=== PATIENT | female | born 1935 | race Caucasian/White ===

== ENCOUNTER → 2023-11-27 11:58 | Outpatient (REF) | payer OTHER, MEDICARE, SELFPAY ==
[2023-11-27 12:12] LABS: % Basophils 1.2 % (0-2); % Eosinophils 4.2 % (0-6); % Immature Granulocytes 0.3 % (0-0.5); % Lymphocytes 27.2 % (20.5-51.1); % Monocytes 4.9 % (1.7-9.3); % Neutrophils 62.2 % (42.2-75.2); Absolute Basophils 0.1 10^3/uL (0-0.2); Absolute Eosinophils 0.3 10^3/uL (0-0.7); Absolute Lymphocytes 1.9 10^3/uL (1.2-3.4); Absolute Monocytes 0.3 10^3/uL (0.1-0.6); Absolute Neutrophils 4.3 10^3/uL (1.4-6.5); Hematocrit 31.4 % (37.0-47.0); Mean Corp Hgb Conc. 31.8 g/dL (33.0-37.0); Mean Corpuscular Hgb 27.8 pg (27.0-31.0); Mean Corpuscular Volume 87.2 fL (81.0-99.0); Mean Platelet Volume 9.8 fL (7.4-10.4); Nucleated Red Blood Cells % 0 %; Platelet Count 479 10^3/uL (130-400); Red Cell Dist. Width 15.1 % (11.5-14.5); White Blood Cell Count 6.9 10^3/uL (4.8-10.8)
[2023-11-27 12:22] LABS: Blood Urea Nitrogen 17 mg/dl (7-17); Calcium 8.4 mg/dl (8.4-10.2); Carbon Dioxide 25 mmol/L (22-30); Chloride 110 mmol/L (98-107); Glucose 96 mg/dl (70-99); Potassium 3.9 mmol/L (3.5-5.1); Sodium 136 mmol/L (135-145); eGFR > 60.00
== END ==
LOC: OLABWHC 11:58
PROVIDERS: ATTENDING PHYSICIAN Family Medicine
DX: G20.A1 Parkinson's disease without dyskinesia, without mention of fluctuations (principal); R41.82 Altered mental status, unspecified; D64.9 Anemia, unspecified
CPT/HCPCS: 36415; 80048; 85025

== ENCOUNTER 2023-12-24 17:27 | Observation (INO) | payer MEDICARE, SELFPAY ==
[2023-12-24] VITALS (8 sets, daily range): BP systolic 124–193; BP diastolic 73–106; PULSE 82; O2SAT 97; BMI 15.8; BMI 16.5
--- NOTE | 2023-12-24 11:12 | ED.GENMED ---
History of Present Illness
General
Chief Complaint: Musculo-Skeletal Complaint
Source: patient
Exam Limitations: none
Time Seen by Provider: 12/24/23 10:37
Nursing documentation reviewed up to this point in time: agreed with
Travel History
Have you had any contact with someone who has COVID-19?: No
Do you have any symptoms of coronavirus? Fever > 100 degrees, chills, cough, shortness of breath, sore throat, loss of taste or smell, muscle aches, or headache?: No
History of Present Illness
History of Present Illness:
88-year-old female with past medical history of Parkinson's GERD presenting to the emergency department today with concerns of right-sided hip discomfort over the past 2 days. Woke up with this 2 days ago increased his comfort with movement and
ambulation. Denies fevers denies any overlying skin changes denies abdominal pain nausea vomiting change in bowel movements or additional concerns.
Review of Systems
Review of Systems
Allergies reviewed?: Yes
All Other Systems: ROS reviewed and negative except as documented in HPI and ROS
Phy Exam
Physical Exam
Physical Exam:
GENERAL: Alert , in no apparent distress
EYE: pupils equal and reactive
NECK: Supple, no significant adenopathy.
ENT: o/p clr, mmm.
CARDIAC: Regular rate and rhythm .
LUNGS: Clear breath sounds bilaterally, no acute respiratory distress, no wheezes/rales/rhonchi
ABDOMEN: Soft, without focal tenderness, no r/g, no cvat
NEUROLOGICAL: Alert and oriented, no focal neuro deficits
SKIN: Warm and dry, skin intact.
MUSCULOSKELETAL: Patient has significant discomfort of the right hip when flexing at the right hip. Has increased discomfort with passive range of motion as well at the hip otherwise able to move the knee and ankle without significant pain. No
tenderness palpation when palpating. No edema, well perfused.
PSYCH: Normal and appropriate interaction.
Course
Orders/Labs/Results
Orders:
Orders
12/24/23 11:06
Acetaminophen [Tylenol] 650 mg PO NOW STA
Hip, Right 2-3 Views [CR Hip - RT w/wo Pel 2-3 Vw*] Urgent
Comment:
Reason For Exam: right hip pain
Include a pelvis x-ray?: Yes
12/24/23 12:36
CT Pelvis W/o Iv Contrast Urgent
Comment:
Reason For Exam: hip pain cant walk
12/24/23 14:25
Case Management Consult ONCE
Case Management Consult: Other
Comment: L5 fx, needs higher level at [place]
Pt Eval And Treat Urgent
Activity Level: Ambulate
12/24/23 16:22
BMP [Basic Metabolic Panel] Urgent
CBC/With Diff [Complete Blood Count/With Diff] Urgent
Diazepam [Valium] 2 mg PO NOW STA
Vital Signs
Initial and Last Documented VS:
Initial Vital Signs
Temp Pulse Resp BP Pulse Ox
98.4 F 93 18 124/73 94
12/24/23 10:08 12/24/23 10:08 12/24/23 10:08 12/24/23 10:08 12/24/23 10:08
Last Documented Vital Signs
Temp Pulse Resp BP Pulse Ox
98.4 F 93 18 180/98 97
12/24/23 10:08 12/24/23 10:08 12/24/23 10:08 12/24/23 14:43 12/24/23 15:30
MDM/Problems Addressed
MDM/Problems Addressed:
88-year-old female presenting to the emergency department today with concerns of right-sided hip discomfort that she awoken with 2 days ago. Ongoing difficulty with ambulation secondary to this. No fevers no systemic symptoms no GI normal
neurologic examination of the lower extremities. Does have increased pain with movement but not with specific palpation to the area. Initial x-ray without signs of fracture CT scan showed insufficient fracture bilaterally of the sacrum as well as
an L5 transverse process fracture. Case was discussed with neurosurgery on-call recommending abdominal binder as well as muscle relaxer. No specific surgery required for this. Patient was additionally seen by physical therapy as well as case
management and will need to be admitted to pending further placement.
*Critical Care Note
Total Time (30-74mins, 75-104mins- exclusive of procedures): Not Applicable
ED Attending Note
-
Portions of this chart may have been created with voice recognition software.� Occasional wrong word or��sound alike� substitutions may have occurred due to the inherent limitations of voice recognition software.
Discharge Plan
Departure
Patient Disposition: Admit
Date of Disposition: 12/24/23
Time of Disposition: 16:38
Admit to: Med/Surg
Admit to doctor: Do
Presentation/result/management discussed w/ accepting MD/DO: Hospitalist
Condition: Good
Covid-19: Not Applicable
Discharge Problem:
Bilateral sacral insufficiency fracture, Closed fracture of transverse process of lumbar vertebra
Prescriptions:
No Action
acetaminophen 325 mg Tablet
650 mg PO Q6HPRN PRN (Reason: mild pain)
cyanocobalamin (vitamin B-12) 500 mcg Tablet
500 mcg PO DAILY
benzonatate 100 mg Capsule
100 mg PO Q8HPRN PRN (Reason: cough)
mirtazapine 15 mg Tablet
15 mg PO HS
ferrous sulfate 325 mg (65 mg iron) Tablet,Delayed Release (Dr/Ec)
325 mg PO MOWEFR
wcmbgpiky-exinsyip-bcxrddhzqz 37.5-150-200 mg Tablet
1 tab PO TID
melatonin 5 mg Tablet
5 mg PO HS
multivitamin Tablet
1 tab PO DAILY
pantoprazole 20 mg Tablet,Delayed Release (Dr/Ec)
20 mg PO DAILY
calcium carbonate [Calcium 500] 500 mg calcium (1,250 mg) Tablet,Chewable
500 mg PO DAILY
gabapentin 100 mg Capsule
100 mg PO TID
Boost Breeze Liquid
1 ea PO BID
Referrals:
Gali Medel MD [Family Provider] -
Interventions
Interventions:
*General Assessment Last Done: 12/24/23 11:28
*Neglect/Abuse Screening Last Done: 12/24/23 11:28
ED- Fall Risk Assessment Last Done: 12/24/23 13:16
*ED COVID-19 Vaccine History Last Done: 12/24/23 10:17
ED-Musculoskeletal Assessment Last Done: 12/24/23 11:28
[2023-12-24] MEDS: TYLENOL 650 MG PO (11:24)
--- NOTE | 2023-12-24 15:46 | CM ---
Addendum entered by Yolis Shukla RN 12/24/23 16:14:
CM spoke with [facility] admissions liaison Bharat ([phone]). Per Bharat, patient was admitted to [facility] 11/17-12/10; then to [facility] since. PT recommending SNF/rehab. [facility] has no beds available at this time. If SNF placement is needed, it will
have to be private pay. Spoke with patient's son Андрей and updated on the situation. Not happy since they put a down payment of some type last week of $90K for care. CM continues to be available to patient/family and is monitoring medical plan
for needs at discharge.
Plan: Discharge plans will depend on the patient's progress. Attending updated on above.
Original Note:
Received CM consult for discharge planning for NH placement. Reviewed the chart notes and spoke with the patient at the bedside. The patient resides at [facility]. The patient uses a rollator with ambulation. The patient has a shower chair and
shower rails. The patient report no VN, but was in a SNF in [facility]. PT recommending SNF. CM to contact family with regards to SNF placement. CM continues to be available to patient/family and is monitoring medical plan for needs at
discharge.
Plan: Discharge plans will depend on the patient's progress.
[2023-12-24] MEDS: VALIUM 2 MG PO (16:29)
[2023-12-24 16:51] LABS: % Eosinophils 3.7 % (0-6); % Immature Granulocytes 0.4 % (0-0.5); % Lymphocytes 27.2 % (20.5-51.1); % Monocytes 3.5 % (1.7-9.3); % Neutrophils 64.2 % (42.2-75.2); Absolute Basophils 0.1 10^3/uL (0-0.2); Absolute Eosinophils 0.3 10^3/uL (0-0.7); Absolute Lymphocytes 2.2 10^3/uL (1.2-3.4); Absolute Monocytes 0.3 10^3/uL (0.1-0.6); Absolute Neutrophils 5.2 10^3/uL (1.4-6.5); Hematocrit 32.8 % (37.0-47.0); Hemoglobin 10.9 g/dL (12.0-16.0); Mean Corp Hgb Conc. 33.2 g/dL (33.0-37.0); Mean Corpuscular Hgb 27.4 pg (27.0-31.0); Mean Corpuscular Volume 82.4 fL (81.0-99.0); Mean Platelet Volume 9.1 fL (7.4-10.4); Nucleated Red Blood Cells % 0 %; Platelet Count 266 10^3/uL (130-400); Red Blood Cell Count 3.98 10^6/uL (4.20-5.40); Red Cell Dist. Width 17.2 % (11.5-14.5); White Blood Cell Count 8.1 10^3/uL (4.8-10.8)
--- NOTE | 2023-12-24 17:10 | HPS.HSE ---
Family Physician
-
Family Physician: Gali Medel MD
Chief Complaint
-
right hip pain
History of Present Illness
88-year-old female with past medical history of osteoporosis Parkinson's, GERD, gastric ulcer status post bowel resection, lactose intolerance, chronic loose stools, presenting for right-sided hip pain over the past 2 days. She woke up 2 days ago
increased pain with movement and ambulation in the right lower back and butt. She normally ambulates with walker. She denies any falls. Denies fevers, nausea or vomiting, diarrhea or constipation or urinary symptoms.
Patient was supposed to get started on Prolia by her primary after her last DEXA scan but she never got started on this.
Medical History
Past Medical History
Past Medical History: Reports Other (osteoporosis, Parkinson's, GERD, gastric ulcer status post bowel resection, lactose intolerance)
Past Surgical History: Reports Bowel Resection
Social History
Tobacco: Non-smoker
Alcohol: Occasional
Drug: None
Family History
Family History: Not pertinent
Allergies / Home Medications
Allergies reflects when Allergies were last updated in [employer].
Home Medications with original date entered in [employer]
Allergy/Medication List:
Allergies
Allergy/AdvReac Type Severity Reaction Status Date / Time
oxycodone Allergy Pharmacy Verified 12/24/23 12:57
to Review
Home Medications
acetaminophen 325 mg tablet 650 mg PO Q6HPRN PRN mild pain 12/24/23
benzonatate 100 mg capsule 100 mg PO Q8HPRN PRN cough 12/24/23
calcium carbonate 500 mg calcium (1,250 mg) chewable tablet (Calcium 500) 500 mg PO DAILY 12/24/23
carbidopa 37.5 mg-levodopa 150 mg-entacapone 200 mg tablet 1 tab PO TID 12/24/23
cyanocobalamin (vitamin B-12) 500 mcg tablet 500 mcg PO DAILY 12/24/23
ferrous sulfate 325 mg (65 mg iron) tablet,delayed release 325 mg PO MOWEFR 12/24/23
food supplemt, lactose-reduced 1 ea PO BID 12/24/23
gabapentin 100 mg capsule 100 mg PO TID 12/24/23
melatonin 5 mg tablet 5 mg PO HS insomnia 12/24/23
mirtazapine 15 mg tablet 15 mg PO HS 12/24/23
multivitamin 1 tab PO DAILY 12/24/23
pantoprazole 20 mg tablet,delayed release 20 mg PO DAILY 12/24/23
Review of Systems
-
History Source: Patient
A 12 point ROS was completed and negative except as noted: Yes
Constitutional: Reports No Symptoms
EENT: Reports No Symptoms
Respiratory: Reports No Symptoms
Cardiac: Reports No Symptoms
Abdomen/GI: Reports No Symptoms
: Reports No Symptoms
Musculoskeletal: Reports No Symptoms
Skin: Reports No Symptoms
Neurological: Reports No Symptoms
Endocrine: Reports No Symptoms
Hematologic/Lymphatic: Reports No Symptoms
Psych: Reports No Symptoms
Physical Exam
Vital Signs
Vital Signs
Temp Pulse Resp BP Pulse Ox
98.4 F 80 18 193/89 95
12/24/23 10:08 12/24/23 17:00 12/24/23 10:08 12/24/23 17:00 12/24/23 17:00
Physical Exam
General: Well Developed, Well Nourished and No Apparent Distress
HEENT: NormoCephalic, Moist mucous membranes and Atraumatic
Respiratory: Clear
Cardiac: S1/S2 and Regular Rhythm; No Murmur or Rub
GI: Soft, Non Tender, Non Distended and Normal Bowel Sounds; No Organomegaly
Rectal: Deferred by Provider
Musculoskeletal: No Clubbing, No Cyanosis and No Edema
Skin: No Rash
Neuro: Nonfocal/grossly intact
Laboratory Results
-
03/11/24 16:30
Data Reviewed
-
Lab Data: Labs Reviewed by me
Old Records: Reviewed
Impression/Plan
-
IMPRESSION:
PLAN:
# Insufficiency fractures of bilateral sacrum
# Acute fracture of proximal aspect of right transverse process of L5
# Osteoporosis
-As per pelvic CT
-Hip x-ray negative
-Tylenol for pain
-Neurosurgery recommended back brace and muscle relaxer and did not recommend surgery
-Patient given Valium
-PT/case management
-Continue calcium and vitamin D supplement which patient has been taking
-Outpatient follow-up for Prolia
# Hypertensive urgency secondary to pain
-No history of elevated blood pressure
-As needed hydralazine
Lower extremity edema secondary to venous insufficiency
-Improved with raising legs
Parkinson's disease
-Continue carbidopa-levodopa
-Continue gabapentin
Anxiety/depression
-Continue mirtazapine
GERD
History of gastric ulcer status post bowel resection
-Continue Protonix
Lactose intolerance
DNR/DNI
DVT prophylaxis- heparin
Regular diet
[2023-12-24 17:16] LABS: Blood Urea Nitrogen 17 mg/dl (7-17); Calcium 8.6 mg/dl (8.4-10.2); Carbon Dioxide 25 mmol/L (22-30); Chloride 111 mmol/L (98-107); Estimated Creatinine Clearance 35 ml/min; Glucose 93 mg/dl (70-99); Potassium 4.4 mmol/L (3.5-5.1); Sodium 137 mmol/L (135-145); eGFR > 60.00
[2023-12-24] MEDS: APRESOLINE 5 MG IV (18:51)
[2023-12-24] MEDS: FEOSOL 325 MG PO (18:51)
--- NOTE | 2023-12-24 19:29 | PTCARENOTE ---
Pt received from ED. Hydralazine 5mg VA administered for elevated BP as prdered. Pt is AAOx3 nd can make needs known.
[2023-12-24] MEDS: HEPARIN 5000 UNITS SC (20:52)
[2023-12-24] MEDS: SINEMET 25-100 1.5 TABLET PO (21:00)
[2023-12-24] MEDS: COMTAN 200 MG PO (21:00)
[2023-12-24] MEDS: NEURONTIN 100 MG PO (21:00)
[2023-12-24] MEDS: REMERON 15 MG PO (21:55)
[2023-12-24] MEDS: MELATONIN 5 MG PO (21:55)
[2023-12-25] MEDS: TYLENOL 650 MG PO ×3 (04:03→23:03)
[2023-12-25 04:10] VITALS: BP 151/82; BP 152/74; PULSE 97
[2023-12-25 07:55] VITALS: BP 161/85
--- NOTE | 2023-12-25 08:00 | W.PN.HOSP.TC ---
Addendum entered and electronically signed by Dominic Alvarenga MD 12/25/23 13:48:
Add amlodipine 2.5 mg daily and oxy prn if not true allergy
Original Note:
Today's Communication/Plan
-
pain control, pt/ot. Discharge planning in progress
Assessment / Plan
Assessment / Plan
Physical Exam
General: Well Developed, Well Nourished and No Apparent Distress
HEENT: NormoCephalic, Moist mucous membranes and Atraumatic
Respiratory: Clear
Cardiac: S1/S2 and Regular Rhythm; No Murmur or Rub
GI: Soft, Non Tender, Non Distended and Normal Bowel Sounds; No Organomegaly
Rectal: Deferred by Provider
Musculoskeletal: No Clubbing, No Cyanosis and No Edema
Skin: No Rash
Neuro: Nonfocal/grossly intact
A/P:
# Insufficiency fractures of bilateral sacrum
# Acute fracture of proximal aspect of right transverse process of L5
# Osteoporosis
-As per pelvic CT
-Hip x-ray negative
-Tylenol for pain
-Neurosurgery recommended back brace and muscle relaxer and did not recommend surgery
-Patient given Valium
-PT/case management
-Continue calcium and vitamin D supplement which patient has been taking
-Outpatient follow-up for Prolia
# Hypertensive urgency secondary to pain
-No history of elevated blood pressure
-As needed hydralazine
Lower extremity edema secondary to venous insufficiency
-Improved with raising legs
Parkinson's disease
-Continue carbidopa-levodopa
-Continue gabapentin
Anxiety/depression
-Continue mirtazapine
GERD
History of gastric ulcer status post bowel resection
-Continue Protonix
Lactose intolerance
DNR/DNI
DVT prophylaxis- heparin
Regular diet
Anticipated Discharge: Today
Subjective/Interval History
-
Date of Service: December 25, 2023
pain when moving around
Objective Data
-
Labs:
Laboratory Results
12/25/23
07:50
WBC Pending
Hgb Pending
Hct Pending
Plt Count Pending
Sodium Pending
Potassium Pending
Chloride Pending
Carbon Dioxide Pending
BUN Pending
Creatinine Pending
Glucose Pending
Calcium Pending
Total Bilirubin Pending
AST Pending
ALT Pending
Alkaline Phosphatase Pending
Vital Signs:
Vital Signs
Temp Pulse Resp BP Pulse Ox
98.3 F 90 20 133/80 95
12/24/23 22:00 12/24/23 22:00 12/24/23 22:00 12/24/23 22:00 12/24/23 22:00
I&O
12/24/23 12/25/23 12/26/23
06:59 06:59 06:59
Intake Total 480 / 480
Output Total 600 / 600
Balance -120 / -120
Review of Systems
-
All other systems: Reviewed and negative
[2023-12-25 08:34] LABS: % Basophils 0.7 % (0-2); % Eosinophils 5.5 % (0-6); % Immature Granulocytes 0.3 % (0-0.5); % Lymphocytes 43.8 % (20.5-51.1); % Monocytes 4.1 % (1.7-9.3); % Neutrophils 45.6 % (42.2-75.2); Absolute Basophils 0.1 10^3/uL (0-0.2); Absolute Eosinophils 0.4 10^3/uL (0-0.7); Absolute Lymphocytes 3.1 10^3/uL (1.2-3.4); Absolute Monocytes 0.3 10^3/uL (0.1-0.6); Absolute Neutrophils 3.2 10^3/uL (1.4-6.5); Hemoglobin 11.5 g/dL (12.0-16.0); Mean Corp Hgb Conc. 31.9 g/dL (33.0-37.0); Mean Corpuscular Hgb 27.3 pg (27.0-31.0); Mean Corpuscular Volume 85.3 fL (81.0-99.0); Mean Platelet Volume 9.4 fL (7.4-10.4); Nucleated Red Blood Cells % 0 %; Platelet Count 308 10^3/uL (130-400); Red Blood Cell Count 4.22 10^6/uL (4.20-5.40); Red Cell Dist. Width 17.4 % (11.5-14.5)
[2023-12-25] MEDS: VITAMIN B-12 500 MCG PO (08:35)
[2023-12-25] MEDS: PROTONIX 20 MG PO (08:42)
[2023-12-25] MEDS: NEURONTIN 100 MG PO ×3 (08:43→23:03)
[2023-12-25] MEDS: THERAGRAN 1 TABLET PO (08:43)
[2023-12-25] MEDS: OSCAL CAL 500 500 MG PO (08:43)
[2023-12-25] MEDS: SINEMET 25-100 1.5 TABLET PO ×3 (08:43→23:03)
[2023-12-25] MEDS: COMTAN 200 MG PO ×3 (08:43→23:03)
[2023-12-25] MEDS: HEPARIN 5000 UNITS SC ×2 (08:44→20:12)
[2023-12-25 09:18] LABS: ALT (SGPT) < 10 U/L (0-35); AST (SGOT) 19 U/L (14-36); Albumin 3.3 g/dl (3.5-5.0); Alkaline Phosphatase 172 U/L (38-126); Blood Urea Nitrogen 15 mg/dl (7-17); Calcium 8.8 mg/dl (8.4-10.2); Carbon Dioxide 25 mmol/L (22-30); Chloride 106 mmol/L (98-107); Estimated Creatinine Clearance 34 ml/min; Glucose 89 mg/dl (70-99); Potassium 3.9 mmol/L (3.5-5.1); Sodium 137 mmol/L (135-145); Total Bilirubin 0.6 mg/dl (0.2-1.3); eGFR > 60.00
[2023-12-25 15:07] VITALS: BP 118/62
[2023-12-25 16:10] VITALS: BP 151/82; BP 152/74; PULSE 97
[2023-12-25 16:35] VITALS: BMI 15.1
[2023-12-25] MEDS: NORVASC 2.5 MG PO (17:23)
[2023-12-25 22:30] VITALS: BP 119/57
[2023-12-25] MEDS: ZOFRAN 4 MG IV (22:32)
[2023-12-25] MEDS: MELATONIN 5 MG PO (23:03)
[2023-12-25] MEDS: REMERON 15 MG PO (23:03)
[2023-12-26 07:20] VITALS: BP 96/48
--- NOTE | 2023-12-26 09:00 | W.PN.HOSP.TC ---
Addendum entered and electronically signed by Dominic Alvarenga MD 12/26/23 12:49:
Will also obtain echocardiogram
Original Note:
Today's Communication/Plan
-
Continue pain control. Check stool studies.
Assessment / Plan
Assessment / Plan
Physical Exam
General: Well Developed, Well Nourished and No Apparent Distress
HEENT: NormoCephalic, Moist mucous membranes and Atraumatic
Respiratory: Clear
Cardiac: S1/S2 and Regular Rhythm; No Murmur or Rub
GI: Soft, Non Tender, Non Distended and Normal Bowel Sounds; No Organomegaly
Rectal: Deferred by Provider
Musculoskeletal: No Clubbing, No Cyanosis and No Edema
Skin: No Rash
Neuro: Nonfocal/grossly intact
A/P:
# Insufficiency fractures of bilateral sacrum
# Acute fracture of proximal aspect of right transverse process of L5
# Osteoporosis
-As per pelvic CT
-Hip x-ray negative
-Tylenol for pain
-Neurosurgery recommended back brace and muscle relaxer and did not recommend surgery
-Patient given Valium
-PT/case management
-Continue calcium and vitamin D supplement which patient has been taking
-Outpatient follow-up for Prolia
-Updated son over the phone today, Андрей (Daquan s number is wrong and correct is [phone])
#Diarrhea
-Will check C. difficile and stool studies
-Will do some gentle hydration today
# Elevated blood pressure-->pain might be contributing so at this point she is not clearly hypertensive
-Started her on amlodipine 2.5 mg p.o. daily--> discontinue today
-No history of elevated blood pressure
-As needed hydralazine-will keep if needed and reeval
Lower extremity edema secondary to venous insufficiency
-Improved with raising legs
Parkinson's disease
-Continue carbidopa-levodopa
-Continue gabapentin
Anxiety/depression
-Continue mirtazapine
GERD
History of gastric ulcer status post bowel resection
-Continue Protonix
Lactose intolerance
DNR/DNI
DVT prophylaxis- heparin
Regular diet
Anticipated Discharge: 24 - 48 hours
Subjective/Interval History
-
Date of Service: December 26, 2023
patient c/o diarrhea, has generalized weakness. Pain is tolerable
Objective Data
-
Vital Signs:
Vital Signs
Temp Pulse Resp BP Pulse Ox
98.9 F 86 16 96/48 94
12/26/23 07:20 12/26/23 07:20 12/26/23 07:20 12/26/23 07:20 12/26/23 07:20
I&O
12/25/23 12/26/23 12/27/23
06:59 06:59 06:59
Intake Total 480 / 480 960 / 960
Output Total 600 / 600
Balance -120 / -120 960 / 960
[2023-12-26] MEDS: SINEMET 25-100 1.5 TABLET PO ×3 (09:22→21:00)
[2023-12-26] MEDS: PROTONIX 20 MG PO (09:22)
[2023-12-26] MEDS: OSCAL CAL 500 500 MG PO (09:23)
[2023-12-26] MEDS: VITAMIN B-12 500 MCG PO (09:23)
[2023-12-26] MEDS: COMTAN 200 MG PO ×3 (09:23→21:00)
[2023-12-26] MEDS: NORVASC 2.5 MG PO (09:23)
[2023-12-26] MEDS: NEURONTIN 100 MG PO ×3 (09:24→21:00)
[2023-12-26] MEDS: THERAGRAN 1 TABLET PO (09:24)
[2023-12-26] MEDS: HEPARIN 5000 UNITS SC ×2 (09:25→20:13)
[2023-12-26] MEDS: FEOSOL 325 MG PO (09:27)
[2023-12-26] MEDS: IMODIUM 2 MG PO ×2 (13:36→20:15)
[2023-12-26] MEDS: 0.45%NACL 1000 IV (13:36)
--- NOTE | 2023-12-26 15:01 | CM ---
CM following re: d/c planning
Chart reviewed
CM called & left a message for patient's son Андрей to discuss disposition plan; awaiting a return call at this time
CM spoke with Yadi joe/Sasha and she confirmed that the patient is not a [facility] patient
The number listed in the patient's chart for Daquan is not the correct number
Pt is nearing being medically stable for d/c and post d/c recommendation is for SNF
Pt is currently in observation status as she does not meet inpatient admission criteria
Pt family would need to pay privately for SNF prior to returning back to her [place] home
CM will continue to monitor patient progress and assist with needs at d/c as indicated
PLAN; CM following for d/c needs
[2023-12-26 15:33] VITALS: BP 139/68
[2023-12-26] MEDS: TUMS 2 TABLET PO (20:47)
[2023-12-26] MEDS: REMERON 15 MG PO (21:00)
[2023-12-26] MEDS: MELATONIN 5 MG PO (21:00)
[2023-12-26 23:16] VITALS: BP 122/62
[2023-12-27 06:37] VITALS: BMI 15.1
[2023-12-27 07:00] VITALS: BP 140/67
[2023-12-27 07:49] LABS: % Basophils 0.6 % (0-2); % Eosinophils 5.2 % (0-6); % Immature Granulocytes 0.4 % (0-0.5); % Lymphocytes 32.5 % (20.5-51.1); % Monocytes 5.8 % (1.7-9.3); % Neutrophils 55.5 % (42.2-75.2); Absolute Eosinophils 0.3 10^3/uL (0-0.7); Absolute Lymphocytes 1.7 10^3/uL (1.2-3.4); Absolute Monocytes 0.3 10^3/uL (0.1-0.6); Absolute Neutrophils 2.9 10^3/uL (1.4-6.5); Hematocrit 32.7 % (37.0-47.0); Hemoglobin 10.8 g/dL (12.0-16.0); Mean Corpuscular Volume 84.7 fL (81.0-99.0); Mean Platelet Volume 9.6 fL (7.4-10.4); Nucleated Red Blood Cells % 0 %; Platelet Count 255 10^3/uL (130-400); Red Blood Cell Count 3.86 10^6/uL (4.20-5.40); Red Cell Dist. Width 17.2 % (11.5-14.5); White Blood Cell Count 5.2 10^3/uL (4.8-10.8)
[2023-12-27 08:28] LABS: Blood Urea Nitrogen 24 mg/dl (7-17); Calcium 7.8 mg/dl (8.4-10.2); Carbon Dioxide 23 mmol/L (22-30); Chloride 111 mmol/L (98-107); Estimated Creatinine Clearance 25 ml/min; Glucose 87 mg/dl (70-99); Potassium 3.7 mmol/L (3.5-5.1); Sodium 135 mmol/L (135-145); eGFR 54.87
--- NOTE | 2023-12-27 08:51 | W.PN.HOSP.TC ---
Today's Communication/Plan
-
Continue current management. Discharge planning in progress
Assessment / Plan
Assessment / Plan
Physical Exam
General: Well Developed, Well Nourished and No Apparent Distress
HEENT: NormoCephalic, Moist mucous membranes and Atraumatic
Respiratory: Clear
Cardiac: S1/S2 and Regular Rhythm; No Murmur or Rub
GI: Soft, Non Tender, Non Distended and Normal Bowel Sounds; No Organomegaly
Rectal: Deferred by Provider
Musculoskeletal: No Clubbing, No Cyanosis and No Edema
Skin: No Rash
Neuro: Nonfocal/grossly intact
A/P:
# Insufficiency fractures of bilateral sacrum
# Acute fracture of proximal aspect of right transverse process of L5
# Osteoporosis
-As per pelvic CT
-Hip x-ray negative
-Tylenol for pain
-Neurosurgery recommended back brace and muscle relaxer and did not recommend surgery
-Patient given Valium
-PT/case management
-Continue calcium and vitamin D supplement which patient has been taking
-Outpatient follow-up for Prolia
-Updated son over the phone yesterday, Андрей (Daquan s number is wrong and correct is [phone])
-Updated both sons at bedside today on 12/26
#Diarrhea
-Negative C. difficile and stool studies summary pending
-Finished IV fluid
# Elevated blood pressure-->pain might be contributing so at this point she is not clearly hypertensive
-Off antihypertensives
-No history of elevated blood pressure
-As needed hydralazine-will keep if needed and reeval
Lower extremity edema secondary to venous insufficiency
-Improved with raising legs
-Echo pending
Parkinson's disease
-Continue carbidopa-levodopa
-Continue gabapentin
Anxiety/depression
-Continue mirtazapine
GERD
History of gastric ulcer status post bowel resection
-Continue Protonix
Lactose intolerance
DNR/DNI
DVT prophylaxis- heparin
Regular diet
Anticipated Discharge: Today
Subjective/Interval History
-
Date of Service: December 27, 2023
Patient denies any chest pain or shortness of breath. Still having some loose stools
Objective Data
-
Labs:
Laboratory Results
12/27/23
06:57
WBC 5.2
Hgb 10.8 L
Hct 32.7 L
Plt Count 255
Sodium 135
Potassium 3.7
Chloride 111 H
Carbon Dioxide 23
BUN 24 H
Creatinine 1.0
Glucose 87
Calcium 7.8 L
Vital Signs:
Vital Signs
Temp Pulse Resp BP Pulse Ox
97.9 F 68 18 140/67 98
12/27/23 07:00 12/27/23 07:00 12/27/23 07:00 12/27/23 07:00 12/27/23 07:00
I&O
12/26/23 12/27/23 12/28/23
06:59 06:59 06:59
Intake Total 960 / 960 480 / 480
Output Total 700 / 700
Balance 960 / 960 -220 / -220
[2023-12-27] MEDS: SINEMET 25-100 1.5 TABLET PO ×2 (09:10→15:33)
[2023-12-27] MEDS: PROTONIX 20 MG PO (09:10)
[2023-12-27] MEDS: VITAMIN B-12 500 MCG PO (09:13)
[2023-12-27] MEDS: COMTAN 200 MG PO ×2 (09:14→15:34)
[2023-12-27] MEDS: OSCAL CAL 500 500 MG PO (09:14)
[2023-12-27] MEDS: HEPARIN 5000 UNITS SC (09:15)
[2023-12-27] MEDS: NEURONTIN 100 MG PO ×2 (09:15→15:34)
[2023-12-27] MEDS: THERAGRAN 1 TABLET PO (09:15)
--- NOTE | 2023-12-27 09:26 | CM ---
Addendum entered by Meg Copeland 12/27/23 15:36:
CM received a return call from Jabari joe/ [employer] with insurance approval
Pt approved for 5 days
SOC 12/27/23 with NRD 12/31/23
Kassy Palacios is the concurrent UR RN assigned and she can be reached at
Fax:
[facility] reference # [id number]
[facility] & inhouse transport forms completed and placed on patient chart
Transport p/u time confirmed by [facility] at 7:45pm; CM notified Bharat Cuellar at the facility of the same
Plan; d/c to [facility]
Report: [phone]

Original Note:
CM following re: d/c planning
Chart reviewed
Pt discharge anticipated within the next day or two
Pain management efforts continue; hip xray is (-)
Per hospitalist at this time awaiting results of echo
CM did submit authorization for SNF placement through [employer] ref.#[id number] awaiting updated therapy notes to submit clinicals
CM also spoke with the Karan Cuellar/admissions liaison@ [facility] to provide her an update as well
CM will continue to remain available to assist with SNF d/c pending insurance authorization
PLAN; d/c to [facility]
(pending reference number: [id number])
[2023-12-27 12:38] VITALS: BMI 15.1
[2023-12-27 15:00] VITALS: BP 128/70
--- NOTE | 2023-12-27 15:26 | W.DCSUMMARY ---
Discharge Summary
Discharge Data
Date of Admission: 12/24/23
Date of Discharge: 12/27/23
-
Pending Results: No
Hospital Course
Patient 88-year-old history of Parkinson's, osteoporosis, presented to the hospital with right hip pain and ambulatory dysfunction. She was found to have insufficiency fractures of bilateral sacrum. She was treated with pain medications and PT OT
evaluation but recommended fci facility. Blood pressure was elevated due to pain and has been under control once the pain has been better. She also had mild edema of lower extremities but no evidence of heart failure. She had an
echocardiogram that was unremarkable. She also had some diarrhea and C. difficile was negative. Stool culture pending. She has been started on some antidiarrhea medications. Patient otherwise stable and she is being discharged in stable
condition today.
Discharge duration: 35 minutes
Discharge Plan
-
Patient Disposition: Shelter/SNF
Discharge Diagnosis/Procedures: Bilateral sacral insufficiency fractures. Elevated blood pressure. Parkinson's disease. History of peptic ulcer disease.
Diet: Low Cholesterol
Activity: As tolerated
Blood Work: Please PCP to order CBC, BMP within 1 week
Other Services: PT and OT
Referrals:
Gali Medel MD [Family Provider] - in less than 1 week
Prescriptions:
New
loperamide 2 mg Capsule
2 mg PO Q6HPRN PRN (Reason: diarrhea) Qty: 10 0RF
oxycodone 5 mg Tablet
5 mg PO Q4HPRN PRN (Reason: severe pain) Qty: 4 0RF
Continued
acetaminophen 325 mg Tablet
650 mg PO Q6HPRN PRN (Reason: mild pain)
cyanocobalamin (vitamin B-12) 500 mcg Tablet
500 mcg PO DAILY
benzonatate 100 mg Capsule
100 mg PO Q8HPRN PRN (Reason: cough)
mirtazapine 15 mg Tablet
15 mg PO HS
ferrous sulfate 325 mg (65 mg iron) Tablet,Delayed Release (Dr/Ec)
325 mg PO MOWEFR
efkobcogo-lepvnlig-overtxojmb 37.5-150-200 mg Tablet
1 tab PO TID
melatonin 5 mg Tablet
5 mg PO HS
multivitamin Tablet
1 tab PO DAILY
pantoprazole 20 mg Tablet,Delayed Release (Dr/Ec)
20 mg PO DAILY
calcium carbonate [Calcium 500] 500 mg calcium (1,250 mg) Tablet,Chewable
500 mg PO DAILY
gabapentin 100 mg Capsule
100 mg PO TID
food supplemt, lactose-reduced Liquid
1 ea PO BID
Discharge Orders:
Discharge Patient (As Directed); Ordered 12/27/23
Ordered By: Dominic Alvarenga
Discharge Date and Time
Discharge Date/Time: 12/27/23 20:23
[2023-12-27] MEDS: IMODIUM 2 MG PO (15:34)
[2023-12-27] MEDS: TYLENOL 650 MG PO (19:54)
--- NOTE | 2023-12-27 20:17 | PTCARENOTE ---
Pt discharged to [facility] per orders. All belongings sent with pt
== END 2023-12-27 20:23 ==
LOC: 4 EAST ACU 17:27
PROVIDERS: Physician Assistant; ADMITTING PHYSICIAN Hospitalist; ATTENDING PHYSICIAN Hospitalist; EMERGENCY PHYSICIAN Emergency Medicine; FAMILY PHYSICIAN Family Medicine
DX: M80.08XA Age-related osteoporosis with current pathological fracture, vertebra(e), initial encounter for fracture (principal); M25.551 Pain in right hip; G20.A1 Parkinson's disease without dyskinesia, without mention of fluctuations; K21.9 Gastro-esophageal reflux disease without esophagitis; E73.9 Lactose intolerance, unspecified; R60.0 Localized edema; M54.50 Low back pain, unspecified; F32.A Depression, unspecified; R19.7 Diarrhea, unspecified; I16.0 Hypertensive urgency; F41.9 Anxiety disorder, unspecified; I87.2 Venous insufficiency (chronic) (peripheral); X58.XXXA Exposure to other specified factors, initial encounter; Z87.11 Personal history of peptic ulcer disease; Z90.49 Acquired absence of other specified parts of digestive tract; Z88.5 Allergy status to narcotic agent; Z66 Do not resuscitate
CPT/HCPCS: 72192; 73502; 80048; 80053; 85025; 87045; 87046; 87070; 87324; 87427; 87449; 93306; 97116; 97530; 99285; G0378

== ENCOUNTER → 2023-12-31 11:48 | Outpatient (REF) | payer OTHER, MEDICARE, SELFPAY ==
[2023-12-31 12:29] LABS: Hematocrit 33.3 % (37.0-47.0); Hemoglobin 10.3 g/dL (12.0-16.0); Mean Corp Hgb Conc. 30.9 g/dL (33.0-37.0); Mean Corpuscular Hgb 27.3 pg (27.0-31.0); Mean Corpuscular Volume 88.3 fL (81.0-99.0); Mean Platelet Volume 10.1 fL (7.4-10.4); Platelet Count 297 10^3/uL (130-400); Red Blood Cell Count 3.77 10^6/uL (4.20-5.40); Red Cell Dist. Width 17.4 % (11.5-14.5); White Blood Cell Count 6.9 10^3/uL (4.8-10.8)
[2023-12-31 13:06] LABS: ALT (SGPT) < 10 U/L (0-35); AST (SGOT) 23 U/L (14-36); Albumin 2.8 g/dl (3.5-5.0); Alkaline Phosphatase 128 U/L (38-126); Blood Urea Nitrogen 20 mg/dl (7-17); Calcium 8.4 mg/dl (8.4-10.2); Carbon Dioxide 25 mmol/L (22-30); Chloride 108 mmol/L (98-107); Glucose 94 mg/dl (70-99); Potassium 4.4 mmol/L (3.5-5.1); Sodium 138 mmol/L (135-145); Total Bilirubin 0.3 mg/dl (0.2-1.3); Total Protein 5.2 g/dl (6.3-8.2); eGFR > 60.00
== END ==
LOC: OLABWHC 11:48
PROVIDERS: ATTENDING PHYSICIAN Family Medicine
DX: N18.9 Chronic kidney disease, unspecified (principal); G20.A1 Parkinson's disease without dyskinesia, without mention of fluctuations; C91.90 Lymphoid leukemia, unspecified not having achieved remission
CPT/HCPCS: 36415; 80053; 85027

== ENCOUNTER 2024-01-03 20:21 | Inpatient (IN) | payer MEDICARE, SELFPAY ==
[2024-01-03] VITALS (10 sets, daily range): BP systolic 90–141; BP diastolic 47–76; BMI 16.2
--- NOTE | 2024-01-03 16:00 | ED.GENMED ---
History of Present Illness
General
Chief Complaint: Fever
Time Seen by Provider: 01/03/24 15:51
Travel History
Have you had any contact with someone who has COVID-19?: Unable to Answer
Do you have any symptoms of coronavirus? Fever > 100 degrees, chills, cough, shortness of breath, sore throat, loss of taste or smell, muscle aches, or headache?: Yes
Symptoms:: cough, fever
History of Present Illness
History of Present Illness:
Patient is an 88-year-old female currently a DNR with past medical history of dyspepsia, chronic kidney disease, iron deficiency anemia, osteoporosis, chronic lymphocytic leukemia, insomnia, Parkinson's disease, depression, and vitamin B12
deficiency anemia who currently resides at [facility], here today via EMS for a fever and suspected pneumonia. Patient has had a cough of the past couple of days associated with fever. An x-ray was ordered at the nursing
facility which revealed findings of pneumonia. Patient was ultimately directed to the emergency department given this. Patient denies vomiting. No abdominal pain. She has been able to tolerate p.o.
Review of Systems
Review of Systems
All Other Systems: ROS reviewed and negative except as documented in HPI and ROS
Phy Exam
Physical Exam
Physical Exam:
GENERAL: Alert , in no apparent distress
EYE: pupils equal and reactive
NECK: Supple, no significant adenopathy.
ENT: o/p clr, mmm.
CARDIAC: Regular rate and rhythm .
LUNGS: Diminished air movement, scattered rales/rhonchi, no acute respiratory distress, no wheezes
ABDOMEN: Soft, without focal tenderness, no r/g, no cvat
NEUROLOGICAL: Alert and oriented, no focal neuro deficits
SKIN: Warm and dry, skin intact.
MUSCULOSKELETAL: No edema, well perfused.
PSYCH: Normal and appropriate interaction.
Course
Orders/Labs/Results
Orders:
Orders
01/03/24 15:46
EKG [Electrocardiogram (*1)] Urgent
Reason for Study: Fatigue / Weakness
EKG- Treatment ONCE
01/03/24 15:50
COVID-19 Antigen Urgent
Source: Nasal Swab
Complete Blood Count/With Diff Urgent
Comprehensive Metabolic Panel Urgent
Lactic Acid Urgent
Blood Culture Q30M
JUDE Source: Blood/Venous
Specimen Description:
Influenza A+B Rapid Molecular Urgent
JUDE Source: Nasal Swab
Specimen Description:
01/03/24 15:58
Blood Culture Q30M
JUDE Source: Blood/Venous
Specimen Description:
01/03/24 15:59
Acetaminophen [Tylenol] 650 mg PO NOW STA
CR Chest - 2 Views Urgent
Comment:
Reason For Exam: pna
01/03/24 17:15
NT-proBNP Urgent
01/03/24 18:07
CefTRIAXone [Rocephin] 1,000 mg IV NOW STA
Furosemide [Lasix] 20 mg IV ONCE ONE
01/03/24 19:00
Azithromycin 500 mg/250 ml [Zithromax Infusion] 500 mg in 250 ml IV Q24H
01/03/24 19:40
Admit/Transfer Patient As Directed
Co-Sign Provider:
Level of Care: Inpatient admission
Assign to:: Telemetry
Physician / Group: Sharan
Diagnosis: Pneumonia
Reason for Telemetry: Chest Pain syndromes
Date to Stop Telemetry: 01/05/24
Time to Stop Telemetry: 11:00
Reason for Hospitalization: Pneumonia
Expected length of stay greater than two midnights?: Yes
ELOS- Estimated Length of Stay in days: 3
I certify the patient meets the requirements for IP care: Yes
01/03/24 19:45
Code Status As Directed
Resuscitation Status: Do not resuscitate
Reached after discussion with pt or family/Healthcare POA: Yes
01/03/24 19:49
DNR Bracelet Application ONCE
01/03/24 19:53
EKG [Electrocardiogram (*1)] Urgent
Reason for Study: Chest Pain
Troponin I Urgent
01/05/24 11:00
DC Protocol for Telemetry ONCE
Abnormal Lab Results
01/03/24
15:50
WBC 12.4 H 10^3/uL
(4.8-10.8)
RBC 3.52 L 10^6/uL
(4.20-5.40)
Hgb 9.6 L g/dL
(12.0-16.0)
Hct 29.8 L %
(37.0-47.0)
MCHC 32.2 L g/dL
(33.0-37.0)
RDW 17.3 H %
(11.5-14.5)
Abs Immat Gran (auto) 0.1 H 10^3/uL
(0-0.05)
Absolute Neuts (auto) 10.1 H 10^3/uL
(1.4-6.5)
Immature Gran % 0.6 H %
(0-0.5)
Neutrophils % 81.3 H %
(42.2-75.2)
Lymphocytes % 12.8 L %
(20.5-51.1)
Sodium 132 L mmol/L
(135-145)
BUN 21 H mg/dl
(7-17)
Glucose 118 H mg/dl
(70-99)
Calcium 7.8 L mg/dl
(8.4-10.2)
Total Protein 5.3 L g/dl
(6.3-8.2)
Albumin 2.8 L g/dl
(3.5-5.0)
01/03/24 15:50
01/03/24 15:50
Vital Signs
Initial and Last Documented VS:
Initial Vital Signs
Temp Pulse Resp BP Pulse Ox
101 F H 87 16 128/65 92
01/03/24 15:47 01/03/24 15:47 01/03/24 15:47 01/03/24 15:47 01/03/24 15:47
Last Documented Vital Signs
Temp Pulse Resp BP Pulse Ox
99.9 F 76 26 98/52 93
01/03/24 17:17 01/03/24 19:45 01/03/24 19:45 01/03/24 19:00 01/03/24 19:45
MDM/Problems Addressed
Differential Diagnosis Includes:
Patient is an 88-year-old female currently a DNR with past medical history of dyspepsia, chronic kidney disease, iron deficiency anemia, osteoporosis, chronic lymphocytic leukemia, insomnia, Parkinson's disease, depression, and vitamin B12
deficiency anemia who currently resides at [facility], here today via EMS for a fever and suspected pneumonia. Overall, patient appears well. Vital signs remarkable for a fever to 101 �F and mildly decreased oxygen saturation
of 92% on room air. Will repeat the chest x-ray. Will obtain screening lab and cultures. Will closely monitor and reassess.
01/03/2024 19:21: Screening labs reveal leukocytosis of 12.4. Hemoglobin 9.6. Sodium 132. BUN 21 with a normal creatinine of 0.8. Glucose 118. COVID testing negative. Chest x-ray reveals cardiomegaly with mild interstitial prominence.
Differential includes atypical pneumonia versus CHF. Symptoms/findings consistent with pneumonia. BNP is elevated and given interstitial prominence I am concerned for new onset CHF. Will provide IV diuresis with Lasix and initiate antibiotic
therapy with ceftriaxone and azithromycin. Patient will be admitted to medicine for further testing and evaluation. I also discussed with the patient's family member Андрей Perkins and informed them of the plan. All questions answered.
*Critical Care Note
Total Time (30-74mins, 75-104mins- exclusive of procedures): Not Applicable
ED Attending Note
-
Portions of this chart may have been created with voice recognition software.� Occasional wrong word or��sound alike� substitutions may have occurred due to the inherent limitations of voice recognition software.
Discharge Plan
Departure
Patient Disposition: Admit
Date of Disposition: 01/03/24
Time of Disposition: 19:23
Admit to: Med/Surg
Admit to doctor: Dr. Tsang
Presentation/result/management discussed w/ accepting MD/DO: Hospitalist
Patient with high blood pressure during this ER visit?: No
Condition: Fair
Covid-19: Negative COVID-19
Discharge Problem:
Pneumonia, Fever, Cardiomegaly, Interstitial edema, Elevated brain natriuretic peptide (BNP) level
Prescriptions:
No Action
acetaminophen 325 mg Tablet
650 mg PO Q6HPRN PRN (Reason: mild pain/temp>100)
cyanocobalamin (vitamin B-12) 500 mcg Tablet
500 mcg PO DAILY
benzonatate 100 mg Capsule
100 mg PO Q8HPRN PRN (Reason: cough)
mirtazapine 15 mg Tablet
15 mg PO HS
ferrous sulfate 325 mg (65 mg iron) Tablet,Delayed Release (Dr/Ec)
325 mg PO MOWEFR
gvxfenykc-vdobfcph-izvwjcbjnv 37.5-150-200 mg Tablet
1 tab PO TID
melatonin 5 mg Tablet
5 mg PO HS
multivitamin Tablet
1 tab PO DAILY
pantoprazole 20 mg Tablet,Delayed Release (Dr/Ec)
20 mg PO HS
calcium carbonate [Calcium 500] 500 mg calcium (1,250 mg) Tablet,Chewable
500 mg PO DAILY
gabapentin 100 mg Capsule
100 mg PO TID
loperamide 2 mg Capsule
2 mg PO Q6HPRN PRN (Reason: diarrhea) Qty: 10 0RF
magnesium hydroxide [Milk of Magnesia] 400 mg/5 mL Suspension
30 ml PO HS PRN (Reason: if no bm x 2 days)
bisacodyl [Dulcolax (bisacodyl)] 10 mg Suppository
10 mg NH DAILY PRN (Reason: if no bm x 3 days)
Fleet Enema 19-7 gram/118 mL Enema
118 ml NH DAILY PRN (Reason: if no bm x 4 days)
Referrals:
Alexadner Fernandez MD [Family Provider] -
Interventions
Interventions:
*Risk Screen - Suicide Last Done: 01/03/24 15:54
*General Assessment Last Done: 01/03/24 15:55
*Neglect/Abuse Screening Last Done: 01/03/24 15:54
*ED COVID-19 Vaccine History Last Done: 01/03/24 15:48
ED- Neurological Assessment Last Done: 01/03/24 15:53
ED-Skin Assessment Last Done: 01/03/24 15:53
[2024-01-03 16:01] LABS: % Basophils 0.3 % (0-2); % Eosinophils 0.1 % (0-6); % Immature Granulocytes 0.6 % (0-0.5); % Lymphocytes 12.8 % (20.5-51.1); % Monocytes 4.9 % (1.7-9.3); % Neutrophils 81.3 % (42.2-75.2); Absolute Immature Granulocytes 0.1 10^3/uL (0-0.05); Absolute Lymphocytes 1.6 10^3/uL (1.2-3.4); Absolute Monocytes 0.6 10^3/uL (0.1-0.6); Absolute Neutrophils 10.1 10^3/uL (1.4-6.5); Hematocrit 29.8 % (37.0-47.0); Hemoglobin 9.6 g/dL (12.0-16.0); Mean Corp Hgb Conc. 32.2 g/dL (33.0-37.0); Mean Corpuscular Hgb 27.3 pg (27.0-31.0); Mean Corpuscular Volume 84.7 fL (81.0-99.0); Nucleated Red Blood Cells % 0 %; Platelet Count 285 10^3/uL (130-400); Red Blood Cell Count 3.52 10^6/uL (4.20-5.40); Red Cell Dist. Width 17.3 % (11.5-14.5); White Blood Cell Count 12.4 10^3/uL (4.8-10.8)
[2024-01-03 16:11] LABS: Lactic Acid 1.4 mmol/L (0.7-2.0)
[2024-01-03] MEDS: TYLENOL 650 MG PO ×2 (16:15→22:38)
[2024-01-03 16:18] LABS: ALT (SGPT) < 10 U/L (0-35); AST (SGOT) 23 U/L (14-36); Albumin 2.8 g/dl (3.5-5.0); Alkaline Phosphatase 114 U/L (38-126); Blood Urea Nitrogen 21 mg/dl (7-17); Calcium 7.8 mg/dl (8.4-10.2); Carbon Dioxide 22 mmol/L (22-30); Chloride 105 mmol/L (98-107); Glucose 118 mg/dl (70-99); Potassium 4.6 mmol/L (3.5-5.1); Sodium 132 mmol/L (135-145); Total Bilirubin 0.3 mg/dl (0.2-1.3); Total Protein 5.3 g/dl (6.3-8.2); eGFR > 60.00
[2024-01-03 16:21] LABS: COVID-19 Antigen Negative (Negative)
[2024-01-03 17:57] LABS: NT-proBNP 2620 pg/ml
[2024-01-03] MEDS: ZITHROMAX INFUSION 250 IV (18:41)
[2024-01-03] MEDS: LASIX 20 MG IV (18:41)
[2024-01-03] MEDS: ROCEPHIN 1000 MG IV (18:41)
--- NOTE | 2024-01-03 19:55 | HPS.HSE ---
Family Physician
-
Family Physician: Alexander Fernandez MD
Chief Complaint
-
SOB, Cough
History of Present Illness
Patient is an 88y F with PMH significant for Parkinson's Disease, GERD / PUD and osteoporosis who presents to ED complaining of SOB, cough and chest pain. Patient states that she developed a 'scratchy throat' about 3 days ago. This has since
progressed to cough and SOB. Patient notes that her roommate at the [facility] had similar symptoms. Patient reports cough productive of yellowish mucus. She complains of subjective fever and body aches. She reports central chest pain that occurs with
coughing or deep breathing. Patient had worsening dyspnea this evening and presented to the ED for further evaluation.
Medical History
Past Medical History
Past Medical History: Reports Other
Additional Past Medical History:
Parkinson's Disease
Osteoporosis
GERD / PUD
Past Surgical History: Reports Other
Additional Past Surgical History:
Partial Gastrectomy
Social History
Tobacco: Non-smoker
Alcohol: None
Drug: None
Living: [facility]
Family History
Family History: Not pertinent
Allergies / Home Medications
Allergies reflects when Allergies were last updated in [facility].
Home Medications with original date entered in [facility]
Allergy/Medication List:
Allergies
Allergy/AdvReac Type Severity Reaction Status Date / Time
oxycodone Allergy [per Verified 12/26/23 20:29
Pete
transfer
paperwork
12/24/23]
Home Medications
acetaminophen 325 mg tablet 650 mg PO Q6HPRN PRN mild pain/temp>100 12/24/23
benzonatate 100 mg capsule 100 mg PO Q8HPRN PRN cough 12/24/23
calcium carbonate 500 mg calcium (1,250 mg) chewable tablet (Calcium 500) 500 mg PO DAILY Supplement 12/24/23
carbidopa 37.5 mg-levodopa 150 mg-entacapone 200 mg tablet 1 tab PO TID Autoimmune Disorder 12/24/23
cyanocobalamin (vitamin B-12) 500 mcg tablet 500 mcg PO DAILY Supplement 12/24/23
ferrous sulfate 325 mg (65 mg iron) tablet,delayed release 325 mg PO MOWEFR Supplement 12/24/23
gabapentin 100 mg capsule 100 mg PO TID Neurological Condition 12/24/23
melatonin 5 mg tablet 5 mg PO HS insomnia 12/24/23
mirtazapine 15 mg tablet 15 mg PO HS Mental Health/Anxiety 12/24/23
multivitamin 1 tab PO DAILY Supplement 12/24/23
pantoprazole 20 mg tablet,delayed release 20 mg PO HS Gastrointestinal Issue 12/24/23
loperamide 2 mg capsule 2 mg PO Q6HPRN PRN diarrhea #10 caps 12/27/23
bisacodyl 10 mg rectal suppository (Dulcolax (bisacodyl)) 10 mg OK DAILY PRN if no bm x 3 days 01/03/24
magnesium hydroxide 400 mg/5 mL oral suspension (Milk of Magnesia) 30 ml PO HS PRN if no bm x 2 days 01/03/24
sodium phosphates 19 gram-7 gram/118 mL enema (Fleet Enema) 118 ml OK DAILY PRN if no bm x 4 days 01/03/24
Review of Systems
-
History Source: Patient
A 12 point ROS was completed and negative except as noted: Yes
Constitutional: Reports Fever and Fatigue; Denies Chills
EENT: Reports Sore Throat
Respiratory: Reports Cough and Trouble Breathing
Cardiac: Reports Chest Pain; Denies Diaphoresis, Palpitations or Syncope
Abdomen/GI: Denies Abdominal Pain, Nausea, Vomiting or Diarrhea
: Denies Dysuria or Frequency
Musculoskeletal: Denies Joint Pain or Edema
Neurological: Reports Headache; Denies Dizzy
Psych: Denies Depression or Anxiety
Physical Exam
Vital Signs
Vital Signs
Temp Pulse Resp BP Pulse Ox
99.9 F 76 26 98/52 93
01/03/24 17:17 01/03/24 19:45 01/03/24 19:45 01/03/24 19:00 01/03/24 19:45
Physical Exam
General: Other (88y F in moderate distress due to pain / malaise.)
HEENT: Moist mucous membranes, PERRLA and Other (Pos JVD)
Respiratory: Other (Coarse breath sounds / rhonchi bilaterally. No rales.)
Cardiac: S1/S2 and Regular Rhythm; No Murmur
GI: Soft, Non Tender, Non Distended and Normal Bowel Sounds
Musculoskeletal: No Clubbing, No Cyanosis, No Edema and Other (Varicose veins.)
Neuro: AO x 3
Laboratory Results
-
01/03/24 15:50
01/03/24 15:50
Laboratory Results
Lactic Acid 1.4 mmol/L (0.7-2.0) 01/03/24 15:50
Total Bilirubin 0.3 mg/dl (0.2-1.3) 01/03/24 15:50
AST 23 U/L (14-36) 01/03/24 15:50
ALT < 10 U/L (0-35) 01/03/24 15:50
Alkaline Phosphatase 114 U/L (38-126) 01/03/24 15:50
Impression/Plan
-
A/P: Patient is an 88y F with PMH significant for Parkinson's disease and osteoporosis who presents to ED complaining of cough, chest pain and SOB.
Atypical Pneumonia
Acute Hypoxemic Respiratory Insufficiency secondary to the above
- Admit for further evaluation and treatment.
- Clinical history, exam, etc most c/w atypical pneumonia.
- COVID and influenza negative in the ED.
- Continue IV abx with ceftriaxone / doxycycline.
- Supportive care including mucolytics, nebs, cough suppressants, etc.
- Oxygen support as needed.
- Follow for clinical improvement.
- Patient with no edema appreciated on exam and no prior h/o CHF.
- BP is on the lower side. Echo done this month was essentially normal.
- Hold further diuretics.
Chest Pain
- Suspect this is non-cardiac in origin and related to cough / musculoskeletal pain.
- EKG is without evidence of active ischemia
- Check troponin x 3 sets.
- Monitor on tele overnight.
- Supportive care with NSAIDs for pain as noted above.
- Follow for any new / worsening symptoms.
Parkinson's Disease
- Stable. Continue Sinemet dosing with no changes.
GERD / PUD
- Stable. Continue daily PPI.
Osteoporosis
- Recent sacral insufficiency fractures - patient states she is recovering well.
- With chest pain, consider additional imaging to rule out rib fractures if pain worsens. None evident on today's CXR.
Anemia
- Unknown etiology. Check iron studies, etc.
DVT Prophylaxis: Subcut Heparin
Code Status: DNR
[2024-01-03 20:44] LABS: Troponin I 0.017 ng/ml
--- NOTE | 2024-01-03 20:51 | W.PN.UPDATE ---
Update Note
Progress Note Update
Nursing reporting patient hypotensive 90/47 (58), order placed for NSS 500cc bolus.
[2024-01-03] MEDS: NSS 500 IV (20:54)
[2024-01-03] MEDS: HEPARIN 5000 UNITS SC (22:28)
[2024-01-03] MEDS: PROTONIX 20 MG PO (22:29)
[2024-01-03] MEDS: COMTAN 200 MG PO (22:29)
[2024-01-03] MEDS: NEURONTIN 100 MG PO (22:29)
[2024-01-03] MEDS: REMERON 15 MG PO (22:29)
[2024-01-03] MEDS: SINEMET 25-100 1.5 TABLET PO (22:30)
[2024-01-03] MEDS: VIBRAMYCIN 260 MG IV (22:31)
[2024-01-04] VITALS (9 sets, daily range): BP systolic 97–157; BP diastolic 54–82; PULSE 91; O2SAT 93; BMI 16.2
[2024-01-04 01:36] LABS: Hematocrit 27.8 % (37.0-47.0); Hemoglobin 9.1 g/dL (12.0-16.0); Mean Corp Hgb Conc. 32.7 g/dL (33.0-37.0); Mean Corpuscular Hgb 27.6 pg (27.0-31.0); Mean Corpuscular Volume 84.2 fL (81.0-99.0); Mean Platelet Volume 8.9 fL (7.4-10.4); Platelet Count 270 10^3/uL (130-400); Red Cell Dist. Width 17.2 % (11.5-14.5); White Blood Cell Count 10.7 10^3/uL (4.8-10.8)
[2024-01-04 01:50] LABS: Blood Urea Nitrogen 20 mg/dl (7-17); Calcium 7.5 mg/dl (8.4-10.2); Carbon Dioxide 23 mmol/L (22-30); Chloride 108 mmol/L (98-107); Estimated Creatinine Clearance 35 ml/min; Glucose 98 mg/dl (70-99); Potassium 3.8 mmol/L (3.5-5.1); Sodium 137 mmol/L (135-145); eGFR > 60.00
[2024-01-04 01:53] LABS: Iron < 20 ug/dl (37-170)
[2024-01-04 01:56] LABS: Troponin I 0.016 ng/ml
[2024-01-04 01:58] LABS: Total Iron Binding Capacity 253 ug/dl (265-497)
[2024-01-04 02:26] LABS: Ferritin 53.5 ng/ml (11.1-264.0)
--- NOTE | 2024-01-04 06:41 | PTCARENOTE ---
Patient arrived on unit @2114 via stretcher from ED. Patient AAOx3, transferred from stretcher to bed with assist x3. Patient's skin assessment completed, med rec completed, oriented to unit, call mendoza within reach.
[2024-01-04 07:09] LABS: Troponin I 0.015 ng/ml
--- NOTE | 2024-01-04 07:54 | W.PN.HOSP.TC ---
Today's Communication/Plan
-
Seems to be responding continue present course of antibiotics continue to follow leukocytosis which seems to be resolving
Cepacol lozenges
Try and obtain sputum
PT/OT
Assessment / Plan
Assessment / Plan
Patient is an 88y F with PMH significant for Parkinson's Disease, GERD / PUD and osteoporosis who presents to ED complaining of SOB, cough and chest pain.� Patient states that she developed a 'scratchy throat' about 3 days ago.� This has since
progressed to cough and SOB.� Patient notes that her roommate at the [facility] had similar symptoms.� Patient reports cough productive of yellowish mucus.� She complains of subjective fever and body aches.� She reports central chest pain that occurs with
coughing or deep breathing.� Patient had worsening dyspnea this evening and presented to the ED for further evaluation.
Atypical Pneumonia
Acute Hypoxemic Respiratory Insufficiency secondary to the above
�- Admit for further evaluation and treatment.
�- Clinical history, exam, etc most c/w atypical pneumonia.
�- COVID and influenza negative in the ED.
�- Continue IV abx with ceftriaxone / doxycycline.
�- Supportive care including mucolytics, nebs, cough suppressants, etc.
�- Oxygen support as needed.
�- Follow for clinical improvement.
�- Patient with no edema appreciated on exam and no prior h/o CHF.
�- BP is on the lower side.� Echo done this month was essentially normal.
�- Hold further diuretics.
Chest Pain
�- Suspect this is non-cardiac in origin and related to cough / musculoskeletal pain.
�- EKG is without evidence of active ischemia
�- Check troponin x 3 sets.
�- Monitor on tele overnight.
�- Supportive care with NSAIDs for pain as noted above.
�- Follow for any new / worsening symptoms.
Sore throat/pharyngitis
-No evidence of any strep
-Treat symptomatically with lozenges
Parkinson's Disease
�- Stable.� Continue Sinemet dosing with no changes.
GERD / PUD
�- Stable.� Continue daily PPI.
Osteoporosis
�- Recent sacral insufficiency fractures - patient states she is recovering well.
�- With chest pain, consider additional imaging to rule out rib fractures if pain worsens.� None evident on today's CXR.
Anemia
�- Unknown etiology.� Check iron studies, etc.
DVT Prophylaxis:� Subcut Heparin
Code Status:� DNR
Anticipated Discharge: 24 - 48 hours
Subjective/Interval History
-
Date of Service: January 04, 2024
Complaining of sore throat like yesterday mild production and sputum that she spits into a tissue has not collected. No febrile course overnight since arrival.
Objective Data
-
Labs:
Laboratory Results
01/04/24
01:14
WBC 10.7
Hgb 9.1 L
Hct 27.8 L
Plt Count 270
Sodium 137
Potassium 3.8
Chloride 108 H
Carbon Dioxide 23
BUN 20 H
Creatinine 0.8
Glucose 98
Calcium 7.5 L
Vital Signs:
Vital Signs
Temp Pulse Resp BP Pulse Ox
97.4 F 72 16 122/66 97
01/04/24 02:56 01/04/24 05:31 01/04/24 05:31 01/04/24 02:56 01/04/24 02:56
I&O
01/03/24 01/04/24 01/05/24
06:59 06:59 06:59
Intake Total 460 / 460
Balance 460 / 460
Review of Systems
-
Unable to obtain full review of systems at this time due to: Other (Appears underweight)
History Source: Patient
EENT: Reports Sore Throat (No exudates or pharyngitis noted small node)
Respiratory: Reports Cough
Physical Exam
-
General: Appears Chronically Ill
HEENT: Normocephalic
Respiratory: Clear to Auscultation
Cardiac: Regular Rhythm and S1/S2
GI: Soft
Neuro: Tremors
Psych: Anxious
[2024-01-04] MEDS: NEURONTIN 100 MG PO ×3 (08:10→20:27)
[2024-01-04] MEDS: SINEMET 25-100 1.5 TABLET PO ×3 (08:10→20:28)
[2024-01-04] MEDS: MUCINEX 600 MG PO ×2 (08:10→20:27)
[2024-01-04] MEDS: COMTAN 200 MG PO ×3 (08:10→20:28)
[2024-01-04] MEDS: HEPARIN 5000 UNITS SC ×2 (08:11→20:26)
[2024-01-04] MEDS: VIBRAMYCIN 260 MG IV ×2 (09:33→22:13)
[2024-01-04] MEDS: ANESTHETIC LOZENGE 1 LOZENGE PO ×2 (09:36→17:03)
[2024-01-04] MEDS: TUMS 2 TABLET PO (09:36)
[2024-01-04] MEDS: PHENERGAN WITH CODEINE SYRUP 5 ML PO ×3 (09:43→20:27)
[2024-01-04 10:07] LABS: Procalcitonin 0.08 ng/ml (0.0-0.25)
--- NOTE | 2024-01-04 12:10 | RR ---
A Rapid Response was called on this patient, please see Rapid Response form.
--- NOTE | 2024-01-04 12:10 | PTCARENOTE ---
PCT asked for this nurse to assess, pt was slumped over in chair unresponsive. GASTROENTEROLOGY PHYSICIAN called at 12:10, max assist back to bed. pt became responsive c/o 10/10 CP tachypneic. STAT EKG shows SR with PAC. stat labs drawn, and breathing treatment
administered. pt 98% on 4 L tapered down to 1L eventually, 95%. 1L left on for comfort. CXR obtained. stat tordol administered. pt resting in bed VS documented under flow sheet. CB in reach
[2024-01-04] MEDS: VENTOLIN NEBULES 2.5 MG INH (12:11)
[2024-01-04 12:16] LABS: Glucose - Point of Care 103 mg/dl (70-99)
[2024-01-04] MEDS: TORADOL 15 MG IV (12:46)
[2024-01-04 12:55] LABS: Troponin I < 0.012 ng/ml
[2024-01-04 14:24] LABS: ALT (SGPT) < 10 U/L (0-35); AST (SGOT) 22 U/L (14-36); Albumin 2.9 g/dl (3.5-5.0); Alkaline Phosphatase 119 U/L (38-126); Blood Urea Nitrogen 18 mg/dl (7-17); Calcium 8.1 mg/dl (8.4-10.2); Carbon Dioxide 19 mmol/L (22-30); Chloride 106 mmol/L (98-107); Estimated Creatinine Clearance 33 ml/min; Glucose 116 mg/dl (70-99); Sodium 134 mmol/L (135-145); Total Bilirubin 0.3 mg/dl (0.2-1.3); Total Protein 5.5 g/dl (6.3-8.2); eGFR > 60.00
[2024-01-04] MEDS: ROCEPHIN 1000 MG IV (17:03)
[2024-01-04] MEDS: STERILE WATER FOR INJECTION 10 ML IV (17:03)
[2024-01-04] MEDS: PROTONIX 20 MG PO (20:27)
[2024-01-04] MEDS: REMERON 15 MG PO (20:28)
[2024-01-05 03:00] VITALS: BP 149/83
[2024-01-05] MEDS: TYLENOL 650 MG PO ×2 (03:56→15:13)
[2024-01-05 06:00] VITALS: BMI 16.0
[2024-01-05 06:56] LABS: Hematocrit 28.7 % (37.0-47.0); Hemoglobin 9.3 g/dL (12.0-16.0); Mean Corp Hgb Conc. 32.4 g/dL (33.0-37.0); Mean Corpuscular Hgb 27.2 pg (27.0-31.0); Mean Corpuscular Volume 83.9 fL (81.0-99.0); Platelet Count 277 10^3/uL (130-400); Red Blood Cell Count 3.42 10^6/uL (4.20-5.40); Red Cell Dist. Width 17.4 % (11.5-14.5)
[2024-01-05 07:18] LABS: Blood Urea Nitrogen 17 mg/dl (7-17); Carbon Dioxide 21 mmol/L (22-30); Chloride 107 mmol/L (98-107); Estimated Creatinine Clearance 29 ml/min; Glucose 91 mg/dl (70-99); Potassium 4.2 mmol/L (3.5-5.1); Sodium 134 mmol/L (135-145); eGFR > 60.00
--- NOTE | 2024-01-05 07:59 | W.PN.HOSP.TC ---
Today's Communication/Plan
-
Right lower lobe opacity slightly increased
Chest congestion she has difficulty bringing up and wonder if she does not have aspiration component
Get speech therapy evaluate
Continue present course of antibiotic
Encourage respiratory toilet and incentive spirometry
Chest pain is chest wall reproducible
Assessment / Plan
Assessment / Plan
Patient is an 88y F with PMH significant for Parkinson's Disease, GERD / PUD and osteoporosis who presents to ED complaining of SOB, cough and chest pain.� Patient states that she developed a 'scratchy throat' about 3 days ago.� This has since
progressed to cough and SOB.� Patient notes that [facility]mate at the [facility] had similar symptoms.� Patient reports cough productive of yellowish mucus.� She complains of subjective fever and body aches.� She reports central chest pain that occurs with
coughing or deep breathing.� Patient had worsening dyspnea this evening and presented to the ED for further evaluation.
Atypical Pneumonia
Acute Hypoxemic Respiratory Insufficiency secondary to the above
�- Admit for further evaluation and treatment.
�- Clinical history, exam, etc most c/w atypical pneumonia.
�- COVID and influenza negative in the ED.
�- Continue IV abx with ceftriaxone / doxycycline.
�- Supportive care including mucolytics, nebs, cough suppressants, etc.
�- Oxygen support as needed.
�- Follow for clinical improvement.
�- Patient with no edema appreciated on exam and no prior h/o CHF.
�- BP is on the lower side.� Echo done this month was essentially normal.
�- Hold further diuretics.
Chest Pain/chest wall over sternum reproducible
�- Suspect this is non-cardiac in origin and related to cough / musculoskeletal pain.
�- EKG is without evidence of active ischemia
�- Check troponin x 3 sets. Within normal limits
�- Monitor on tele overnight.
�- Supportive care with NSAIDs for pain as noted above.
�- Follow for any new / worsening symptoms.
Sore throat/pharyngitis
-No evidence of any strep
-Treat symptomatically with lozenges
Parkinson's Disease
�- Stable.� Continue Sinemet dosing with no changes.
-Encourage incentive spirometry
-Wonder given her cough and lack of reproducibility if she is not aspirating we will get speech eval
GERD / PUD
�- Stable.� Continue daily PPI.
Osteoporosis
�- Recent sacral insufficiency fractures - patient states she is recovering well.
�- With chest pain, consider additional imaging to rule out rib fractures if pain worsens.� None evident on today's CXR.
Anemia
�- Unknown etiology.� Check iron studies, etc.
DVT Prophylaxis:� Subcut Heparin
Code Status:� DNR
Anticipated Discharge: 24 - 48 hours
Subjective/Interval History
-
Date of Service: January 05, 2024
Had a rapid response yesterday late morning in relation to low BP and reference of chest pain/to my exam the patient's apparent to the having chest wall pain that is intermittently noted but reproducible she has a congested cough she has difficulty
bringing up because of her Parkinson's but overall feeling better. Try to encourage her to use the incentive spirometer that was not opened at bedside
Objective Data
-
Labs:
Laboratory Results
01/05/24
06:35
WBC 9.0
Hgb 9.3 L
Hct 28.7 L
Plt Count 277
Sodium 134 L
Potassium 4.2
Chloride 107
Carbon Dioxide 21 L
BUN 17
Creatinine 0.9
Glucose 91
Calcium 8.0 L
Vital Signs:
Vital Signs
Temp Pulse Resp BP Pulse Ox
98.9 F 88 16 149/83 97
01/05/24 03:00 01/05/24 03:00 01/05/24 03:00 01/05/24 03:00 01/05/24 03:00
I&O
01/04/24 01/05/24 01/06/24
06:59 06:59 06:59
Intake Total 460 / 460 790 / 790
Output Total 300 / 300
Balance 460 / 460 490 / 490
Review of Systems
-
Unable to obtain full review of systems at this time due to: Dementia
History Source: Patient
Constitutional: Reports Fatigue and Weakness
Respiratory: Reports Cough and Wheezing
Cardiac: Reports Chest Pain
Physical Exam
-
General: Appears Chronically Ill and Cachectic
HEENT: Normocephalic, PERRLA and Neck Non Tender; Negative Pharyngeal Erythema
Respiratory: Rhonchi
Cardiac: Regular Rhythm
GI: Soft and Nontender
Neuro: Awake and Alert
Psych: Anxious
Data Reviewed
-
Total Time Spent with Patient (in minutes): 45
Diagnostic Radiology: Report Reviewed by me (Right lower lobe based opacity consistent with pneumonia)
Labs: Labs Reviewed by me
[2024-01-05 08:11] VITALS: BP 141/72
[2024-01-05] MEDS: MUCINEX 1200 MG PO ×2 (09:16→21:05)
[2024-01-05] MEDS: SINEMET 25-100 1.5 TABLET PO ×3 (09:16→21:06)
[2024-01-05] MEDS: COMTAN 200 MG PO ×3 (09:17→21:06)
[2024-01-05] MEDS: NEURONTIN 100 MG PO ×3 (09:17→21:04)
[2024-01-05] MEDS: HEPARIN 5000 UNITS SC ×2 (09:19→21:05)
[2024-01-05] MEDS: MUCINEX PO (09:26)
[2024-01-05] MEDS: VIBRAMYCIN 260 MG IV ×2 (10:19→22:41)
[2024-01-05 11:10] VITALS: BP 128/74
--- NOTE | 2024-01-05 11:42 | PTOTSP ---
ST Acute Care Evaluation
Pt presents with clinical signs of possible moderate oropharyngeal dysphagia - difficult to differentiate between reflexive, weak coughing from penetration/aspiration events vs baseline, weak cough from current PNA. Nevertheless, to err on the side
of caution, it would be in the patient's best interest to treat these coughing episodes that occur in close proximity to PO intake as possible penetration/aspiration events.
Recommendations:
- NPO except meds in puree
- ARHP - ice sparingly with supervision
- Aspiration precautions & - GERD precautions: keep HOB raised at least 30 degrees at all times; consider PPI; oral care TID.
- Video fluoroscopic swallow study on Sunday.
[2024-01-05] MEDS: PHENERGAN WITH CODEINE SYRUP 5 ML PO ×2 (15:13→21:04)
[2024-01-05 15:49] VITALS: BP 105/71
[2024-01-05] MEDS: ROCEPHIN 1000 MG IV (17:09)
[2024-01-05] MEDS: STERILE WATER FOR INJECTION 10 ML IV (17:09)
[2024-01-05] MEDS: TUMS 2 TABLET PO (20:14)
[2024-01-05] MEDS: PROTONIX 20 MG PO (21:04)
[2024-01-05] MEDS: REMERON 15 MG PO (21:04)
[2024-01-05 23:35] VITALS: BP 139/71
[2024-01-06] MEDS: TYLENOL 650 MG PO (02:18)
[2024-01-06 06:00] VITALS: BMI 17.3
[2024-01-06 07:00] VITALS: BP 148/70
[2024-01-06] MEDS: COMTAN 200 MG PO ×3 (07:22→21:05)
[2024-01-06] MEDS: NEURONTIN 100 MG PO ×3 (07:22→21:06)
[2024-01-06] MEDS: SINEMET 25-100 1.5 TABLET PO ×3 (07:22→21:05)
[2024-01-06] MEDS: MUCINEX 1200 MG PO (07:22)
[2024-01-06] MEDS: HEPARIN 5000 UNITS SC ×2 (07:23→20:57)
--- NOTE | 2024-01-06 07:58 | W.PN.HOSP.TC ---
Addendum entered and electronically signed by Shreyas Reyes MD 01/14/24 14:13:
Hyponatremia resolved
Original Note:
Today's Communication/Plan
-
Continue ceftriaxone and doxycycline for now
Video swallow eval in a.m.
N.p.o. except for meds
Will need continue PT assessment as refused assessment yesterday
Assessment / Plan
Assessment / Plan
Patient is an 88y F with PMH significant for Parkinson's Disease, GERD / PUD and osteoporosis who presents to ED complaining of SOB, cough and chest pain.� Patient states that she developed a 'scratchy throat' about 3 days ago.� This has since
progressed to cough and SOB.� Patient notes that her roommate at the SNF had similar symptoms.� Patient reports cough productive of yellowish mucus.� She complains of subjective fever and body aches.� She reports central chest pain that occurs with
coughing or deep breathing.� Patient had worsening dyspnea this evening and presented to the ED for further evaluation.
Atypical Pneumonia/questionable aspiration pneumonitis
Acute Hypoxemic Respiratory Insufficiency secondary to the above
�- Admit for further evaluation and treatment.
�- Clinical history, exam, etc most c/w atypical pneumonia.
�- COVID and influenza negative in the ED.
�- Continue IV abx with ceftriaxone / doxycycline.
-For video swallow eval in a.m. suspicion ongoing aspiration based on initial ST exam
�- Supportive care including mucolytics, nebs, cough suppressants, etc.
�- Oxygen support as needed.
�- Follow for clinical improvement.
�- Patient with no edema appreciated on exam and no prior h/o CHF.
�- BP is on the lower side.� Echo done this month was essentially normal.
�- Hold further diuretics.
Chest Pain/chest wall over sternum reproducible
�- Suspect this is non-cardiac in origin and related to cough / musculoskeletal pain.
�- EKG is without evidence of active ischemia
�- Check troponin x 3 sets. Within normal limits
�- Monitor on tele overnight.
�- Supportive care with NSAIDs for pain as noted above.
�- Follow for any new / worsening symptoms.
Sore throat/pharyngitis
-No evidence of any strep
-Treat symptomatically with lozenges
Parkinson's Disease
-May have significant autonomic dysfunction leading and contributing to possible aspiration
�- Stable.� Continue Sinemet dosing with no changes.
-Encourage incentive spirometry
-Wonder given her cough and lack of reproducibility if she is not aspirating/for VSC in a.m.
GERD / PUD
�- Stable.� Continue daily PPI.
Osteoporosis
�- Recent sacral insufficiency fractures - patient states she is recovering well.
�- With chest pain, consider additional imaging to rule out rib fractures if pain worsens.� None evident on today's CXR.
Anemia
�- Unknown etiology.� Check iron studies, etc.
DVT Prophylaxis:� Subcut Heparin
Code Status:� DNR
Anticipated Discharge: Within 24 hours
Subjective/Interval History
-
Date of Service: January 06, 2024
States her cough is better and in fact she does sound a little clear when she does cough she has been n.p.o. since about midday yesterday except for meds due to concern for aspiration. She seems to be clearer mentally. States she has had a bit
previous video swallow studies.
Objective Data
-
Vital Signs:
Vital Signs
Temp Pulse Resp BP Pulse Ox
97.8 F 57 17 148/70 95
01/06/24 07:00 01/06/24 07:00 01/06/24 07:00 01/06/24 07:00 01/06/24 07:00
I&O
01/05/24 01/06/24 01/07/24
06:59 06:59 06:59
Intake Total 790 / 790 620 / 620
Output Total 300 / 300
Balance 490 / 490 620 / 620
Review of Systems
-
History Source: Patient
Constitutional: Reports Fatigue and Weakness
Respiratory: Reports Cough
Cardiac: Reports No Symptoms
Abdomen/GI: Reports No Symptoms
Musculoskeletal: Reports No Symptoms
Neuro: Reports No Symptoms
Physical Exam
-
General: No Apparent Distress and Appears Chronically Ill
HEENT: Normocephalic
Respiratory: Rhonchi and Decreased Breath Sounds
Cardiac: Regular Rhythm
GI: Soft, Nontender and Nondistended
Skin: Warm
Neuro: Awake, Alert and Oriented
Psych: Calm
Data Reviewed
-
Total Time Spent with Patient (in minutes): 45
Labs: Labs Reviewed by me
[2024-01-06] MEDS: LR 1000 IV (08:31)
[2024-01-06] MEDS: VIBRAMYCIN 260 MG IV ×2 (09:10→21:06)
--- NOTE | 2024-01-06 10:11 | VATNOTE ---
Unsuccessful x2 attempts to [address] new PIV. Other VAT RN to attempt.
--- NOTE | 2024-01-06 12:58 | CM ---
CM reviewed chart and completed IA from chart review
Pt recently admitted to earlier this month and was discharged to SNF last week
Pt is a [facility] at [facility]
She is independent with use of a WW at baseline
Pt recently discharged to [facility] for ST rehab
Plan for return to SNF on dc
Pt will require [facility] auth
Return SNF referral sent via [facility]
Discharge Disposition- return [facility] SNF pending auth
[2024-01-06 15:00] VITALS: BP 177/77; BP 178/94
[2024-01-06 18:13] VITALS: BP 160/83
[2024-01-06] MEDS: REMERON 15 MG PO (21:05)
[2024-01-06] MEDS: REFRESH EYE DROPS (PF) 1 DROPS OPHTH (21:28)
[2024-01-06] MEDS: PREVACID 15 MG PO (21:28)
[2024-01-06] MEDS: MUCINEX PO (23:11)
[2024-01-06] MEDS: ROBITUSSIN 400 MG PO (23:12)
[2024-01-06 23:30] VITALS: BP 150/81
[2024-01-07] MEDS: LR 1000 IV (03:26)
[2024-01-07] MEDS: ROBITUSSIN 400 MG PO ×6 (03:27→23:10)
[2024-01-07] MEDS: TYLENOL ORAL SOLUTION 650 MG PO (03:27)
[2024-01-07 05:36] LABS: Hematocrit 30.4 % (37.0-47.0); Hemoglobin 9.6 g/dL (12.0-16.0); Mean Corp Hgb Conc. 31.6 g/dL (33.0-37.0); Mean Corpuscular Hgb 27.2 pg (27.0-31.0); Mean Corpuscular Volume 86.1 fL (81.0-99.0); Mean Platelet Volume 9.3 fL (7.4-10.4); Platelet Count 275 10^3/uL (130-400); Red Blood Cell Count 3.53 10^6/uL (4.20-5.40); White Blood Cell Count 4.5 10^3/uL (4.8-10.8)
[2024-01-07 06:00] VITALS: BMI 15.5
[2024-01-07 06:06] LABS: Blood Urea Nitrogen 11 mg/dl (7-17); Calcium 8.3 mg/dl (8.4-10.2); Carbon Dioxide 24 mmol/L (22-30); Chloride 106 mmol/L (98-107); Estimated Creatinine Clearance 40 ml/min; Glucose 90 mg/dl (70-99); Potassium 3.7 mmol/L (3.5-5.1); Sodium 137 mmol/L (135-145); eGFR > 60.00
[2024-01-07 07:34] VITALS: BP 167/89
--- NOTE | 2024-01-07 09:14 | PTOTSP ---
Video Swallow Examination
Patient presents with mild oral/pharyngeal stage of swallowing. Etiology of dysphagia is felt to be due to her Parkinson�s disease. There was silent aspiration with thin liquids via consecutive cup sips � not present with single sips. Please see
patient care note for full details of penetration/aspiration and swallowing physiology.
Recommend:
1. IDDSI Level 6 Soft and Bite Sized, IDDSI Level 0 Thin Liquids - SINGLE SIPS
2. Medications - whole in applesauce
3. Strategies: upright to 90 degrees, small SINGLE sips/bites, slow rate, reflux precautions (upright at least 30 minutes after meals)
4. Oral care 3x daily
5. Dysphagia tx f/u for education/instruction in compensations.
--- NOTE | 2024-01-07 09:23 | PN.CDI ---
CDI
- -
CDI:
Physician Documentation Request
Admit Date: 01/03/24 20:21
Dear Doctor Eric,
Patient admitted for pneumonia.
Laboratory Tests
01/03/24 01/04/24 01/05/24
15:50 13:22 06:35
Sodium 132 L 134 L 134 L
Based on the above, could you clarify in the progress notes, the appropriate diagnosis, if significant, that supports the above abnormalities and additional evaluation, monitoring and/or treatment rendered:
Hyponatremia, resolved
Abnormal lab value insignificant
Other
Use of terms such as suspected, likely, concern for, or probable (associated with a specific diagnosis that is being evaluated, monitored, or treated as if it exists) are acceptable and can be coded in the inpatient setting, when documented at the
time of discharge.
Thank you,
Hillary Krishnan RN, BSN
CDI Specialist
Available via [place] text
Please use your independent medical judgment in providing your response.
[2024-01-07] MEDS: SINEMET 25-100 1.5 TABLET PO ×3 (09:48→20:37)
[2024-01-07] MEDS: COMTAN 200 MG PO ×3 (09:49→20:38)
[2024-01-07] MEDS: NEURONTIN 100 MG PO ×3 (09:49→20:38)
[2024-01-07] MEDS: HEPARIN 5000 UNITS SC ×2 (09:50→20:24)
[2024-01-07] MEDS: VIBRAMYCIN 260 MG IV (10:03)
--- NOTE | 2024-01-07 12:06 | W.PN.HOSP.TC ---
Today's Communication/Plan
-
Monitor vital signs
see plan
Continue with diet recommended by speech therapy
PT/OT
change abx to PO
Hydralazine as needed
Assessment / Plan
Assessment / Plan
Patient is an 88y F with PMH significant for Parkinson's Disease, GERD / PUD and osteoporosis who presents to ED complaining of SOB, cough and chest pain.� Patient states that she developed a 'scratchy throat' about 3 days ago.� This has since
progressed to cough and SOB.� Patient notes that her roommate at the SNF had similar symptoms.� Patient reports cough productive of yellowish mucus.� She complains of subjective fever and body aches.� She reports central chest pain that occurs with
coughing or deep breathing.� Patient had worsening dyspnea this evening and presented to the ED for further evaluation.
Atypical Pneumonia/questionable aspiration pneumonitis
Acute Hypoxemic Respiratory Insufficiency secondary to the above
�- Clinical history, exam, etc most c/w atypical pneumonia.
�- COVID and influenza negative in the ED.
�- Continue IV abx with ceftriaxone / doxycycline.
VSE with silent aspiration with consecutive cup sips, speech recommended soft and bite-size with thin liquids; single sips
�- Supportive care including mucolytics, nebs, cough suppressants, etc.
�- Patient with no edema appreciated on exam and no prior h/o CHF.
�- BP is on the lower side.� Echo done this month was essentially normal.
�- Hold further diuretics.
will treat for 5 days total abx
Chest Pain/chest wall over sternum reproducible
�- Suspect this is non-cardiac in origin and related to cough / musculoskeletal pain.
�- EKG is without evidence of active ischemia
�- troponin x 3 sets. Within normal limits
�- Supportive care with NSAIDs for pain as noted above.
�- Follow for any new / worsening symptoms.
Sore throat/pharyngitis
-No evidence of any strep
-Treat symptomatically with lozenges
Parkinson's Disease
-May have significant autonomic dysfunction leading and contributing to possible aspiration
�- Stable.� Continue Sinemet dosing with no changes.
-Encourage incentive spirometry
mild HTN
no previous hx
start hydralazine prn
GERD / PUD
�- Stable.� Continue daily PPI.
Osteoporosis
�- Recent sacral insufficiency fractures - patient states she is recovering well.
Anemia
�- Unknown etiology.�
DVT Prophylaxis:� Subcut Heparin
Code Status:� DNR
General: No Apparent Distress and Appears Chronically Ill
HEENT: Normocephalic
Respiratory: Rhonchi and Decreased Breath Sounds
Cardiac: Regular Rhythm
GI: Soft, Nontender and Nondistended
Skin: Warm
Neuro: Awake, Alert and Oriented
Psych: Calm
Anticipated Discharge: Within 24 hours
Subjective/Interval History
-
Date of Service: January 07, 2024
denies pain
Objective Data
-
Labs:
Laboratory Results
01/07/24
04:56
WBC 4.5 L
Hgb 9.6 L
Hct 30.4 L
Plt Count 275
Sodium 137
Potassium 3.7
Chloride 106
Carbon Dioxide 24
BUN 11
Creatinine 0.7
Glucose 90
Calcium 8.3 L
Vital Signs:
Vital Signs
Temp Pulse Resp BP Pulse Ox
97.8 F 74 18 167/89 95
01/07/24 07:34 01/07/24 07:34 01/07/24 07:34 01/07/24 07:34 01/07/24 07:34
I&O
01/06/24 01/07/24 01/08/24
06:59 06:59 06:59
Intake Total 620 / 620
Balance 620 / 620
[2024-01-07 15:00] VITALS: BP 177/74
[2024-01-07] MEDS: APRESOLINE 5 MG IV (15:22)
[2024-01-07 15:25] VITALS: BP 151/85; PULSE 92; O2SAT 94
[2024-01-07 15:53] VITALS: BP 151/85; PULSE 92; O2SAT 94
[2024-01-07 16:03] VITALS: BP 124/63
--- NOTE | 2024-01-07 16:14 | PTCARENOTE ---
pt told tech she felt like her heart was racing. this nurse reported to room, pt asked 'is this from the medication you gave me?' PRN hydalazine was administered IVP D/T SBP >160. pt assisted back to bed, does not appear to be in distress. EKG
obtained. hr in 90's SR with PACs. Pt states 'It's because you didn't give me my meds' pt informed she got her AM medications, and is due for 1600 Parkinson medications and gabapentin. Pt appears anxious. 1600 medications administered at 16:10. pt
resting comfortably in bed. denies CP SOB. CB in reach
[2024-01-07] MEDS: OMNICEF 300 MG PO (20:24)
[2024-01-07] MEDS: VIBRAMYCIN 100 MG PO (20:24)
[2024-01-07] MEDS: REMERON 15 MG PO (20:38)
[2024-01-07] MEDS: PREVACID 15 MG PO (20:38)
[2024-01-07 23:00] VITALS: BP 131/72
[2024-01-08] MEDS: PHENERGAN WITH CODEINE SYRUP 5 ML PO ×2 (01:03→20:23)
[2024-01-08] MEDS: ROBITUSSIN 400 MG PO ×6 (04:03→23:29)
[2024-01-08] MEDS: ANESTHETIC LOZENGE 1 LOZENGE PO (04:03)
[2024-01-08 06:01] LABS: % Basophils 0.5 % (0-2); % Eosinophils 2.2 % (0-6); % Immature Granulocytes 0.5 % (0-0.5); % Lymphocytes 44.8 % (20.5-51.1); % Monocytes 8.4 % (1.7-9.3); % Neutrophils 43.6 % (42.2-75.2); Absolute Eosinophils 0.1 10^3/uL (0-0.7); Absolute Lymphocytes 1.7 10^3/uL (1.2-3.4); Absolute Monocytes 0.3 10^3/uL (0.1-0.6); Absolute Neutrophils 1.6 10^3/uL (1.4-6.5); Hematocrit 31.1 % (37.0-47.0); Mean Corp Hgb Conc. 32.2 g/dL (33.0-37.0); Mean Corpuscular Hgb 27.1 pg (27.0-31.0); Mean Corpuscular Volume 84.3 fL (81.0-99.0); Nucleated Red Blood Cells % 0 %; Platelet Count 279 10^3/uL (130-400); Red Blood Cell Count 3.69 10^6/uL (4.20-5.40); Red Cell Dist. Width 16.8 % (11.5-14.5); White Blood Cell Count 3.7 10^3/uL (4.8-10.8)
[2024-01-08 06:32] LABS: Blood Urea Nitrogen 11 mg/dl (7-17); Calcium 8.3 mg/dl (8.4-10.2); Carbon Dioxide 27 mmol/L (22-30); Chloride 107 mmol/L (98-107); Estimated Creatinine Clearance 36 ml/min; Glucose 93 mg/dl (70-99); Potassium 3.7 mmol/L (3.5-5.1); Sodium 137 mmol/L (135-145); eGFR > 60.00
[2024-01-08 07:44] VITALS: BP 160/90
[2024-01-08] MEDS: COMTAN 200 MG PO ×3 (08:00→20:24)
[2024-01-08] MEDS: NEURONTIN 100 MG PO ×3 (08:01→20:23)
[2024-01-08] MEDS: HEPARIN 5000 UNITS SC ×2 (08:01→20:24)
[2024-01-08] MEDS: VIBRAMYCIN 100 MG PO (08:06)
[2024-01-08] MEDS: SINEMET 25-100 1.5 TABLET PO ×3 (08:06→20:24)
[2024-01-08] MEDS: OMNICEF 300 MG PO ×2 (08:06→20:23)
[2024-01-08 09:00] VITALS: BP 131/69
--- NOTE | 2024-01-08 10:00 | PN.CDI ---
CDI
- -
CDI:
Physician Documentation Request
Admit Date: 01/03/24 20:21
Dear Doctor Garland,
Patient admitted for pneumonia.
Laboratory Tests
01/03/24
15:50
WBC 12.4 H
01/03/24
15:47
Temp 101 F H
01/03/24
15:58 01/03/24
17:17 01/03/24
17:30
Resp Rate 24 27 26
Please clarify which of the following most accurately describes the status of the patient's infection:
Sepsis, POA
- Systemic manifestations of infection, with 2 or more SIRS criteria which include:
- Fever >100.4 degrees F or hypothermia < 96.8 degrees F
- Leukocytosis - WBC > 12,000 or leukopenia - WBC < 4,000 or > 10% bands
- Tachycardia > 90 beats per minute
- Tachypnea - RR > 20 breaths per minute or PaCO2 , 32mmHg
Source: Merck Manual 2013
Localized Infection Only, Without Systemic Illness
Other
Use of terms such as suspected, likely, concern for, or probable (associated with a specific diagnosis that is being evaluated, monitored, or treated as if it exists) are acceptable and can be coded in the inpatient setting, when documented at the
time of discharge.
Thank you,
Hillary Krishnan RN, BSN
CDI Specialist
Available via [place] text
Please use your independent medical judgment in providing your response.
--- NOTE | 2024-01-08 10:06 | PN.CDI ---
CDI
- -
CDI:
Physician Documentation Request
Admit Date: 01/03/24 20:21
Dear Doctor Garland,
Patient admitted for pneumonia.
01/06 Cover Remover Assessment: 'With < 75% estimated needs > 1 month and observed muscle and fat wasting pt meets AND/ASPEN criteria for severe protein calorie malnutrition of chronic illness.'
Based on the information, which of the following most accurately represents the patient's nutritional status?
Severe protein calorie malnutrition
Other
Bailey Criteria ([facility] Hospitalist 2017)
2 or more criteria must be present for either
non severe or severe malnutrition
Note that the criteria differs related to the
presence of an acute or chronic illness
Acute Illness Chronic Illness
Energy Intake Non Severe: <75% for >7 days Non Severe: <75% for >1 month
Severe: <50% for >5 days Severe: <75% for >1 month
Weight Loss Non Severe: 1-2% over 1 week Non Severe: 5% over 1 month
5% over 1 month 7.5% over 3 months
7.5% over 3 months 10% over 6 months
1 year N/A 20% over 1 year
Severe: >2% over 1 week Severe: >5% over 1 month
>5% over 1 month >7.5% over 3 months
>7.5% over 3 months >10% over 6 months
1 year N/A >20% over 1 year
Body Fat Non Severe: Mild Decrease Non Severe: Mild Loss
Severe: Moderate Decrease Severe: Severe Loss
Muscle Mass Non Severe: Mild Decrease Non Severe: Mild Loss
Severe: Moderate Decrease Severe: Severe Loss
Fluid Accumulation Non Severe: Mild Accumulation Non Severe: Mild Accumulation
Severe: Moderate to severe Severe: Moderate to severe
accumulation accumulation
Reduced Chef Kitchen Manager Strength Non Severe: N/A Non Severe: N/A
Severe: Measurably reduced Severe: Measurably reduced
Use of terms such as suspected, likely, concern for, or probable (associated with a specific diagnosis that is being evaluated, monitored, or treated as if it exists) are acceptable and can be coded in the inpatient setting, when documented at the
time of discharge.
Thank you,
Hillary Krishnan RN, BSN
CDI Specialist
Available via [place] text
Please use your independent medical judgment in providing your response.
--- NOTE | 2024-01-08 11:01 | W.PN.HOSP.TC ---
Today's Communication/Plan
-
Monitor vital signs and see plan
Continue with diet recommended by speech
Continue with antibiotics
dc planning
Assessment / Plan
Assessment / Plan
Patient is an 88y F with PMH significant for Parkinson's Disease, GERD / PUD and osteoporosis who presents to ED complaining of SOB, cough and chest pain.� Patient states that she developed a 'scratchy throat' about 3 days ago.� This has since
progressed to cough and SOB.� Patient notes that her roommate at the [facility] had similar symptoms.� Patient reports cough productive of yellowish mucus.� She complains of subjective fever and body aches.� She reports central chest pain that occurs with
coughing or deep breathing.� Patient had worsening dyspnea this evening and presented to the ED for further evaluation.
Sepsis suspected 2/2 Atypical Pneumonia/questionable aspiration pneumonitis
Acute Hypoxemic Respiratory Insufficiency secondary to the above
�- Clinical history, exam, etc most c/w atypical pneumonia.
�- COVID and influenza negative in the ED.
�- Continue IV abx with ceftriaxone / doxycycline.
VSE with silent aspiration with consecutive cup sips, speech recommended soft and bite-size with thin liquids; single sips
�- Supportive care including mucolytics, nebs, cough suppressants, etc.
�- Patient with no edema appreciated on exam and no prior h/o CHF.
�- BP is on the lower side.� Echo done this month was essentially normal.
�- Hold further diuretics.
will treat for 5 days total abx
Chest Pain/chest wall over sternum reproducible
resolved
�- Suspect this is non-cardiac in origin and related to cough / musculoskeletal pain.
�- EKG is without evidence of active ischemia
�- troponin x 3 sets. Within normal limits
�- Supportive care with NSAIDs for pain as noted above.
�- Follow for any new / worsening symptoms.
Sore throat/pharyngitis
-No evidence of any strep
-Treat symptomatically with lozenges
Parkinson's Disease
-May have significant autonomic dysfunction leading and contributing to possible aspiration
�- Stable.� Continue Sinemet dosing with no changes.
-Encourage incentive spirometry
mild HTN
no previous hx
start hydralazine prn
GERD / PUD
�- Stable.� Continue daily PPI.
Severe protein calorie malnutrition
Osteoporosis
�- Recent sacral insufficiency fractures - patient states she is recovering well.
Anemia
�- Unknown etiology.�
DVT Prophylaxis:� Subcut Heparin
Code Status:� DNR
General: No Apparent Distress and Appears Chronically Ill
HEENT: Normocephalic
Respiratory: Rhonchi and Decreased Breath Sounds
Cardiac: Regular Rhythm
GI: Soft, Nontender and Nondistended
Skin: Warm
Neuro: Awake, Alert and Oriented
Psych: Calm
Anticipated Discharge: Today
Subjective/Interval History
-
Date of Service: January 08, 2024
Denies pain
Objective Data
-
Labs:
Laboratory Results
01/08/24
05:40
WBC 3.7 L
Hgb 10.0 L
Hct 31.1 L
Plt Count 279
Sodium 137
Potassium 3.7
Chloride 107
Carbon Dioxide 27
BUN 11
Creatinine 0.7
Glucose 93
Calcium 8.3 L
Vital Signs:
Vital Signs
Temp Pulse Resp BP Pulse Ox
99.0 F 80 18 160/90 94
01/08/24 07:44 01/08/24 07:44 01/08/24 07:44 01/08/24 07:44 01/08/24 07:44
I&O
01/07/24 01/08/24 01/09/24
06:59 06:59 06:59
Intake Total 300 / 300
Balance 300 / 300
--- NOTE | 2024-01-08 11:33 | CM ---
Addendum entered by HENRIETTA Eric 01/09/24 09:41:
late-entry note. Received reference# for hopeful authorization from [facility], [id number] on 01/08/24, requested start date 01/09/24.
Addendum entered by HENRIETTA Eric 01/08/24 12:48:
Received text back from Taylor who confirmed bed availability for patient: NPI for facility [id number] attending will be Dr. Alexander Fernandez [phone]
Will initiate authorization.
Original Note:
Received TT from attending that patient is medically stable for discharge. Placed a call to Taylor in admissions at [facility] SN[facility] but had to leave a voice mail message.
Requested return call with confirmation that she can take patient back and NPI numbers for provider and facility.
Will await return call and then initiate auth.
Plan: Case management will continue to follow and assist with discharge planning. Hopeful transfer back to [facility] upon medical clearance.
[2024-01-08 15:25] VITALS: BP 152/91
[2024-01-08] MEDS: REMERON 15 MG PO (20:23)
[2024-01-08] MEDS: PREVACID 15 MG PO (20:24)
[2024-01-09 00:08] VITALS: BP 147/84
[2024-01-09] MEDS: ROBITUSSIN 400 MG PO ×5 (03:39→20:52)
--- NOTE | 2024-01-09 04:02 | DOWNTIME ---
There was a [employer] Client Infectious Waste Technician Downtime on 01/09/2024 from 0100 to 01/09/2024 at 0322. Downtime documentation of patient's care, including medication administrations, has been reconciled in the electronic record per guidelines. Refer to the
patient's paper chart under the miscellaneous tab to see printed paper medication records and downtime forms.
[2024-01-09 05:58] LABS: % Basophils 0.7 % (0-2); % Eosinophils 1.8 % (0-6); % Immature Granulocytes 0.5 % (0-0.5); % Lymphocytes 50.9 % (20.5-51.1); % Monocytes 6.6 % (1.7-9.3); % Neutrophils 39.5 % (42.2-75.2); Absolute Eosinophils 0.1 10^3/uL (0-0.7); Absolute Lymphocytes 2.3 10^3/uL (1.2-3.4); Absolute Monocytes 0.3 10^3/uL (0.1-0.6); Absolute Neutrophils 1.8 10^3/uL (1.4-6.5); Hematocrit 33.3 % (37.0-47.0); Hemoglobin 10.9 g/dL (12.0-16.0); Mean Corp Hgb Conc. 32.7 g/dL (33.0-37.0); Mean Corpuscular Hgb 27.2 pg (27.0-31.0); Nucleated Red Blood Cells % 0 %; Platelet Count 280 10^3/uL (130-400); Red Blood Cell Count 4.01 10^6/uL (4.20-5.40); White Blood Cell Count 4.4 10^3/uL (4.8-10.8)
[2024-01-09 06:00] VITALS: BMI 14.6
[2024-01-09 06:14] LABS: Red Cell Dist. Width 16.5 % (11.5-14.5)
[2024-01-09 07:00] VITALS: BP 138/75
[2024-01-09 07:05] LABS: Blood Urea Nitrogen 10 mg/dl (7-17); Calcium 8.4 mg/dl (8.4-10.2); Carbon Dioxide 26 mmol/L (22-30); Chloride 108 mmol/L (98-107); Estimated Creatinine Clearance 34 ml/min; Glucose 99 mg/dl (70-99); Potassium 3.6 mmol/L (3.5-5.1); Sodium 137 mmol/L (135-145); eGFR > 60.00
[2024-01-09] MEDS: OMNICEF 300 MG PO (08:24)
[2024-01-09] MEDS: NEURONTIN 100 MG PO ×3 (08:24→22:48)
[2024-01-09] MEDS: COMTAN 200 MG PO ×3 (08:25→22:48)
[2024-01-09] MEDS: SINEMET 25-100 1.5 TABLET PO ×3 (08:25→22:50)
[2024-01-09] MEDS: HEPARIN 5000 UNITS SC ×2 (08:25→20:51)
--- NOTE | 2024-01-09 11:07 | W.PN.HOSP.TC ---
Today's Communication/Plan
-
Monitor vital signs see plan
Discharge pending placement
Assessment / Plan
Assessment / Plan
Patient is an 88y F with PMH significant for Parkinson's Disease, GERD / PUD and osteoporosis who presents to ED complaining of SOB, cough and chest pain.� Patient states that she developed a 'scratchy throat' about 3 days ago.� This has since
progressed to cough and SOB.� Patient notes that her roommate at the SNF had similar symptoms.� Patient reports cough productive of yellowish mucus.� She complains of subjective fever and body aches.� She reports central chest pain that occurs with
coughing or deep breathing.� Patient had worsening dyspnea this evening and presented to the ED for further evaluation.
Sepsis suspected 2/2 Atypical Pneumonia/questionable aspiration pneumonitis
Acute Hypoxemic Respiratory Insufficiency secondary to the above
�- Clinical history, exam, etc most c/w atypical pneumonia.
�- COVID and influenza negative in the ED.
�- Continue IV abx with ceftriaxone / doxycycline.
VSE with silent aspiration with consecutive cup sips, speech recommended soft and bite-size with thin liquids; single sips
�- Supportive care including mucolytics, nebs, cough suppressants, etc.
�- Patient with no edema appreciated on exam and no prior h/o CHF.
�- BP is on the lower side.� Echo done this month was essentially normal.
�- Hold further diuretics.
finished abx
Chest Pain/chest wall over sternum reproducible
resolved
�- Suspect this is non-cardiac in origin and related to cough / musculoskeletal pain.
�- EKG is without evidence of active ischemia
�- troponin x 3 sets. Within normal limits
�- Supportive care with NSAIDs for pain as noted above.
�- Follow for any new / worsening symptoms.
Sore throat/pharyngitis
-No evidence of any strep
-Treat symptomatically with lozenges
Parkinson's Disease
-May have significant autonomic dysfunction leading and contributing to possible aspiration
�- Stable.� Continue Sinemet dosing with no changes.
-Encourage incentive spirometry
mild HTN
no previous hx
start hydralazine prn
GERD / PUD
�- Stable.� Continue daily PPI.
Severe protein calorie malnutrition
Osteoporosis
�- Recent sacral insufficiency fractures - patient states she is recovering well.
Anemia
�- Unknown etiology.�
DVT Prophylaxis:� Subcut Heparin
Code Status:� DNR
General: No Apparent Distress and Appears Chronically Ill
HEENT: Normocephalic
Respiratory: Rhonchi and Decreased Breath Sounds
Cardiac: Regular Rhythm
GI: Soft, Nontender and Nondistended
Skin: Warm
Neuro: Awake, Alert and Oriented
Psych: Calm
Anticipated Discharge: Today
Subjective/Interval History
-
Date of Service: January 09, 2024
denies pain
Objective Data
-
Labs:
Laboratory Results
01/09/24
05:38
WBC 4.4 L
Hgb 10.9 L
Hct 33.3 L
Plt Count 280
Sodium 137
Potassium 3.6
Chloride 108 H
Carbon Dioxide 26
BUN 10
Creatinine 0.7
Glucose 99
Calcium 8.4
Vital Signs:
Vital Signs
Temp Pulse Resp BP Pulse Ox
98.0 F 75 17 138/75 93
01/09/24 07:00 01/09/24 07:00 01/09/24 07:00 01/09/24 07:00 01/09/24 07:00
I&O
01/08/24 01/09/24 01/10/24
06:59 06:59 06:59
Intake Total 300 / 300 120 / 120
Output Total 5 / 5
Balance 300 / 300 115 / 115
--- NOTE | 2024-01-09 11:47 | CM ---
Addendum entered by HENRIETTA Eric 01/09/24 16:35:
Placed another call to [facility] and spoke with a outreach representative named, Gabriel who confirmed that he has authorization for patient. 01/08-01/10 NRD fax to [phone].
auth# [id number]
This information was relayed to Taylor in admissions at [facility] who stated that she can take patient in the am as it is late in the day today.
Will update RN and united states marshal in the am that patient has an auth and can transfer.
Original Note:
Placed a call to [facility] to determine where they are in the authorization process. Chief Construction Inspector transferred to a line which stated that all computers are down and to return call.
Plan: Case management will continue to follow and assist with discharge planning. Will call [facility] back if no authorization has been received.
--- NOTE | 2024-01-09 13:34 | PN.CDI ---
CDI
- -
CDI:
Physician Documentation Request
Admit Date: 01/03/24 20:21
Dear Doctor Garland,
Patient admitted for pneumonia.
01/07 Nursing Documentation: 'Stage 1 pressure ulcer bilateral buttocks'
Physician documentation of the type and location of wounds is required for compliant documentation. Based on the above clinical findings and your assessment, please provide the following in your progress note:
1. Location of the ulcer/wound, including laterality.
2. Type (etiology) of ulcer/wound:
- Diabetic ulcer
- Arterial (ischemic) ulcer
- Traumatic wound
- Venous stasis ulcer
- Pressure (decubitus) ulcer
- Non-healing surgical wound
- Other
- Unable to determine
3. For a non-pressure ulcer, please indicate the depth/severity:
- Limited to the breakdown of skin
- With fat layer exposed
- With necrosis of muscle
- With necrosis of bone
- Other
- Unable to determine
4. If a pressure ulcer, please also include the stage* of the ulcer:
- Stage 1 - Skin intact, non-blanchable redness
- Stage 2 - Partial thickness loss of dermis, includes intact or open blister
- Stage 3 - Full thickness tissue not including bone, tendon or muscle
- Stage 4 - Full thickness tissue loss, including exposed bone, tendon or muscle
- Unstageable - Full thickness loss in which the base of the ulcer is covered by slough (yellow, lowe, ferrari, green or brown) and/or eschar (lowe, brown or black) in the wound bed.
- Unable to determine
Use of terms such as suspected, likely, concern for, or probable (associated with a specific diagnosis that is being evaluated, monitored, or treated as if it exists) are acceptable and can be coded in the inpatient setting, when documented at the
time of discharge.
Thank you,
Hillary Krishnan RN, BSN
CDI Specialist
Available via [place] text
Please use your independent medical judgment in providing your response.
*Source: National Pressure Ulcer Advisory Panel (NPUAP)
[2024-01-09 15:00] VITALS: BP 136/75; PULSE 94; O2SAT 95
[2024-01-09 15:30] VITALS: BP 146/89
[2024-01-09 15:52] VITALS: BP 136/75; PULSE 92; O2SAT 95
[2024-01-09] MEDS: TYLENOL ORAL SOLUTION 650 MG PO (16:24)
[2024-01-09] MEDS: PREVACID 15 MG PO (22:48)
[2024-01-09] MEDS: REMERON 15 MG PO (22:51)
[2024-01-09 23:16] VITALS: BP 151/93
[2024-01-09] MEDS: ROBITUSSIN PO (23:38)
[2024-01-10 04:21] LABS: % Eosinophils 1.8 % (0-6); % Immature Granulocytes 0.2 % (0-0.5); % Lymphocytes 51.7 % (20.5-51.1); % Monocytes 6.2 % (1.7-9.3); % Neutrophils 39.1 % (42.2-75.2); Absolute Basophils 0.1 10^3/uL (0-0.2); Absolute Eosinophils 0.1 10^3/uL (0-0.7); Absolute Lymphocytes 2.6 10^3/uL (1.2-3.4); Absolute Monocytes 0.3 10^3/uL (0.1-0.6); Hematocrit 29.9 % (37.0-47.0); Hemoglobin 9.8 g/dL (12.0-16.0); Mean Corp Hgb Conc. 32.8 g/dL (33.0-37.0); Mean Corpuscular Volume 82.4 fL (81.0-99.0); Mean Platelet Volume 9.4 fL (7.4-10.4); Nucleated Red Blood Cells % 0 %; Platelet Count 264 10^3/uL (130-400); Red Blood Cell Count 3.63 10^6/uL (4.20-5.40); Red Cell Dist. Width 16.5 % (11.5-14.5)
[2024-01-10 04:37] LABS: Blood Urea Nitrogen 13 mg/dl (7-17); Calcium 8.2 mg/dl (8.4-10.2); Carbon Dioxide 24 mmol/L (22-30); Chloride 109 mmol/L (98-107); Estimated Creatinine Clearance 34 ml/min; Glucose 93 mg/dl (70-99); Potassium 3.2 mmol/L (3.5-5.1); Sodium 135 mmol/L (135-145); eGFR > 60.00
[2024-01-10] MEDS: ROBITUSSIN PO (04:44)
[2024-01-10 05:02] VITALS: BMI 14.6
[2024-01-10 07:00] VITALS: BP 156/83
[2024-01-10] MEDS: SINEMET 25-100 1.5 TABLET PO (09:08)
[2024-01-10] MEDS: ROBITUSSIN 400 MG PO ×2 (09:08→12:08)
[2024-01-10] MEDS: COMTAN 200 MG PO (09:09)
[2024-01-10] MEDS: HEPARIN 5000 UNITS SC (09:09)
[2024-01-10] MEDS: NEURONTIN 100 MG PO (09:09)
[2024-01-10] MEDS: KCL ELIXIR 40 MEQ PO (09:16)
--- NOTE | 2024-01-10 10:40 | W.PN.HOSP.TC ---
Today's Communication/Plan
-
Monitor vital signs see plan
Discharge today
Replete potassium
Time of discharge 37 minutes
Assessment / Plan
Assessment / Plan
Patient is an 88y F with PMH significant for Parkinson's Disease, GERD / PUD and osteoporosis who presents to ED complaining of SOB, cough and chest pain.� Patient states that she developed a 'scratchy throat' about 3 days ago.� This has since
progressed to cough and SOB.� Patient notes that her roommate at the SNF had similar symptoms.� Patient reports cough productive of yellowish mucus.� She complains of subjective fever and body aches.� She reports central chest pain that occurs with
coughing or deep breathing.� Patient had worsening dyspnea this evening and presented to the ED for further evaluation.
Sepsis suspected 2/2 Atypical Pneumonia/questionable aspiration pneumonitis
Acute Hypoxemic Respiratory Insufficiency secondary to the above
�- Clinical history, exam, etc most c/w atypical pneumonia.
�- COVID and influenza negative in the ED.
�- Continue IV abx with ceftriaxone / doxycycline.
VSE with silent aspiration with consecutive cup sips, speech recommended soft and bite-size with thin liquids; single sips
�- Supportive care including mucolytics, nebs, cough suppressants, etc.
�- Patient with no edema appreciated on exam and no prior h/o CHF.
�- BP is on the lower side.� Echo done this month was essentially normal.
�- Hold further diuretics.
finished abx
Chest Pain/chest wall over sternum reproducible
resolved
�- Suspect this is non-cardiac in origin and related to cough / musculoskeletal pain.
�- EKG is without evidence of active ischemia
�- troponin x 3 sets. Within normal limits
�- Supportive care with NSAIDs for pain as noted above.
�- Follow for any new / worsening symptoms.
Hypokalemia
Replete
Sore throat/pharyngitis
-No evidence of any strep
-Treat symptomatically with lozenges
Parkinson's Disease
-May have significant autonomic dysfunction leading and contributing to possible aspiration
�- Stable.� Continue Sinemet dosing with no changes.
-Encourage incentive spirometry
mild HTN
no previous hx
start hydralazine prn
GERD / PUD
�- Stable.� Continue daily PPI.
Severe protein calorie malnutrition
Stage 1 pressure ulcer bilateral buttocks
Osteoporosis
�- Recent sacral insufficiency fractures - patient states she is recovering well.
Anemia
�- Unknown etiology.�
DVT Prophylaxis:� Subcut Heparin
Code Status:� DNR
General: No Apparent Distress and Appears Chronically Ill
HEENT: Normocephalic
Respiratory: Rhonchi and Decreased Breath Sounds
Cardiac: Regular Rhythm
GI: Soft, Nontender and Nondistended
Skin: Warm
Neuro: Awake, Alert and Oriented
Psych: Calm
Anticipated Discharge: Today
Subjective/Interval History
-
Date of Service: January 10, 2024
denies pain
Objective Data
-
Labs:
Laboratory Results
01/10/24
04:08
WBC 5.0
Hgb 9.8 L
Hct 29.9 L
Plt Count 264
Sodium 135
Potassium 3.2 L
Chloride 109 H
Carbon Dioxide 24
BUN 13
Creatinine 0.7
Glucose 93
Calcium 8.2 L
Vital Signs:
Vital Signs
Temp Pulse Resp BP Pulse Ox
97.6 F 77 16 156/83 92
01/10/24 07:00 01/10/24 07:00 01/10/24 07:00 01/10/24 07:00 01/10/24 07:00
I&O
01/09/24 01/10/24 01/11/24
06:59 06:59 06:59
Intake Total 120 / 120 480 / 480
Output Total 5 / 5
Balance 115 / 115 480 / 480
--- NOTE | 2024-01-10 10:44 | W.DCSUMMARY ---
Discharge Summary
Discharge Data
Date of Admission: 01/03/24
Date of Discharge: 01/10/24
-
Pending Results: No
Hospital Course
88-year-old female with past medical history of Parkinson's disease, GERD, PUD, osteoporosis came to the hospital with shortness of breath, cough and chest pain. Patient symptoms were likely thought was secondary to sepsis secondary to pneumonia.
There was also concern of patient having aspiration pneumonitis. Patient was seen by speech therapy and had a video swallow study which showed silent aspiration with consecutive sips. Patient was then put on soft and bite-size with thin liquids
per speech recommendation. On this hospitalization patient blood pressure was also low and. For her chest pain it was determined it was likely due to cough which over time improved. Patient was also evaluated by physical therapy who recommended
SNF. Patient was treated for her pneumonia and finished a course prior to the discharge. Once patient symptoms improved, she was then discharged to SNF with instructions to follow-up with all her physicians outpatient.
Discharge Plan
-
Patient Disposition: Assisted/SNF
Discharge Diagnosis/Procedures: Acute hypoxic respiratory insufficiency
Atypical pneumonia
Breast pain
Parkinson's disease
Suspect silent aspiration
Hypokalemia
Additional Diets: Soft and bite-size
Activity: As tolerated
Driving Restrictions: Not until seen by your Dr
Bathing Restrictions: None
Referrals:
Alexander Fernandez MD [Family Provider] - in less than 1 week
Prescriptions:
New
Chloraseptic Sore Throat 6-10 mg Lozenge
1 michele PO Q4HPRN PRN (Reason: sore throat) Qty: 18 0RF
Refresh Classic (PF) 1.4-0.6 % Dropperette
1 drops ophthalmic (eye) QIDPRN PRN (Reason: eye dryness) Qty: 0 0RF
calcium carbonate [Antacid (calcium carbonate)] 200 mg calcium (500 mg) Tablet,Chewable
200 mg PO Q4HPRN PRN (Reason: gastritis) Qty: 1 0RF
Continued
acetaminophen 325 mg Tablet
650 mg PO Q6HPRN PRN (Reason: mild pain/temp>100)
cyanocobalamin (vitamin B-12) 500 mcg Tablet
500 mcg PO DAILY
benzonatate 100 mg Capsule
100 mg PO Q8HPRN PRN (Reason: cough)
mirtazapine 15 mg Tablet
15 mg PO HS
ferrous sulfate 325 mg (65 mg iron) Tablet,Delayed Release (Dr/Ec)
325 mg PO MOWEFR
xbffdhivp-lcczyizm-tuxhribxis 37.5-150-200 mg Tablet
1 tab PO TID
melatonin 5 mg Tablet
5 mg PO HS
multivitamin Tablet
1 tab PO DAILY
pantoprazole 20 mg Tablet,Delayed Release (Dr/Ec)
20 mg PO HS
calcium carbonate [Calcium 500] 500 mg calcium (1,250 mg) Tablet,Chewable
500 mg PO DAILY
gabapentin 100 mg Capsule
100 mg PO TID
loperamide 2 mg Capsule
2 mg PO Q6HPRN PRN (Reason: diarrhea) Qty: 10 0RF
magnesium hydroxide [Milk of Magnesia] 400 mg/5 mL Suspension
30 ml PO HS PRN (Reason: if no bm x 2 days)
bisacodyl [Dulcolax (bisacodyl)] 10 mg Suppository
10 mg MO DAILY PRN (Reason: if no bm x 3 days)
Fleet Enema 19-7 gram/118 mL Enema
118 ml MO DAILY PRN (Reason: if no bm x 4 days)
Discharge Orders:
Discharge Patient (As Directed); Ordered 01/10/24
Ordered By: Scotty Haque
Discharge Date and Time
Discharge Date/Time: 01/10/24 13:32
Print Language: GREEK
--- NOTE | 2024-01-10 11:18 | CM ---
TT the attending who stated that patient is still medically cleared for discharge. Transfer sheet and medical necessity completed and provided to [employer] community resource officer. #for report and fax in previous CM note. Imm will be provided to patient.
Plan: Case management will continue to follow and assist with discharge planning. Transfer to [facility].
[2024-01-10 13:35] VITALS: BP 154/79
== END 2024-01-10 13:32 | DRG 871 ==
LOC: 3 WEST ACU 20:21
PROVIDERS: Emergency Medicine; Internal Medicine; Physician Assistant; ADMITTING PHYSICIAN Hospitalist; ATTENDING PHYSICIAN Internal Medicine; EMERGENCY PHYSICIAN Emergency Medicine; FAMILY PHYSICIAN Family Medicine
DX: A41.9 Sepsis, unspecified organism (principal); E43 Unspecified severe protein-calorie malnutrition; J69.0 Pneumonitis due to inhalation of food and vomit; Z68.1 Body mass index [BMI] 19.9 or less, adult; E87.1 Hypo-osmolality and hyponatremia; L89.301 Pressure ulcer of unspecified buttock, stage 1; G20.A1 Parkinson's disease without dyskinesia, without mention of fluctuations; E87.6 Hypokalemia; M81.0 Age-related osteoporosis without current pathological fracture; D64.9 Anemia, unspecified; Z66 Do not resuscitate
CPT/HCPCS: 71045; 71046; 74230; 80048; 80053; 82728; 82962; 83540; 83550; 83605; 83880; 84145; 84484; 85025; 85027; 87040; 87070; 87205; 87502; 87811; 92526; 92610; 92611; 93005; 94640; 96374; 96375; 97116; 97163; 97166; 97530; 97535; 99285

== ENCOUNTER → 2024-01-14 12:02 | Outpatient (REF) | payer MEDICARE, SELFPAY ==
[2024-01-14 13:00] LABS: Hematocrit 31.5 % (37.0-47.0); Mean Corp Hgb Conc. 31.7 g/dL (33.0-37.0); Mean Corpuscular Hgb 27.2 pg (27.0-31.0); Mean Corpuscular Volume 85.8 fL (81.0-99.0); Platelet Count 286 10^3/uL (130-400); Red Blood Cell Count 3.67 10^6/uL (4.20-5.40); White Blood Cell Count 5.4 10^3/uL (4.8-10.8)
[2024-01-14 13:38] LABS: ALT (SGPT) < 10 U/L (0-35); AST (SGOT) 19 U/L (14-36); Albumin 2.9 g/dl (3.5-5.0); Alkaline Phosphatase 123 U/L (38-126); Blood Urea Nitrogen 18 mg/dl (7-17); Calcium 8.7 mg/dl (8.4-10.2); Carbon Dioxide 25 mmol/L (22-30); Chloride 107 mmol/L (98-107); Glucose 85 mg/dl (70-99); Potassium 4.5 mmol/L (3.5-5.1); Sodium 136 mmol/L (135-145); Total Bilirubin 0.5 mg/dl (0.2-1.3); Total Protein 5.4 g/dl (6.3-8.2); eGFR > 60.00
== END ==
LOC: OLABWHC 12:02
PROVIDERS: ATTENDING PHYSICIAN Family Medicine
DX: N18.9 Chronic kidney disease, unspecified (principal); J18.9 Pneumonia, unspecified organism
CPT/HCPCS: 36415; 80053; 85027

== ENCOUNTER → 2024-01-16 10:33 | Outpatient (REF) | payer OTHER, MEDICARE, SELFPAY ==
[2024-01-16 11:29] LABS: Hematocrit 33.7 % (37.0-47.0); Hemoglobin 10.8 g/dL (12.0-16.0); Mean Corpuscular Hgb 27.2 pg (27.0-31.0); Mean Corpuscular Volume 84.9 fL (81.0-99.0); Mean Platelet Volume 9.9 fL (7.4-10.4); Platelet Count 328 10^3/uL (130-400); Red Blood Cell Count 3.97 10^6/uL (4.20-5.40); Red Cell Dist. Width 17.2 % (11.5-14.5); White Blood Cell Count 7.9 10^3/uL (4.8-10.8)
[2024-01-16 12:05] LABS: Blood Urea Nitrogen 17 mg/dl (7-17); Calcium 8.7 mg/dl (8.4-10.2); Carbon Dioxide 24 mmol/L (22-30); Chloride 110 mmol/L (98-107); Glucose 87 mg/dl (70-99); Potassium 4.3 mmol/L (3.5-5.1); Sodium 136 mmol/L (135-145); eGFR > 60.00
== END ==
LOC: OLABWHC 10:33
PROVIDERS: ATTENDING PHYSICIAN Family Medicine
DX: J18.9 Pneumonia, unspecified organism (principal); E87.6 Hypokalemia; A41.9 Sepsis, unspecified organism
CPT/HCPCS: 36415; 80048; 85027

== ENCOUNTER 2024-01-31 13:07 | Emergency (ER) | payer MEDICARE, SELFPAY ==
[2024-01-31 13:07] VITALS: BMI 17.0
[2024-01-31 13:28] VITALS: BP 172/88
--- NOTE | 2024-01-31 15:01 | ED.GENMED ---
History of Present Illness
General
Chief Complaint: Head Injury
Source: patient
Exam Limitations: none
Time Seen by Provider: 01/31/24 13:46
Nursing documentation reviewed up to this point in time: agreed with
Travel History
Have you had any contact with someone who has COVID-19?: No
Do you have any symptoms of coronavirus? Fever > 100 degrees, chills, cough, shortness of breath, sore throat, loss of taste or smell, muscle aches, or headache?: No
History of Present Illness
History of Present Illness:
The patient is an 88-year-old female who reports that she got up out of a chair after eating lunch, tripped and fell onto her head. Patient denies headache, vision changes, nausea and vomiting. She denies loss of consciousness. She reports she
has been feeling well. Patient presents with a laceration of her right frontal forehead area. She denies neck pain, back pain, chest pain and abdominal pain. Patient has no complaints. She reports she is not on blood thinners. Patient denies
any dizziness prior to the fall. Patient denies cough or any difficulty urinating.
Past History
Past History
ED Past Medical History: CHF, GERD and Other (Parkinson's dementia)
ED Past Surgical History: Cholecystectomy and Gynecological
Social History
Tobacco: Non-smoker
Alcohol: None
Drug: None
Personal: Other
Living: [facility]
Employment: Other
Family History
Family History: Other
Review of Systems
Review of Systems
Allergies reviewed?: Yes
Other source history: transfer record
All Other Systems: ROS reviewed and negative except as documented in HPI and ROS
Constitutional: Reports no symptoms
EENT: Reports no symptoms
Respiratory: Reports no symptoms
Cardiac: Reports no symptoms
ABD/GI: Reports no symptoms
: Reports no symptoms
Musculoskeletal: Reports no symptoms
Skin: Reports other
Neurological: Reports no symptoms
Endocrine: Reports no symptoms
Hematologic/Lymphatic: Reports no symptoms
Psychiatric: Reports no symptoms
Phy Exam
Physical Exam
Physical Exam:
Physical Exam
General: no apparent distress, not acutely ill, contusion with overlying laceration of the right frontal scalp
Neck: supple. Nontender
Heart: s1/s2 regular rate and rhythm,
Lungs: no acute respiratory distress. clear bilaterally. No vertebral spine tenderness
Abdomen: Soft, nontender
Neuro: alert and oriented. no focal neurological deficits. 5 out of 5 strength in all extremities. Cranial nerves equal and symmetric bilaterally
Skin: 1 cm superficial laceration of right frontal scalp
Psychiatric: well kept. interactive and cooperative
Extremities: no edema. no calf tenderness. Full range of movement of upper and lower extremities without discomfort. Pelvis and hips nontender. No areas of deformity or swelling
Course
Orders/Labs/Results
Orders:
Orders
01/31/24 14:30
CT Head W/o Iv Contrast Urgent
Comment:
Reason For Exam: head injury
Vital Signs
Initial and Last Documented VS:
Initial Vital Signs
Temp Pulse Resp BP Pulse Ox
98.1 F 84 16 172/88 95
01/31/24 13:28 01/31/24 13:28 01/31/24 13:28 01/31/24 13:28 01/31/24 13:28
Last Documented Vital Signs
Temp Pulse Resp BP Pulse Ox
98.1 F 84 16 172/88 95
01/31/24 13:28 01/31/24 13:28 01/31/24 13:28 01/31/24 13:28 01/31/24 13:28
Procedures
Laceration Closure
Right Head:
Status of Wound: clean
Description of Wound Edges: surrounded by abrasion
Preparation: cleaned with saline
Anesthesia: 1% Lidocaine with epi
Revision/Debridement: irrigate-direct pressure
Wound exploration: explored to base- no FB
Type of Closure: single layer closure
Skin Closure Material: 5-0 nylon
Number of sutures: 2
Additional information:
Area of laceration was right frontal scalp
MDM/Problems Addressed
Differential Diagnosis Includes:
Closed head injury, intracranial hemorrhage, cervical spine fracture
MDM/Problems Addressed:
Patient presents with acute scalp contusion and laceration after a trip and fall
Acute Exacerbation and/or Progression of Chronic Illness:
Patient is acutely hypertensive, however, there is no sign of heart failure, confusion, encephalopathy or neurological deficits.
Acute Exacerbation and/or Progression of Chronic Illness: HTN
*Radiology
Radiology exam reviewed: radiology read reviewed
*Pulse Oximetry
Patient hypoxic: no
*EKG
Interpreted by ED Provider?: NA
*Fish Filleter Interpretation
Rate: Fish Filleter- N/A
*Critical Care Note
Total Time (30-74mins, 75-104mins- exclusive of procedures): Not Applicable
Data Reviewed
Review of Other/Old Records Reveals: Discharge Summary (Discharge summary reviewed from hospitalist from December 2023 when patient was admitted for an atypical pneumonia and acute respiratory failure)
Source: patient
Patient Management
Social determinants of health affecting care: Living situation
Escalation/DeEscalation of care consider admission/obs:
Patient remains very well and comfortable appearing. She has been fully awake, smiling and conversational. She has no complaints. She denies neck pain and has no tenderness of her C-spine. She reports that she has been feeling well, ate a good
lunch, and has no complaints. Therefore, I do not feel we need to do emergent blood work. Patient reports she specifically tripped and it appears to be mechanical fall. Patient has had no dizziness, chest pain or palpitations to suggest cardiac
etiology for fall.
ED Attending Note
-
Portions of this chart may have been created with voice recognition software.� Occasional wrong word or��sound alike� substitutions may have occurred due to the inherent limitations of voice recognition software.
Discharge Plan
Departure
Patient Disposition: Home (Routine Discharge)
Date of Disposition: 01/31/24
Time of Disposition: 15:28
Patient with high blood pressure during this ER visit?: Yes
Condition: Good
Covid-19: Not Applicable
Discharge Problem:
Closed head injury, Laceration of scalp, Contusion of scalp
Instructions: Head Injury in Adults (DC), Laceration Repair With Stitches (DC), BLOOD PRESSURE
Prescriptions:
No Action
acetaminophen 325 mg Tablet
650 mg PO Q6HPRN PRN (Reason: mild pain/temp>100)
cyanocobalamin (vitamin B-12) 500 mcg Tablet
500 mcg PO DAILY
benzonatate 100 mg Capsule
100 mg PO Q8HPRN PRN (Reason: cough)
mirtazapine 15 mg Tablet
15 mg PO HS
ferrous sulfate 325 mg (65 mg iron) Tablet,Delayed Release (Dr/Ec)
325 mg PO MOWEFR
sqjtjzqfc-ucofjici-gmtbnzxlcq 37.5-150-200 mg Tablet
1 tab PO TID
melatonin 5 mg Tablet
5 mg PO HS
multivitamin Tablet
1 tab PO DAILY
pantoprazole 20 mg Tablet,Delayed Release (Dr/Ec)
20 mg PO HS
calcium carbonate [Calcium 500] 500 mg calcium (1,250 mg) Tablet,Chewable
500 mg PO DAILY
gabapentin 100 mg Capsule
100 mg PO TID
loperamide 2 mg Capsule
2 mg PO Q6HPRN PRN (Reason: diarrhea) Qty: 10 0RF
magnesium hydroxide [Milk of Magnesia] 400 mg/5 mL Suspension
30 ml PO HS PRN (Reason: if no bm x 2 days)
bisacodyl [Dulcolax (bisacodyl)] 10 mg Suppository
10 mg ID DAILY PRN (Reason: if no bm x 3 days)
Fleet Enema 19-7 gram/118 mL Enema
118 ml ID DAILY PRN (Reason: if no bm x 4 days)
Chloraseptic Sore Throat 6-10 mg Lozenge
1 michele PO Q4HPRN PRN (Reason: sore throat) Qty: 18 0RF
Refresh Classic (PF) 1.4-0.6 % Dropperette
1 drops ophthalmic (eye) QIDPRN PRN (Reason: eye dryness) Qty: 0 0RF
calcium carbonate [Antacid (calcium carbonate)] 200 mg calcium (500 mg) Tablet,Chewable
200 mg PO Q4HPRN PRN (Reason: gastritis) Qty: 1 0RF
Referrals:
UNKNOWN - PT DOES,NOT KNOW [Family Provider] -
Activity Restrictions/Additional Instructions:
Give 650 mg Tylenol every 4 hours as needed for pain. Please return with any vomiting, dizziness, fever or difficulty breathing. Patient has 2 sutures in her laceration which will need to be removed in about 7 days by her doctor. Please also have
her doctor reevaluate her high blood pressure.
Interventions
Interventions:
*Risk Screen - Suicide Last Done: 01/31/24 13:54
*General Assessment Last Done: 01/31/24 13:54
*Neglect/Abuse Screening Last Done: 01/31/24 13:28
ED- Fall Risk Assessment Last Done: 01/31/24 13:54
*ED COVID-19 Vaccine History Last Done: 01/31/24 13:28
ED- Neurological Assessment Last Done: 01/31/24 13:54
ED-Skin Assessment Last Done: 01/31/24 13:54
Discharge Date and Time
Print Language: JAPANESE
[2024-01-31 17:04] VITALS: BP 102/63
== END 2024-01-31 18:25 | disposition home or self-care (01) ==
LOC: EMR 13:07
PROVIDERS: EMERGENCY PHYSICIAN Emergency Medicine
DX: S01.01XA Laceration without foreign body of scalp, initial encounter (principal); W01.0XXA Fall on same level from slipping, tripping and stumbling without subsequent striking against object, initial encounter; I10 Essential (primary) hypertension
CPT/HCPCS: 99284; 12001; 70450

== ENCOUNTER 2024-03-04 05:27 | Inpatient (IN) | payer MEDICARE, SELFPAY ==
[2024-03-03 23:39] VITALS: BP 138/108; BMI 17.9
[2024-03-03 23:48] VITALS: BP 118/94
[2024-03-03] MEDS: MORPHINE SULFATE 4 MG IV (23:55)
--- NOTE | 2024-03-03 23:57 | ED.MUSCINJ ---
HPI-Injury
General
Chief Complaint: Musculo-Skeletal Complaint
Source: patient and ambulance crew
Exam Limitations: none
Time Seen by Provider: 03/03/24 23:48
Nursing documentation reviewed up to this point in time: agreed with
Travel History
Have you had any contact with someone who has COVID-19?: No
Do you have any symptoms of coronavirus? Fever > 100 degrees, chills, cough, shortness of breath, sore throat, loss of taste or smell, muscle aches, or headache?: No
History of Present Illness-Injury
Is this injury a work related problem?: No
Is pt an associate of [facility]?: No
Initial Injury comments:
88-year-old female status post trip and fall at her facility with left hip pain denies head strike, was given fentanyl 60 mcg by EMS now feeling better apparently fell a few days ago has bruising on the right side of her chest did not seek medical
attention at that time takes no blood thinners no headache, no shortness of breath,
Past History
Past History
ED Past Medical History: CHF, GERD and Other (Parkinson's dementia)
ED Past Surgical History: Cholecystectomy and Gynecological
Social History
Tobacco: Non-smoker
Alcohol: None
Drug: None
Living: detention
Employment: Other
Family History
Family History: Other
Review of Systems
Review of Systems
Other source history: ambulance crew
All Other Systems: Not applicable
Constitutional: Denies fever
EENT: Reports no symptoms
Respiratory: Reports no symptoms
Cardiac: Reports no symptoms
ABD/GI: Reports no symptoms
Musculoskeletal: Reports joint pain
Neurological: Reports no symptoms
Endocrine: Reports no symptoms
Phy Exam
Physical Exam
Physical Exam:
Physical Exam
General: Frail elderly female cooperative looks uncomfortable
Neck: no tongue bite
Lungs: no acute respiratory distress. clear bilaterally old bruising on the right anterior chest
Abdomen: Soft nontender
Neuro: alert and oriented. no focal neurological deficits
Skin: no rash
Psychiatric: well kept. interactive and cooperative
Extremities: Shortened rotated left hip
Injury Course
Orders/Labs/Results
Orders:
Orders
03/03/24 23:48
Type+Screen Urgent
Cardiac Monitoring- Treatment ONCE
Complete Blood Count/With Diff Urgent
Comprehensive Metabolic Panel Urgent
03/03/24 23:49
Electrocardiogram (*1) Urgent
Reason for Study: Other
Other Reason for Exam: trauma
EKG- Treatment ONCE
03/03/24 23:50
PTT Urgent
Prothrombin Time Urgent
03/03/24 23:51
Morphine Sulfate 4 mg IV NOW STA
03/04/24 00:00
CR Chest Single View Urgent
Reason For Exam: fall
CR Hip - LT w/wo Pel 2-3 Vw* Urgent
Reason For Exam: fall
Include a pelvis x-ray?: Yes
03/04/24 00:29
HYDROmorphone [Dilaudid] 0.5 mg IV NOW STA
03/04/24 01:15
CT Cervical Spine W/o Iv Contr Urgent
Reason For Exam: fall
CT Head W/o Iv Contrast Urgent
Reason For Exam: fall
03/04/24 02:11
Sling Right-Treatment ONCE
Abnormal Lab Results
03/04/24
00:01
RBC 3.24 L 10^6/uL
(4.20-5.40)
Hgb 9.3 L g/dL
(12.0-16.0)
Hct 28.3 L %
(37.0-47.0)
MCHC 32.9 L g/dL
(33.0-37.0)
RDW 17.7 H %
(11.5-14.5)
Chloride 110 H mmol/L
(98-107)
Glucose 125 H mg/dl
(70-99)
Alkaline Phosphatase 134 H U/L
(38-126)
Total Protein 5.5 L g/dl
(6.3-8.2)
Albumin 3.1 L g/dl
(3.5-5.0)
03/04/24 00:01
03/04/24 00:01
Procedures
Splint Check
Splint checked by provider?: Yes
Circulation/Movement/Sensation post splint application: brisk cap refill
Splinting/Sling Placement
Sling to the right clavicle:
Procedure completed by: rn
Pre-splint extermity exam: neurovascular intact
Splint material: other
Splint checked by provider?: Yes
Type of sling: sling fitted
MDM/Problems Addressed
Differential Diagnosis Includes:
Hip fracture femur fracture pelvic fracture in the setting of a fall today also fall few days ago check CT head cervical spine chest x-ray hip and pelvis films
MDM/Problems Addressed:
Hip pain
Chronic conditions affecting care: Neurological disorder
Acute Exacerbation and/or Progression of Chronic Illness: Neurological disorder
*Radiology
Radiology exam reviewed: preliminary read by ED provider
*Pulse Oximetry
Patient hypoxic: no
*EKG
Interpretation: abnormal
Comparison EKG: no comparison EKG present
Heart Rate: 78
Rate: normal
Rhythm: sinus
Ischemia: non-specific ST changes
*Negotiations Director Interpretation
Rate: normal
Interpretation: normal
Heart Rate: 87
Rhythm: sinus
*Critical Care Note
Total Time (30-74mins, 75-104mins- exclusive of procedures): Not Applicable
Update Note
Update Note:
Update looks like a hip fracture patient reports noted for head and cervical spine does have a clavicle fracture chest x-ray noted? Pneumothorax will try to get read from radiology as if she does have pneumothorax and hip fracture would likely need
to be transferred to a trauma center as both would be traumatic if she does not have a pneumo can probably be kept here
Reviewed with radiology on-call no pneumothorax seen
ED Attending Note
-
Portions of this chart may have been created with voice recognition software.� Occasional wrong word or��sound alike� substitutions may have occurred due to the inherent limitations of voice recognition software.
Discharge Plan
Departure
Patient Disposition: Admit
Date of Disposition: 03/04/24
Time of Disposition: 02:12
Admit to: Med/Surg
Presentation/result/management discussed w/ accepting MD/DO: Hospitalist
Patient with high blood pressure during this ER visit?: No
Condition: Fair
Discharge Problem:
Closed hip fracture
Prescriptions:
No Action
acetaminophen 325 mg Tablet
650 mg PO Q6HPRN PRN (Reason: mild pain/temp>100)
cyanocobalamin (vitamin B-12) 500 mcg Tablet
500 mcg PO DAILY
benzonatate 100 mg Capsule
100 mg PO Q8HPRN PRN (Reason: cough)
mirtazapine 15 mg Tablet
15 mg PO HS
ferrous sulfate 325 mg (65 mg iron) Tablet,Delayed Release (Dr/Ec)
325 mg PO MOWEFR
xezchuouo-yflgrked-ejolwpxwdb 37.5-150-200 mg Tablet
1 tab PO TID
melatonin 5 mg Tablet
5 mg PO HS
multivitamin Tablet
1 tab PO DAILY
pantoprazole 20 mg Tablet,Delayed Release (Dr/Ec)
20 mg PO HS
calcium carbonate [Calcium 500] 500 mg calcium (1,250 mg) Tablet,Chewable
500 mg PO DAILY
gabapentin 100 mg Capsule
100 mg PO TID
loperamide 2 mg Capsule
2 mg PO Q6HPRN PRN (Reason: diarrhea) Qty: 10 0RF
magnesium hydroxide [Milk of Magnesia] 400 mg/5 mL Suspension
30 ml PO HS PRN (Reason: if no bm x 2 days)
bisacodyl [Dulcolax (bisacodyl)] 10 mg Suppository
10 mg PA DAILY PRN (Reason: if no bm x 3 days)
Fleet Enema 19-7 gram/118 mL Enema
118 ml PA DAILY PRN (Reason: if no bm x 4 days)
Chloraseptic Sore Throat 6-10 mg Lozenge
1 michele PO Q4HPRN PRN (Reason: sore throat) Qty: 18 0RF
Refresh Classic (PF) 1.4-0.6 % Dropperette
1 drops ophthalmic (eye) QIDPRN PRN (Reason: eye dryness) Qty: 0 0RF
calcium carbonate [Antacid (calcium carbonate)] 200 mg calcium (500 mg) Tablet,Chewable
200 mg PO Q4HPRN PRN (Reason: gastritis) Qty: 1 0RF
Referrals:
UNKNOWN - PT DOES,NOT KNOW [Family Provider] -
Interventions
Interventions:
*Risk Screen - Suicide Last Done: 03/03/24 23:39
*General Assessment Last Done: 03/03/24 23:39
*Neglect/Abuse Screening Last Done: 03/03/24 23:39
ED- Fall Risk Assessment Last Done: 03/03/24 23:39
*ED COVID-19 Vaccine History Last Done: 03/03/24 23:39
ED-Musculoskeletal Assessment Last Done: 03/03/24 23:48
ED- Neurological Assessment Last Done: 03/03/24 23:48
ED-Skin Assessment Last Done: 03/03/24 23:48
Discharge Date and Time
Print Language: LAO
[2024-03-04] VITALS (22 sets, daily range): BP systolic 99–178; BP diastolic 53–91; BMI 16.9
[2024-03-04 00:16] LABS: % Eosinophils 5.2 % (0-6); % Immature Granulocytes 0.4 % (0-0.5); % Lymphocytes 32.6 % (20.5-51.1); % Monocytes 5.4 % (1.7-9.3); % Neutrophils 55.4 % (42.2-75.2); Absolute Basophils 0.1 10^3/uL (0-0.2); Absolute Eosinophils 0.4 10^3/uL (0-0.7); Absolute Lymphocytes 2.3 10^3/uL (1.2-3.4); Absolute Monocytes 0.4 10^3/uL (0.1-0.6); Absolute Neutrophils 3.8 10^3/uL (1.4-6.5); Hematocrit 28.3 % (37.0-47.0); Hemoglobin 9.3 g/dL (12.0-16.0); Mean Corp Hgb Conc. 32.9 g/dL (33.0-37.0); Mean Corpuscular Hgb 28.7 pg (27.0-31.0); Mean Corpuscular Volume 87.3 fL (81.0-99.0); Mean Platelet Volume 8.9 fL (7.4-10.4); Nucleated Red Blood Cells % 0 %; Platelet Count 247 10^3/uL (130-400); Red Blood Cell Count 3.24 10^6/uL (4.20-5.40); Red Cell Dist. Width 17.7 % (11.5-14.5); White Blood Cell Count 6.9 10^3/uL (4.8-10.8)
[2024-03-04 00:20] LABS: ALT (SGPT) < 10 U/L (0-35); AST (SGOT) 22 U/L (14-36); Albumin 3.1 g/dl (3.5-5.0); Alkaline Phosphatase 134 U/L (38-126); Blood Urea Nitrogen 17 mg/dl (7-17); Calcium 8.5 mg/dl (8.4-10.2); Carbon Dioxide 24 mmol/L (22-30); Chloride 110 mmol/L (98-107); Estimated Creatinine Clearance 30 ml/min; Glucose 125 mg/dl (70-99); Potassium 4.4 mmol/L (3.5-5.1); Sodium 136 mmol/L (135-145); Total Bilirubin 0.5 mg/dl (0.2-1.3); Total Protein 5.5 g/dl (6.3-8.2); eGFR > 60.00
[2024-03-04 00:26] LABS: APTT 27.8 Sec (23.4-35.0); INR 0.97; PT 12.7 Sec (11.4-14.6)
[2024-03-04] MEDS: DILAUDID 0.5 MG IV ×4 (00:37→20:27)
--- NOTE | 2024-03-04 05:13 | HPS.HSE ---
Family Physician
-
Family Physician: NOT KNOW UNKNOWN - PT DOES
Chief Complaint
-
Left Hip Pain / Fall
History of Present Illness
Patient is an 88y F with PMH significant for Parkinson's Disease, GERD / PUD and osteoporosis who presents to ED complaining of left hip pain s/p fall today. Patient has had several recent falls of late. Today she lost her balance and fell
landing on her buttocks. Patient complained of pain in the L hip and was sent to the ED for further evaluation. She denies striking her head and denies any LOC / syncope.
Patient has a sling on the RUE secondary to clavicle fracture that she suffered 2 days ago. She refused hospital / ED evaluation at that time.
She was seen here last month for fall with head injury. Work-up at that time was unremarkable.
Medical History
Past Medical History
Past Medical History: Reports Other
Additional Past Medical History:
Parkinson's Disease
Osteoporosis
GERD / PUD
Past Surgical History: Reports Other
Additional Past Surgical History:
Partial Gastrectomy
Right Hip ORIF
Social History
Tobacco: Non-smoker
Alcohol: None
Drug: None
Living: [facility]
Family History
Family History: Not pertinent
Allergies / Home Medications
Allergies reflects when Allergies were last updated in [email or web address].
Home Medications with original date entered in [email or web address]
Allergy/Medication List:
Allergies
Allergy/AdvReac Type Severity Reaction Status Date / Time
oxycodone Allergy [per Verified 03/03/24 23:39
Pete
transfer
paperwork
12/24/23]
Home Medications
acetaminophen 325 mg tablet 650 mg PO Q6HPRN PRN mild pain/temp>100 12/24/23
benzonatate 100 mg capsule 100 mg PO Q8HPRN PRN cough 12/24/23
calcium carbonate (Calcium 500) 500 mg PO DAILY Supplement 12/24/23
carbidopa 37.5 mg-levodopa 150 mg-entacapone 200 mg tablet 1 tab PO TID Autoimmune Disorder 12/24/23
cyanocobalamin (vitamin B-12) 500 mcg tablet 500 mcg PO DAILY Supplement 12/24/23
ferrous sulfate 325 mg (65 mg iron) tablet,delayed release 325 mg PO MOWEFR Supplement 12/24/23
gabapentin 100 mg capsule 300 mg PO TID Neurological Condition 12/24/23
melatonin 5 mg tablet 5 mg PO HS insomnia 12/24/23
mirtazapine 15 mg tablet 15 mg PO HS Mental Health/Anxiety 12/24/23
multivitamin 1 tab PO DAILY Supplement 12/24/23
pantoprazole 20 mg tablet,delayed release 20 mg PO HS Gastrointestinal Issue 12/24/23
loperamide 2 mg capsule 2 mg PO Q6HPRN PRN diarrhea #10 caps 12/27/23
benzocaine 6 mg-menthol 10 mg lozenges (Chloraseptic Sore Throat) 1 michele PO Q4HPRN PRN sore throat #18 ea 01/07/24
calcium carbonate (Antacid (calcium carbonate)) 200 mg PO Q4HPRN PRN gastritis #1 tab 01/07/24
polyvinyl alcohol-povidone (PF) 1.4 %-0.6 % eye drops in a dropperette (Refresh Classic (PF)) 1 drops ophthalmic (eye) QIDPRN PRN eye dryness #0 ea 01/07/24
guaifenesin 600 mg tablet, extended release 12 hr (Mucinex) 600 mg PO BID 03/04/24
ondansetron HCl 4 mg tablet 4 mg PO Q8H PRN Nausea 03/04/24
Review of Systems
-
History Source: Patient
A 12 point ROS was completed and negative except as noted: Yes
Constitutional: Reports Fatigue; Denies Fever or Chills
Respiratory: Denies Cough or Trouble Breathing
Cardiac: Denies Chest Pain or Palpitations
Abdomen/GI: Denies Abdominal Pain, Nausea, Vomiting or Diarrhea
: Denies Dysuria or Frequency
Musculoskeletal: Reports Joint Pain; Denies Edema
Neurological: Denies Dizzy or Headache
Psych: Reports Depression; Denies Anxiety
Physical Exam
Vital Signs
Vital Signs
Temp Pulse Resp BP Pulse Ox
98 F 77 22 114/61 95
03/03/24 23:39 03/04/24 04:15 03/04/24 04:15 03/04/24 04:00 03/03/24 23:39
Physical Exam
General: Other (Frail 88y F in mild distress due to pain.)
HEENT: Moist mucous membranes and PERRLA
Respiratory: Clear and Other (Decreased at bases - otherwise clear.)
Cardiac: S1/S2 and Regular Rhythm; No Murmur
GI: Soft, Non Tender, Non Distended and Normal Bowel Sounds
Musculoskeletal: No Clubbing, No Cyanosis and Other (LLE shortened and externally rotated. RUE in sling)
Neuro: AO x 3
Laboratory Results
-
03/04/24 00:01
03/04/24 00:01
Laboratory Results
PT 12.7 Sec (11.4-14.6) 03/04/24 00:01
INR 0.97 03/04/24 00:01
APTT 27.8 Sec (23.4-35.0) 03/04/24 00:01
Total Bilirubin 0.5 mg/dl (0.2-1.3) 03/04/24 00:01
AST 22 U/L (14-36) 03/04/24 00:01
ALT < 10 U/L (0-35) 03/04/24 00:01
Alkaline Phosphatase 134 U/L (38-126) H 03/04/24 00:01
Impression/Plan
-
A/P: Patient is an 88y F with PMH significant for Parkinson's disease, GERD and osteoporosis who presents to ED complaining of L hip pain s/p fall.
Left Femur Fracture
- Admit for further evaluation and treatment.
- Bedrest, pain control, supportive care.
- Ortho consulted for operative repair.
- Patient with no personal history of CT, CVA, etc.
- No prior issues with surgery / anesthesia.
- EK done today in the ED is unremarkable.
- Mild anemia (see below).
- Patient is at increased risk for complications related to surgery / anesthesia based primarily on her age.
- Benefits of planned procedures outweigh the potential risks and patient is OK to proceed to the OR without additional pre-op evaluation(s).
- Post-op PT / OT evals, pain control, DVT prophylaxis, etc.
Right Midclavicular Fracture
- s/p fall of a few days ago.
- Maintain sling / immobilizer.
- Ortho evaluation, but suspect non-operative repair.
Parkinson's Disease
- Significant increased frequency of falls with multiple injuries of late.
- Continue current med regimen without changes.
- PT / OT evaluations.
- Combination of clavicle and hip fractures will make rehabilitation process challenging.
Chronic Iron Deficiency Anemia
- Hgb = 9.3 with recent baseline around 10.
- Begin IV iron replacement for now.
- Follow H&H perioperatively and transfuse PRCs if needed.
GERD
- Stable. Continue PPI.
DVT Prophylaxis: SCDs
Code Status: DNR
[2024-03-04 05:55] LABS: Hematocrit 28.5 % (37.0-47.0); Mean Corp Hgb Conc. 31.6 g/dL (33.0-37.0); Mean Corpuscular Hgb 28.4 pg (27.0-31.0); Mean Corpuscular Volume 89.9 fL (81.0-99.0); Mean Platelet Volume 8.9 fL (7.4-10.4); Platelet Count 257 10^3/uL (130-400); Red Blood Cell Count 3.17 10^6/uL (4.20-5.40); Red Cell Dist. Width 17.7 % (11.5-14.5); White Blood Cell Count 8.4 10^3/uL (4.8-10.8)
[2024-03-04 06:30] LABS: Blood Urea Nitrogen 16 mg/dl (7-17); Calcium 8.2 mg/dl (8.4-10.2); Carbon Dioxide 26 mmol/L (22-30); Chloride 110 mmol/L (98-107); Estimated Creatinine Clearance 32 ml/min; Glucose 103 mg/dl (70-99); Iron < 20 ug/dl (37-170); Potassium 4.4 mmol/L (3.5-5.1); Sodium 139 mmol/L (135-145); eGFR > 60.00
--- NOTE | 2024-03-04 06:36 | PTCARENOTE ---
Patient arrived from the emergency department. Patient NPO and wiped with CHG wipes. Patient sheets and gown changed. Vital signs assessed. call mendoza within reach.
[2024-03-04 06:39] LABS: Total Iron Binding Capacity 317 ug/dl (265-497)
--- NOTE | 2024-03-04 08:12 | W.PN.UPDATE ---
Update Note
Progress Note Update
Full H&P to follow:
88yo female admitted to [facility] following a fall yesterday onto her left side. Xrays reveal a left intertrochanteric hip fracture. Focused exam of LLE reveals left leg shortened and externally rotated. +Log roll. +Tenderness generally
about the hip. Able to plantar and dorsiflex the ankle. NVI distally. Plan is for OR around noon today for left hip gamma nail under the direction of Dr. Rogers. Remain NPO. Consent obtained and placed on chart. Ancef supervisor stone to OR. Type and screen
completed. Bedrest until postop. Continue with pain management as needed. Attempted to call son, Jesus (contact listed in chart), to provide update per patient's request however he did not answer.
[2024-03-04] MEDS: SINEMET 25-100 1.5 TABLET PO ×3 (09:09→20:26)
[2024-03-04] MEDS: NEURONTIN 300 MG PO ×3 (09:09→20:35)
[2024-03-04] MEDS: COMTAN 200 MG PO ×3 (09:16→20:27)
--- NOTE | 2024-03-04 09:24 | W.PN.UPDATE ---
Update Note
Progress Note Update
Non-billable addendum
Patient admitted 5 AM
denies pain if not moving
reports she 'hates the sling' wants to remove it if possible
Assessment:
Left intertrochanteric hip fracture from fall (Traumatic) with underlying osteoporosis (pathological)
- Bedrest, pain control, supportive care.
- Ortho consulted for operative repair planned today (left hip gamma nail)
- Patient with no personal history of [place], CVA, etc.
- No prior issues with surgery / anesthesia.
- EKG in the ED is unremarkable.
- Mild anemia (see below).
- Patient is at increased risk for complications related to surgery / anesthesia based primarily on her age.
- Benefits of planned procedures outweigh the potential risks and patient is OK to proceed to the OR without additional pre-op evaluation(s).
Right Midclavicular Fracture
- s/p fall of a few days ago.
- Maintain sling/immobilizer.
- Ortho evaluation, but suspect non-operative repair.
Parkinson's Disease
- Significant increased frequency of falls with multiple injuries of late.
- Continue current med regimen without changes.
- PT / OT evaluations post-op
- Combination of clavicle and hip fractures will make rehabilitation process challenging. Will need SNF most certainly.
Chronic Iron Deficiency Anemia
- Hgb = 9.3 with recent baseline around 10.
- Begin IV iron replacement for now.
- Follow H&H perioperatively and transfuse PRCs if needed.
GERD
- Stable. Continue PPI.
Recent hospitalization 2 months prior for atypical PNA - finished Abx
Severe protein calorie malnutrition by history
Osteoporosis
�- Recent sacral insufficiency fractures - patient states she is recovering well.
DVT Prophylaxis: SCDs
Code Status: DNR
--- NOTE | 2024-03-04 09:26 | CON.ORTHO ---
Consultation
-
Date/Time Consultation Requested: 03/04/24
Date/Time Consultation Performed: 03/04/24 @7:45am
Requesting Provider: Sharan
Performing Provider: Jasmin Romano PA-C for Zaki Boo MD/Sergio Rogers MD
Reason for Consultation: left hip fracture
Consultation - Orthopedics
History
HPI: 88yo female admitted to [facility] for left hip pain. She states that she was doing her laundry and fell onto her left side. She was unable to get up following the fall. She states that she lives at [facility] and called
for help. She was then transported to [facility] for further evaluation. Xrays obtained reveal a left trochanteric hip fracture. She also reports that she had a fall about a week ago where she sustained a right clavicle fracture. She refused
medical treatment after that fall. She is currently in a sling. She is right hand dominant. She denies taking any blood thinners.
PAST MEDICAL HISTORY: CHF, GERD, Parkinson's
PAST SURGICAL HISTORY: cholecystectomy, gynecologic, right hip gamma nail
SOCIAL HISTORY: Lives at [facility], denies tobacco and alcohol
FAMILY HISTORY: Non contributory
REVIEW OF SYSTEMS:12 point review of systems obtained and negative except those mentioned in the HPI
Allergies / Home Medications
Allergy/AdvReac Type Severity Reaction Status Date / Time
oxycodone Allergy [per Verified 03/03/24 23:39
[place]
transfer
paperwork
12/24/23]
�Medication �Instructions �Recorded
acetaminophen 325 mg tablet 650 mg PO Q6HPRN PRN mild 12/24/23
pain/temp>100
benzonatate 100 mg capsule 100 mg PO Q8HPRN PRN cough 12/24/23
calcium carbonate (Calcium 500) 500 mg PO DAILY Supplement 12/24/23
carbidopa 37.5 mg-levodopa 150 1 tab PO TID Autoimmune Disorder 12/24/23
mg-entacapone 200 mg tablet
cyanocobalamin (vitamin B-12) 500 500 mcg PO DAILY Supplement 12/24/23
mcg tablet
ferrous sulfate 325 mg (65 mg 325 mg PO MOWEFR Supplement 12/24/23
iron) tablet,delayed release
gabapentin 100 mg capsule 300 mg PO TID Neurological 12/24/23
Condition
melatonin 5 mg tablet 5 mg PO HS insomnia 12/24/23
mirtazapine 15 mg tablet 15 mg PO HS Mental Health/Anxiety 12/24/23
multivitamin 1 tab PO DAILY Supplement 12/24/23
pantoprazole 20 mg tablet,delayed 20 mg PO HS Gastrointestinal Issue 12/24/23
release
loperamide 2 mg capsule 2 mg PO Q6HPRN PRN diarrhea #10 12/27/23
caps
benzocaine 6 mg-menthol 10 mg 1 michele PO Q4HPRN PRN sore throat 01/07/24
lozenges (Chloraseptic Sore Throat) #18 ea
calcium carbonate (Antacid 200 mg PO Q4HPRN PRN gastritis #1 01/07/24
(calcium carbonate)) tab
polyvinyl alcohol-povidone (PF) 1 drops ophthalmic (eye) QIDPRN 01/07/24
1.4 %-0.6 % eye drops in a PRN eye dryness #0 ea
dropperette (Refresh Classic (PF))
guaifenesin 600 mg tablet, 600 mg PO BID 03/04/24
extended release 12 hr (Mucinex)
ondansetron HCl 4 mg tablet 4 mg PO Q8H PRN Nausea 03/04/24
Vital Signs / Lab Results
Temp Pulse Resp BP Pulse Ox
99 F 81 18 145/72 96
03/04/24 07:52 03/04/24 07:52 03/04/24 07:52 03/04/24 07:52 03/04/24 07:52
03/04/24 05:43
03/04/24 05:43
RADIOGRAPHIC FINDINGS:
Xrays left hip reveal intertrochanteric femur fracture
PHYSICAL EXAM:
General: AAOx3 (able to tell me location, year, and President). well developed female
HEENT: NCAT, sclera anicteric, normal hearing
Heart: No JVD
Lungs: Normal work of breathing on room air
MSK: Left lower extremity shorted and externally rotated. +Log roll. +tenderness generally about the left hip. Able to plantarflex/dorsiflex the ankle. NVI distally. Right upper extremity in sling. Very mildly tender to palpation over the clavicle.
ROM decreased. NVI distally
Assessment / Plan
ASSESSMENT: 88yo female admitted to [facility] following a fall resulting in left hip fracture. She also sustained a right clavicle fracture from a previous fall
PLAN:
Left intertrochanteric hip fracture
- Plan for OR around noon today for left hip gamma nail under the direction of Dr. Rogers
- Bedrest until postop
- Remain NPO
- Ancef development professional to OR
- Consent obtained and placed on chart
- Type and screen completed
- Continue with pain management as needed
Right clavicle fracture
- Will obtain dedicated right clavicle xrays today
- Sling to right upper extremity
- Non weight bearing to right arm for now
[2024-03-04] MEDS: TYLENOL 1000 MG PO ×3 (09:31→22:48)
--- NOTE | 2024-03-04 12:45 | W.IMMPOSTOP ---
Surgical Immed Post Op Note
-
Primary Surgeon: Sue
Pre-op Diagnosis: Left hip intertrochanteric fracture
Post-op Diagnosis: Same
Procedure Performed: Left hip Gamma nail fixation
Anesthesia Type: General
Specimen / Cultures: None
Estimated Blood Loss: 10cc
Complications: None
Operative Findings: Dictated [id number]
Plan:
- WBAT LLE
- NWB RUE due to clavicle fracture. Sling for comfort
- ASA 325 daily for 30 days for DVT prophylaxis if not contraindicated
- PT/ OT
[2024-03-04] MEDS: FERRLECIT 110 MG IV (14:39)
--- NOTE | 2024-03-04 16:14 | SUR.PHASEI ---
waiting for bed to be assigned. patient awake and restful, PO fluids given. Pharmacy ([facility] called to send 1600 PO meds. patients son called, message left. Cora Case RN BSN.
[2024-03-04] MEDS: ASPIRIN 325 MG PO (18:05)
[2024-03-04] MEDS: TORADOL 10 MG IV (18:05)
--- NOTE | 2024-03-04 18:17 | PTCARENOTE ---
Pt arrived to 2S in bed. Full assessment completed. RUE maintained in sling. LLE with decreased movement, neurovascular assessment intact. L hip aquacels x3 C/D/I. Pt noted with tremors. PRN torodol provided for c/o moderate L hip pain. Bed locked
and in the lowest position, safety maintained. Oriented to room and call kelly, son at beside.
[2024-03-04] MEDS: REMERON 15 MG PO (20:26)
[2024-03-04] MEDS: SENOKOT 17.1999999999999993 MG PO (20:26)
[2024-03-04] MEDS: PROTONIX 20 MG PO (20:26)
[2024-03-04] MEDS: ANCEF 5 IV (20:27)
[2024-03-05] VITALS (12 sets, daily range): BP systolic 79–136; BP diastolic 47–71; PULSE 84; O2SAT 94; BMI 18.4
[2024-03-05] MEDS: ANCEF 5 IV (04:18)
[2024-03-05 05:09] LABS: Hematocrit 23.1 % (37.0-47.0); Hemoglobin 7.5 g/dL (12.0-16.0); Mean Corp Hgb Conc. 32.5 g/dL (33.0-37.0); Mean Corpuscular Volume 89.2 fL (81.0-99.0); Mean Platelet Volume 9.3 fL (7.4-10.4); Platelet Count 194 10^3/uL (130-400); Red Blood Cell Count 2.59 10^6/uL (4.20-5.40); Red Cell Dist. Width 17.4 % (11.5-14.5); White Blood Cell Count 8.3 10^3/uL (4.8-10.8)
[2024-03-05 05:37] LABS: Blood Urea Nitrogen 18 mg/dl (7-17); Calcium 7.4 mg/dl (8.4-10.2); Carbon Dioxide 23 mmol/L (22-30); Chloride 109 mmol/L (98-107); Estimated Creatinine Clearance 37 ml/min; Glucose 118 mg/dl (70-99); Potassium 4.6 mmol/L (3.5-5.1); Sodium 134 mmol/L (135-145); eGFR > 60.00
[2024-03-05] MEDS: TYLENOL 1000 MG PO ×3 (08:10→21:02)
[2024-03-05] MEDS: ASPIRIN 325 MG PO (08:10)
[2024-03-05] MEDS: SINEMET 25-100 1.5 TABLET PO ×3 (08:10→21:03)
[2024-03-05] MEDS: COMTAN 200 MG PO ×3 (08:11→21:03)
[2024-03-05] MEDS: NEURONTIN 300 MG PO ×3 (08:11→21:06)
--- NOTE | 2024-03-05 08:41 | W.PN.ORTHO ---
Today's Communication / Plan
-
88 yo F POD1 left hip gamma nail under the direction of Dr. Rogers
--Weight bearing as tolerated to left lower extremity. We appreciate the assistance of PT/OT.
--Recommend ASA 325 mg daily x4 weeks for DVT ppx.
--Continue pain control per primary. Ice and elevation for edema control.
--Hgb 7.5 this AM. Continue to monitor.
--Maintain Aquacel dressings until 7-10 days post-op. Staple removal at 2 weeks post-op. If removed at [facility], follow up in the office at 4 weeks post-op.
--Case management consult for d/c planning.
Right clavicle fracture
--Continue with immobilization in sling.
-NWB to RUE.
--Pain control per primary.
Assessment
.
Distal Motor Intact: Yes
Dressing:
Clean, dry and intact.
Plan
.
Surgery / Date: Left hip gamma nail, [place], 03/04
DVT Prophylaxis: Aspirin
Activity:
Out of bed.
PT/OT
Subjective
.
.:
Ms. Long is POD 1 following her left hip gamma nail performed by Dr. Rogers. She is resting comfortably in bed this morning, and endorses only aching pain about the hip. She is also healing from a right clavicle fracture which she reports is doing
well. She has no questions or concerns at this time.
Vital Signs and Labs
.
Vital Signs and Labs:
Lab Results
03/05/24 04:22
03/05/24 04:22
Temp Pulse Resp BP Pulse Ox
97.1 F 71 16 101/49 94
03/05/24 07:05 03/05/24 07:05 03/05/24 07:05 03/05/24 07:05 03/05/24 07:05
PT 12.7 Sec (11.4-14.6) 03/04/24 00:01
INR 0.97 03/04/24 00:01
Physical Exam
-
Directed exam of the left hip reveals Aquacel dressings clean, dry and intact. Mild tenderness to palpation about the lateral hip. Thigh soft and compressible. Calf soft and nontender. Patient able to wiggle toes, plantar and dorsiflex ankle. NVID.
Directed exam of the right shoulder reveals edema and ecchymosis overlying the clavicle. Mild tenderness to palpation along the shaft and distal end of the clavicle. NVID.
[2024-03-05] MEDS: MUCINEX 600 MG PO ×2 (09:18→19:33)
--- NOTE | 2024-03-05 12:31 | W.PN.HOSP.TC ---
Today's Communication/Plan
-
1 unit PRBC then IV Iron tomorrow
PT/OT post-blood
DC planning to SNF
Assessment / Plan
Assessment / Plan
Assessment:
Left intertrochanteric hip fracture from fall (Traumatic) with underlying osteoporosis (pathological)
- s/p left hip gamma nail under the direction of Dr. Rogers 03/04
- continue ASA for DVT ppx
- pain control
- PT/OT
- Maintain Aquacel dressings until 7-10 days post-op. Staple removal at 2 weeks post-op. If removed at SNF, follow up in the office at 4 weeks post-op.
Right Midclavicular Fracture
- X-ray: Severely comminuted fracture of the distal right clavicle.
- s/p fall of a few days ago.
- continue with immobilization in sling.
Parkinson's Disease
- Significant increased frequency of falls with multiple injuries of late.
- Continue current med regimen without changes.
- PT/OT
- Combination of clavicle and hip fractures will make rehabilitation process challenging. Will need SNF most certainly.
acute blood loss anemia on chronic Iron Deficiency Anemia
- Hgb = 7.5 this AM; 1 unit PRBC ordered. Recent baseline around 10.
- start IV iron tomorrow if Hb improves
GERD
- Stable. Continue PPI.
Recent hospitalization 2 months prior for atypical PNA - finished Abx
Severe protein calorie malnutrition by history
Osteoporosis
�- Recent sacral insufficiency fractures - patient states she is recovering well.
DVT Prophylaxis: SCDs
Code Status: DNR
Anticipated Discharge: 24 - 48 hours
Subjective/Interval History
-
Date of Service: March 05, 2024
denies any new complaints, tolerating blood well
Objective Data
-
Labs:
Laboratory Results
03/05/24
04:22
WBC 8.3
Hgb 7.5 L
Hct 23.1 L
Plt Count 194 D
Sodium 134 L
Potassium 4.6
Chloride 109 H
Carbon Dioxide 23
BUN 18 H
Creatinine 0.7
Glucose 118 H
Calcium 7.4 L
Vital Signs:
Vital Signs
Temp Pulse Resp BP Pulse Ox
98.0 F 78 16 98/53 97
03/05/24 11:35 03/05/24 10:21 03/05/24 11:35 03/05/24 11:35 03/05/24 11:35
I&O
03/04/24 03/05/24 03/06/24
06:59 06:59 06:59
Intake Total 778 / 778 0 / 0
Output Total 400 / 400
Balance 378 / 378 0 / 0
Physical Exam
-
General: No Apparent Distress
HEENT: Normocephalic and Atraumatic
Respiratory: Negative Wheezes
Cardiac: Regular Rhythm and S1/S2
GI: Soft
Neuro: AO x 3
Hematologic / Lymphatic: No Lymphadenopathy
Psych: Calm
Data Reviewed
-
Total Time Spent with Patient (in minutes): 42
Labs: Labs Reviewed by me
[2024-03-05] MEDS: TORADOL 10 MG IV (13:57)
[2024-03-05] MEDS: FERRLECIT 110 MG IV (13:59)
--- NOTE | 2024-03-05 16:05 | CM ---
Patient from [facility] with Hx Parkinsons Dz with Dx Left hip fracture from fall s/p left hip gamma nail 03/04, Right clavicle fracture from fall. Sling Rt arm. WBAT LLE, NWB to RUE. Aquacel dressings left hip. PT & OT recommend
skilled rehab.
Met with patient who resides alone at [facility].
She states she is independent in ADLs and ambulates with her RW.
DME - RW, SPC
VN - says she has a visiting nurse named Rosemary, doensn't know agency
SNF - recent stay [facility], SNF stay in [place]
Pharmacy - can't remember
Patient agrees to short term rehab at [facility].
Patient agrees for CM contacting her son Daquan Lucio in [facility] (ph [phone].
call to son; left message requesting callback for d/c planning.
Phone call to [facility]; left 2 messages requesting callback.
Spoke with Vika Vazquez; she is not sure she will have an available bed in the next few days.
SNF referral placed. May need more SNF referrals.
Plan follow up with [facility].
[2024-03-05] MEDS: REMERON 15 MG PO (21:03)
[2024-03-05] MEDS: SENOKOT PO (21:06)
[2024-03-05] MEDS: PROTONIX 20 MG PO (21:06)
[2024-03-06 05:25] LABS: Hematocrit 28.5 % (37.0-47.0); Mean Corp Hgb Conc. 32.6 g/dL (33.0-37.0); Mean Corpuscular Hgb 28.4 pg (27.0-31.0); Mean Corpuscular Volume 86.9 fL (81.0-99.0); Mean Platelet Volume 9.8 fL (7.4-10.4); Platelet Count 216 10^3/uL (130-400); Red Blood Cell Count 3.28 10^6/uL (4.20-5.40); Red Cell Dist. Width 18.2 % (11.5-14.5); White Blood Cell Count 8.4 10^3/uL (4.8-10.8)
[2024-03-06 05:33] LABS: Hemoglobin 9.3 g/dL (12.0-16.0)
[2024-03-06 05:51] LABS: Blood Urea Nitrogen 25 mg/dl (7-17); Carbon Dioxide 19 mmol/L (22-30); Chloride 109 mmol/L (98-107); Estimated Creatinine Clearance 31 ml/min; Glucose 107 mg/dl (70-99); Potassium 4.7 mmol/L (3.5-5.1); Sodium 134 mmol/L (135-145); eGFR > 60.00
[2024-03-06 06:00] VITALS: BMI 17.6
[2024-03-06] MEDS: TORADOL 10 MG IV ×2 (06:00→20:25)
--- NOTE | 2024-03-06 06:49 | W.PN.ORTHO ---
Today's Communication / Plan
-
PT/OT
Weightbearing as tolerated
Aspirin for DVT prophylaxis
SNF once medically stable
Skin clip removal 2 weeks postop
Follow-up orthopedics 1 month for x-ray
Assessment
.
Distal Motor Intact: Yes
Dressing:
Clean, dry and intact.
Plan
.
Surgery / Date: Left hip gamma nail, Sue, 03/04
DVT Prophylaxis: Aspirin
Activity:
Out of bed.
PT/OT
Discharge Plan: SNF
Subjective
.
.:
Patient resting comfortably.
Vital Signs and Labs
.
Vital Signs and Labs:
Lab Results
03/06/24 04:18
03/06/24 04:18
Temp Pulse Resp BP Pulse Ox
98.5 F 80 16 109/56 93
03/05/24 23:02 03/05/24 23:56 03/05/24 23:02 03/05/24 23:56 03/05/24 23:02
PT 12.7 Sec (11.4-14.6) 03/04/24 00:01
INR 0.97 03/04/24 00:01
[2024-03-06 07:05] VITALS: BP 147/71
[2024-03-06] MEDS: ASPIRIN 325 MG PO (08:45)
[2024-03-06] MEDS: COMTAN 200 MG PO ×3 (08:45→21:09)
[2024-03-06] MEDS: TYLENOL 1000 MG PO ×3 (08:45→21:08)
[2024-03-06] MEDS: SINEMET 25-100 1.5 TABLET PO ×3 (08:45→21:09)
[2024-03-06] MEDS: NEURONTIN 300 MG PO ×3 (08:45→21:08)
[2024-03-06] MEDS: MUCINEX 600 MG PO ×2 (08:45→19:44)
--- NOTE | 2024-03-06 08:52 | W.PN.HOSP.TC ---
Today's Communication/Plan
-
DC planning to SNF
IV Iron for blood loss
Incentive spirometry
Assessment / Plan
Assessment / Plan
Assessment:
Left intertrochanteric hip fracture from fall (Traumatic) with underlying osteoporosis (pathological)
- s/p left hip gamma nail under the direction of Dr. Rogers 03/04
- continue ASA for DVT ppx
- pain control
- PT/OT - SNF recommended
- Maintain Aquacel dressings until 7-10 days post-op. Staple removal at 2 weeks post-op. If removed at SNF, follow up in the office at 4 weeks post-op.
Right Midclavicular Fracture
- X-ray: Severely comminuted fracture of the distal right clavicle.
- s/p fall of a few days ago.
- continue with immobilization in sling.
Parkinson's Disease
- Significant increased frequency of falls with multiple injuries of late.
- Continue current med regimen without changes.
- PT/OT - SNF recommended
- Combination of clavicle and hip fractures will make rehabilitation process challenging. Will need SNF most certainly.
acute blood loss anemia on chronic Iron Deficiency Anemia
- Hgb 9.3 s/p 1 unit PRBC. Continue to monitor.
- continue IV iron today
GERD
- Stable. Continue PPI.
Recent hospitalization 2 months prior for atypical PNA - finished Abx
Severe protein calorie malnutrition by history
Osteoporosis
�- Recent sacral insufficiency fractures - patient states she is recovering well.
DVT Prophylaxis: SCDs
Code Status: DNR
Anticipated Discharge: 24 - 48 hours
Subjective/Interval History
-
Date of Service: March 06, 2024
no new complaints
Hb 9.3
Objective Data
-
Labs:
Laboratory Results
03/06/24
04:18
WBC 8.4
Hgb 9.3 L D
Hct 28.5 L
Plt Count 216
Sodium 134 L
Potassium 4.7
Chloride 109 H
Carbon Dioxide 19 L
BUN 25 H
Creatinine 0.9
Glucose 107 H
Calcium 8.0 L
Vital Signs:
Vital Signs
Temp Pulse Resp BP Pulse Ox
97.9 F 78 17 147/71 95
03/06/24 07:05 03/06/24 07:05 03/06/24 07:05 03/06/24 07:05 03/06/24 07:05
I&O
03/05/24 03/06/24 03/07/24
06:59 06:59 06:59
Intake Total 778 / 778 910 / 910
Output Total 400 / 400 400 / 400
Balance 378 / 378 510 / 510
Physical Exam
-
General: No Apparent Distress
HEENT: Normocephalic and Atraumatic
Respiratory: Crackles (slight, faint); Negative Wheezes or Rales
Cardiac: Regular Rhythm and S1/S2
Genito-urinary: No Costovertebral Tender
Neuro: AO x 3
Psych: Calm
Data Reviewed
-
Total Time Spent with Patient (in minutes): 42
Labs: Labs Reviewed by me
--- NOTE | 2024-03-06 10:50 | CM ---
Patient from [facility] with Hx Parkinsons Dz with Dx Left hip fracture from fall s/p left hip gamma nail 03/04, Right clavicle fracture from fall. Sling Rt arm. WBAT LLE, NWB to RUE. Aquacel dressings left hip. PT & OT recommend
skilled rehab.
[facility]. Can request auth for Sunday in case bed becomes available. NPIs for insurance auth: Pete [id number], Dr Damien Soto [id number].
Spoke with patient who agrees to [facility] on Sunday for rehab. Patient declines to choose any alternate SNFs. She says her son Daquan is not calling back because he is doing settlement on his house today.
Plan Initiate Insurance Auth tomorrow, 03/08 for Sunday/Sunday.
Plan [facility] Sunday once insurance approves and bed available.
[2024-03-06 11:25] VITALS: BP 120/69; PULSE 86
[2024-03-06 11:40] VITALS: BP 120/69; PULSE 86; O2SAT 91
[2024-03-06] MEDS: FERRLECIT 110 MG IV (13:37)
[2024-03-06 16:11] VITALS: BP 114/59
[2024-03-06] MEDS: REMERON 15 MG PO (21:09)
[2024-03-06] MEDS: PROTONIX 20 MG PO (21:09)
[2024-03-06] MEDS: SENOKOT PO ×2 (21:09→21:19)
[2024-03-06 22:52] VITALS: BP 96/58
[2024-03-07] MEDS: TORADOL 10 MG IV ×2 (05:15→12:42)
[2024-03-07 05:21] LABS: Hemoglobin 8.9 g/dL (12.0-16.0); Mean Corpuscular Hgb 28.6 pg (27.0-31.0); Mean Corpuscular Volume 86.8 fL (81.0-99.0); Mean Platelet Volume 9.5 fL (7.4-10.4); Platelet Count 220 10^3/uL (130-400); Red Blood Cell Count 3.11 10^6/uL (4.20-5.40); Red Cell Dist. Width 18.3 % (11.5-14.5)
[2024-03-07 05:50] VITALS: BMI 18.2
[2024-03-07 05:52] LABS: Blood Urea Nitrogen 26 mg/dl (7-17); Calcium 7.9 mg/dl (8.4-10.2); Carbon Dioxide 19 mmol/L (22-30); Estimated Creatinine Clearance 28 ml/min; Glucose 89 mg/dl (70-99); Potassium 4.5 mmol/L (3.5-5.1); Sodium 135 mmol/L (135-145); eGFR 54.87
[2024-03-07 05:59] LABS: Chloride 112 mmol/L (98-107)
[2024-03-07 07:00] VITALS: BP 149/77
[2024-03-07] MEDS: COMTAN 200 MG PO ×3 (07:34→22:03)
[2024-03-07] MEDS: TYLENOL 1000 MG PO ×3 (07:34→22:04)
[2024-03-07] MEDS: ASPIRIN 325 MG PO (07:34)
[2024-03-07] MEDS: SINEMET 25-100 1.5 TABLET PO ×3 (07:34→22:03)
[2024-03-07] MEDS: NEURONTIN 300 MG PO ×3 (07:34→22:04)
[2024-03-07] MEDS: MUCINEX 600 MG PO ×2 (07:34→19:49)
--- NOTE | 2024-03-07 07:38 | W.PN.ORTHO ---
Today's Communication / Plan
-
PT/OT
Weightbearing as tolerated
Aspirin for DVT prophylaxis
SNF once medically stable
Skin clip removal 2 weeks postop
Follow-up orthopedics 1 month for x-ray
Orthp surg will follow peripherally at this time; please reengage with further questions or concerns.
Assessment
.
Distal Motor Intact: Yes
Dressing:
Clean, dry and intact.
Plan
.
Surgery / Date: Left hip CMN w/ Dr. Rogers 03/04/24
Activity:
Out of bed.
PT/OT
Subjective
.
.:
Patient resting comfortably.
Vital Signs and Labs
.
Vital Signs and Labs:
Lab Results
03/07/24 04:34
03/07/24 04:34
Temp Pulse Resp BP Pulse Ox
98.7 F 90 18 96/58 93
03/06/24 22:52 03/06/24 22:52 03/06/24 22:52 03/06/24 22:52 03/06/24 22:53
PT 12.7 Sec (11.4-14.6) 03/04/24 00:01
INR 0.97 03/04/24 00:01
[2024-03-07] MEDS: FERRLECIT 110 MG IV (13:29)
--- NOTE | 2024-03-07 13:30 | W.PN.HOSP.TC ---
Today's Communication/Plan
-
IV Iron
Assessment / Plan
Assessment / Plan
Assessment:
Left intertrochanteric hip fracture from fall (Traumatic) with underlying osteoporosis (pathological)
- s/p left hip gamma nail under the direction of Dr. Rogers 03/04
- continue ASA for DVT ppx
- pain control
- PT/OT - SNF recommended
- Maintain Aquacel dressings until 7-10 days post-op. Staple removal at 2 weeks post-op. If removed at SNF, follow up in the office at 4 weeks post-op.
Right Midclavicular Fracture
- X-ray: Severely comminuted fracture of the distal right clavicle.
- s/p fall of a few days ago.
- continue with immobilization in sling.
Parkinson's Disease
- Significant increased frequency of falls with multiple injuries of late.
- Continue current med regimen without changes.
- PT/OT - SNF recommended
- Combination of clavicle and hip fractures will make rehabilitation process challenging. Will need SNF most certainly.
acute blood loss anemia on chronic Iron Deficiency Anemia
- Hgb 8.9 s/p 1 unit PRBC. Continue to monitor.
- continue IV iron, day 2
GERD
- Stable. Continue PPI.
Recent hospitalization 2 months prior for atypical PNA - finished Abx
Severe protein calorie malnutrition by history
Osteoporosis
�- Recent sacral insufficiency fractures - patient states she is recovering well.
DVT Prophylaxis: SCDs
Code Status: DNR
Dispo: Medically stable for SNF DC, earliest bed @ [facility] is Sunday.
Anticipated Discharge: > 48 hours
Subjective/Interval History
-
Date of Service: March 07, 2024
denies any new complaints
Objective Data
-
Labs:
Laboratory Results
03/07/24
04:34
WBC 9.0
Hgb 8.9 L
Hct 27.0 L
Plt Count 220
Sodium 135
Potassium 4.5
Chloride 112 H
Carbon Dioxide 19 L
BUN 26 H
Creatinine 1.0
Glucose 89
Calcium 7.9 L
Vital Signs:
Vital Signs
Temp Pulse Resp BP Pulse Ox
98.2 F 78 16 149/77 96
03/07/24 07:00 03/07/24 07:00 03/07/24 07:00 03/07/24 07:00 03/07/24 08:00
I&O
03/06/24 03/07/24 03/08/24
06:59 06:59 06:59
Intake Total 910 / 910 480 / 480
Output Total 400 / 400
Balance 510 / 510 480 / 480
Physical Exam
-
General: Well Developed and Well Nourished
HEENT: Normocephalic and Atraumatic
Respiratory: Negative Wheezes
Cardiac: Regular Rhythm and S1/S2
GI: Soft and Nontender
Musculoskeletal: No Edema
Neuro: AO x 3
Hematologic / Lymphatic: No Lymphadenopathy
Psych: Calm
Data Reviewed
-
Total Time Spent with Patient (in minutes): 41
Labs: Labs Reviewed by me
[2024-03-07 14:35] VITALS: BP 113/55; PULSE 92; O2SAT 90
[2024-03-07 14:38] VITALS: BP 113/55; PULSE 92; O2SAT 90
[2024-03-07] MEDS: ZOFRAN 4 MG IV (15:11)
[2024-03-07 15:25] VITALS: BP 128/62
--- NOTE | 2024-03-07 17:43 | CM ---
met with patient at bedside.cont iv iron day #2,fx left clavicle in sling,x left hip.hgb stable.cont psain mangment.
i contacted brant at [facility] and she verified that a bed would not be available until wednesday 04/18.called [facility] [phone] and started auth .reference number [id number].faxed clinicals to [phone]. updated attending. awaiting auth for snf bed at
[facility].
[2024-03-07] MEDS: SENOKOT PO (20:59)
[2024-03-07] MEDS: REMERON 15 MG PO (22:04)
[2024-03-07] MEDS: PROTONIX 20 MG PO (22:04)
[2024-03-07 23:33] VITALS: BP 109/61
[2024-03-08] MEDS: TORADOL 10 MG IV ×2 (04:46→20:05)
[2024-03-08 05:21] LABS: Hematocrit 26.5 % (37.0-47.0); Hemoglobin 9.1 g/dL (12.0-16.0)
[2024-03-08 07:10] VITALS: BP 144/68
[2024-03-08] MEDS: TYLENOL 1000 MG PO ×3 (07:24→22:24)
[2024-03-08] MEDS: MUCINEX 600 MG PO ×2 (07:24→20:05)
[2024-03-08] MEDS: ASPIRIN 325 MG PO (07:24)
[2024-03-08] MEDS: NEURONTIN 300 MG PO ×3 (07:24→22:24)
[2024-03-08] MEDS: COMTAN 200 MG PO ×3 (07:25→22:24)
[2024-03-08] MEDS: SINEMET 25-100 1.5 TABLET PO ×3 (07:25→22:24)
--- NOTE | 2024-03-08 12:30 | PTCARENOTE ---
pt with noted swelling to left arm, arm warm, +1 edema. suggested to RN to request US. will cont to monitor
[2024-03-08] MEDS: ZOFRAN 4 MG IV (12:34)
--- NOTE | 2024-03-08 12:58 | W.PN.HOSP.TC ---
Today's Communication/Plan
-
LUE US pending
Assessment / Plan
Assessment / Plan
Assessment:
Left intertrochanteric hip fracture from fall (Traumatic) with underlying osteoporosis (pathological)
- s/p left hip gamma nail under the direction of Dr. Rogers 03/04
- continue ASA for DVT ppx
- pain control
- PT/OT - SNF recommended
- Maintain Aquacel dressings until 7-10 days post-op. Staple removal at 2 weeks post-op. If removed at SNF, follow up in the office at 4 weeks post-op.
Right Midclavicular Fracture
- X-ray: Severely comminuted fracture of the distal right clavicle.
- s/p fall of a few days ago.
- continue with immobilization in sling.
Parkinson's Disease
- Significant increased frequency of falls with multiple injuries of late.
- Continue current med regimen without changes.
- PT/OT - SNF recommended
- Combination of clavicle and hip fractures will make rehabilitation process challenging. Will need SNF most certainly.
acute blood loss anemia on chronic Iron Deficiency Anemia
- Hgb 9.1
- received 1 unit PRBC. Continue to monitor.
- continue IV iron, day 5/
LUE swelling
- no pain
- Venous US pending
GERD
- Stable. Continue PPI.
Recent hospitalization 2 months prior for atypical PNA - finished Abx
Severe protein calorie malnutrition by history
Osteoporosis
�- Recent sacral insufficiency fractures - patient states she is recovering well.
DVT Prophylaxis: SCDs
Code Status: DNR
Dispo: Medically stable for SNF DC, earliest bed @ [facility] is Sunday per CM.
Anticipated Discharge: > 48 hours
Subjective/Interval History
-
Date of Service: March 08, 2024
LUE swelling, patient denies pain
no fevers
Objective Data
-
Labs:
Laboratory Results
03/08/24
04:30
Hgb 9.1 L
Hct 26.5 L
Vital Signs:
Vital Signs
Temp Pulse Resp BP Pulse Ox
99.2 F 75 16 144/68 96
03/08/24 07:10 03/08/24 07:10 03/08/24 07:10 03/08/24 07:10 03/08/24 08:00
I&O
03/07/24 03/08/24 03/09/24
06:59 06:59 06:59
Intake Total 480 / 480 560 / 560 120 / 120
Balance 480 / 480 560 / 560 120 / 120
Physical Exam
-
General: No Apparent Distress
HEENT: Normocephalic and Atraumatic
Respiratory: Negative Wheezes
Cardiac: Regular Rhythm and S1/S2
GI: Soft
Genito-urinary: No Costovertebral Tender
Neuro: AO x 3
Hematologic / Lymphatic: No Lymphadenopathy
Psych: Calm
Data Reviewed
-
Total Time Spent with Patient (in minutes): 41
Labs: Labs Reviewed by me
[2024-03-08] MEDS: FERRLECIT 110 MG IV (13:39)
[2024-03-08] MEDS: IMODIUM 2 MG PO (15:04)
[2024-03-08 15:10] VITALS: BP 158/76
[2024-03-08] MEDS: FLUSH (NSS) 2 FLUSH IV (20:09)
[2024-03-08] MEDS: PROTONIX 20 MG PO (22:24)
[2024-03-08] MEDS: REMERON 15 MG PO (22:24)
[2024-03-08] MEDS: SENOKOT PO (22:24)
[2024-03-08 23:26] VITALS: BP 119/57
[2024-03-09] MEDS: TORADOL 10 MG IV (05:10)
[2024-03-09] MEDS: FLUSH (NSS) 2 FLUSH IV (05:11)
[2024-03-09] MEDS: TUMS 1 TABLET PO (05:26)
[2024-03-09 06:00] VITALS: BMI 18.0
[2024-03-09 08:14] VITALS: BP 157/78
[2024-03-09] MEDS: TYLENOL 1000 MG PO ×2 (09:25→19:59)
[2024-03-09] MEDS: SINEMET 25-100 1.5 TABLET PO ×3 (09:25→19:59)
[2024-03-09] MEDS: MUCINEX 600 MG PO ×2 (09:25→19:58)
[2024-03-09] MEDS: COMTAN 200 MG PO ×3 (09:26→19:59)
[2024-03-09] MEDS: NEURONTIN 300 MG PO ×3 (09:26→19:58)
[2024-03-09] MEDS: ASPIRIN 325 MG PO (09:26)
--- NOTE | 2024-03-09 11:40 | W.PN.HOSP.TC ---
Today's Communication/Plan
-
warm compressions for superficial cephalic LUE clot
DC Planning to SNF
Assessment / Plan
Assessment / Plan
Assessment:
Left intertrochanteric hip fracture from fall (Traumatic) with underlying osteoporosis (pathological)
- s/p left hip gamma nail under the direction of Dr. Rogers 03/04
- continue ASA for DVT ppx
- pain control
- PT/OT - SNF recommended
- Maintain Aquacel dressings until 7-10 days post-op. Staple removal at 2 weeks post-op. If removed at SNF, follow up in the office at 4 weeks post-op.
Right Midclavicular Fracture
- X-ray: Severely comminuted fracture of the distal right clavicle.
- s/p fall of a few days ago.
- continue with immobilization in sling.
Parkinson's Disease
- Significant increased frequency of falls with multiple injuries of late.
- Continue current med regimen without changes.
- PT/OT - SNF recommended
- Combination of clavicle and hip fractures will make rehabilitation process challenging. Will need SNF most certainly.
acute blood loss anemia on chronic Iron Deficiency Anemia
- Hgb 9.1
- received 1 unit PRBC. Continue to monitor.
- completed IV Iron
LUE Nonocclusive thrombus within the left cephalic vein within the distal upper arm.
- near prior IV Site
- warm compresses
GERD
- Stable. Continue PPI.
Recent hospitalization 2 months prior for atypical PNA - finished Abx
Severe protein calorie malnutrition by history
Osteoporosis
�- Recent sacral insufficiency fractures - patient states she is recovering well.
DVT Prophylaxis: SCDs
Code Status: DNR
Dispo: Medically stable for SNF DC, earliest bed @ [facility] is Sunday per CM.
Anticipated Discharge: Within 24 hours
Subjective/Interval History
-
Date of Service: March 09, 2024
no new complaints
Objective Data
-
Vital Signs:
Vital Signs
Temp Pulse Resp BP Pulse Ox
97.8 F 70 16 157/78 96
03/09/24 08:14 03/09/24 08:14 03/09/24 08:14 03/09/24 08:14 03/09/24 08:14
I&O
03/08/24 03/09/24 03/10/24
06:59 06:59 06:59
Intake Total 560 / 560 1320 / 1320
Balance 560 / 560 1320 / 1320
Physical Exam
-
General: No Apparent Distress
HEENT: Normocephalic and Atraumatic
Respiratory: Negative Wheezes
Cardiac: Regular Rhythm and S1/S2
GI: Soft
Genito-urinary: No Costovertebral Tender
Neuro: AO x 3
Hematologic / Lymphatic: No Lymphadenopathy
Psych: Calm
Data Reviewed
-
Total Time Spent with Patient (in minutes): 41
Labs: Labs Reviewed by me
[2024-03-09 15:42] VITALS: BP 122/74
--- NOTE | 2024-03-09 16:47 | PTCARENOTE ---
LA SITE OF INFILTRATE APPEARS LESS SWOLLEN, PRIMARY RN STATED THAT HEAT WAS APPLIED EARLIER THIS AM AND WILL WILL APPLY AROUND DINNER TIME TODAY. PT RESTING
--- NOTE | 2024-03-09 17:26 | CM ---
Addendum entered by Jaclyn Lopez 03/09/24 18:40:
i did receive call back from son oralia christian and he is fine with patient dc tomorrow to [facility] rehab.
Original Note:
met allen patient and explained she has a bed at [facility] tomorrow.i called son nafisa who asked me to call anahi barton [phone].i called and left [facility] for oralia to return my call.i received [facility] auth from [place]
monica # [id number] from 03/09-03/12 with [facility] 03/12/24 and fax to [phone].i called [facility] and gave her this information.heating unit installer has transportation papers.facility asked for 4pm transport.patient signed imm letter.attending aware of discharge
information.
phone number to call report is [phone] and fax number is [phone].
[2024-03-09] MEDS: IMODIUM 2 MG PO (17:37)
[2024-03-09] MEDS: TYLENOL PO (17:38)
[2024-03-09] MEDS: PROTONIX 20 MG PO (19:58)
[2024-03-09] MEDS: REMERON 15 MG PO (19:58)
[2024-03-09] MEDS: SENOKOT PO (19:59)
--- NOTE | 2024-03-09 22:40 | PTCARENOTE ---
Pt. with x2 loose, gelatinous stools within past 3 hours and 1 loose stool reported on dayshift. C. diff testing ordered per protocol, collected, and sent to lab.
[2024-03-09 23:05] VITALS: BP 119/62
[2024-03-10] MEDS: TORADOL 10 MG IV (03:00)
[2024-03-10 05:51] VITALS: BMI 17.9
[2024-03-10] MEDS: TESSALON PERLES 100 MG PO (06:32)
[2024-03-10 06:55] LABS: Hematocrit 28.1 % (37.0-47.0); Hemoglobin 9.3 g/dL (12.0-16.0)
[2024-03-10 07:05] VITALS: BP 155/76
[2024-03-10 07:17] LABS: Blood Urea Nitrogen 28 mg/dl (7-17); Calcium 8.6 mg/dl (8.4-10.2); Carbon Dioxide 20 mmol/L (22-30); Chloride 111 mmol/L (98-107); Estimated Creatinine Clearance 27 ml/min; Glucose 101 mg/dl (70-99); Potassium 5.5 mmol/L (3.5-5.1); Sodium 135 mmol/L (135-145); eGFR 54.87
[2024-03-10] MEDS: MUCINEX 600 MG PO ×2 (07:59→20:34)
[2024-03-10] MEDS: IMODIUM 2 MG PO (07:59)
[2024-03-10] MEDS: TYLENOL 1000 MG PO ×3 (07:59→20:36)
[2024-03-10] MEDS: COMTAN 200 MG PO ×3 (08:00→20:35)
[2024-03-10] MEDS: SINEMET 25-100 1.5 TABLET PO ×3 (08:00→20:35)
[2024-03-10] MEDS: ASPIRIN 325 MG PO (08:00)
[2024-03-10] MEDS: NEURONTIN 300 MG PO ×3 (08:00→20:34)
--- NOTE | 2024-03-10 10:19 | W.PN.HOSP.TC ---
Today's Communication/Plan
-
.
Assessment / Plan
Assessment / Plan
Physical exam:
General: No Apparent Distress and Appears Chronically Ill
HEENT: Normocephalic
Respiratory: no wheezes or Rhonchi, but Decreased Breath Sounds
Cardiac: Regular Rhythm
GI: Soft, Nontender and Nondistended
Skin: Warm
Neuro: Awake, Alert and Oriented
Psych: Calm
Assessment:
# Hyperkalemia, repeat K is 5.8
will do stat Lokelma
recheck K tonight
change diet to low K
Left intertrochanteric hip fracture from fall (Traumatic) with underlying osteoporosis (pathological)
- s/p left hip gamma nail under the direction of Dr. Rogers 03/04
- continue ASA for DVT ppx
- pain control
- PT/OT - SNF recommended
- Maintain Aquacel dressings until 7-10 days post-op. Staple removal at 2 weeks post-op. If removed at SNF, follow up in the office at 4 weeks post-op.
Right Midclavicular Fracture
- X-ray: Severely comminuted fracture of the distal right clavicle.
- s/p fall of a few days ago.
- continue with immobilization in sling.
Parkinson's Disease
- Significant increased frequency of falls with multiple injuries of late.
- Continue current med regimen without changes.
- PT/OT - SNF recommended
- Combination of clavicle and hip fractures will make rehabilitation process challenging. Will need SNF most certainly.
acute blood loss anemia on chronic Iron Deficiency Anemia
- Hgb 9.1
- received 1 unit PRBC. Continue to monitor.
- completed IV Iron
LUE Nonocclusive thrombus within the left cephalic vein within the distal upper arm.
- near prior IV Site
- warm compresses
GERD
- Stable. Continue PPI.
Recent hospitalization 2 months prior for atypical PNA - finished Abx
Severe protein calorie malnutrition by history
Osteoporosis
�- Recent sacral insufficiency fractures - patient states she is recovering well.
DVT Prophylaxis: SCDs
Code Status: DNR
dc on hold due to high K
Left VM to the son
Total time spent to see the patient, examine the patient on the floor, review data and lab results, discuss treatment plan with patient, case packer and sealer, nursing staff around 55 minutes
Anticipated Discharge: Within 24 hours
Subjective/Interval History
-
Date of Service: March 10, 2024
No complaints
Objective Data
-
Labs:
Laboratory Results
03/10/24
06:23
Hgb 9.3 L
Hct 28.1 L
Sodium 135
Potassium 5.5 H
Chloride 111 H
Carbon Dioxide 20 L
BUN 28 H
Creatinine 1.0
Glucose 101 H
Calcium 8.6
Vital Signs:
Vital Signs
Temp Pulse Resp BP Pulse Ox
98.3 F 74 17 155/76 93
03/10/24 07:05 03/10/24 07:05 03/10/24 07:05 03/10/24 07:05 03/10/24 08:00
I&O
03/09/24 03/10/24 03/11/24
06:59 06:59 06:59
Intake Total 1320 / 1320 1080 / 1080
Balance 1320 / 1320 1080 / 1080
--- NOTE | 2024-03-10 13:20 | W.DCSUMMARY ---
Discharge Summary
Discharge Data
Date of Admission: 03/04/24
Date of Discharge: 03/13/24
-
Pending Results: No
Hospital Course
88 years old female who presented to the emergency room after a fall. She had left hip pain. Imaging study showed left hip intertrochanteric femur fracture. Patient was evaluated by orthopedic doctor. She underwent left hip gamma nail fixation
by Dr. Rogers on 03/04/24. No complications reported. She was given aspirin 325 mg for deep venous thrombosis prophylaxis. She also had right midclavicular fracture that was severely comminuted. Orthopedic doctor recommended immobilization with a
sling. Patient had acute blood loss anemia on the history of chronic iron deficiency anemia. She was given 1 unit of blood postoperatively and given intravenous iron. Hemoglobin upon discharge was 9.3. She had left upper extremity swelling
without pain or compromise to peripheral pulses. She was found to have nonocclusive thrombus within the left cephalic vein within the distal upper arm without deep venous thrombosis. She was given warm compresses with good clinical improvement.
Patient was maintained on her Parkinson disease medications without changes. She was noted to have high potassium level. She was given Lokelma and intravenous fluid. Potassium level improved. She did not have nausea or vomiting. She tolerated
diet well. She remained hemodynamically stable and was discharged in a stable condition. She requested a prescription for narcotic to help with pain at night.
Physical exam:
General: No Apparent Distress and Appears Chronically Ill
HEENT: Normocephalic
Respiratory: no wheezes or Rhonchi, but Decreased Breath Sounds
Cardiac: Regular Rhythm
GI: Soft, Nontender and Nondistended
Skin: Warm
MSK: Right arm in sling.
Neuro: Awake, Alert and Oriented, she followed commands, stiffness noted in mobility( chronic due to Parkinson)
Psych: Calm
Total discharge time spent to see the patient, examine the patient on the floor, review data and lab results, discuss discharge plan with patient, nursing staff around 65 minutes
Discharge Plan
-
Patient Disposition: [facility]NF
Discharge Diagnosis/Procedures: Left intertrochanteric hip fracture from fall (Traumatic) with underlying osteoporosis (pathological) s/p left hip gamma nail under the direction of Dr. Rogers 03/04.
Right Midclavicular Fracture
Parkinson's disease
Hyperkalemia, resolved
Acute blood loss anemia s/p one unit of RBCS transfusion
Condition: Fair
Diet: As tolerated
Driving Restrictions: Not until seen by your Dr
Bathing Restrictions: OK to Shower
Wound Care: Aquacell dressing can come down 7-10 days from surgery. Vidya out 14 days from surgery
Referrals:
Sergio Rogers MD [Active] - (Please call [phone] to schedule either a 2 week postop visit or 4 week postop visit depending if your rehab center is able to remove your vidya (come at 2 weeks if office needs to remove vidya))
UNKNOWN - PT DOES,NOT KNOW [Family Provider] -
Prescriptions:
New
oxycodone-acetaminophen [Percocet] 5-325 mg tablet
1 tab PO HSPRN PRN (Reason: pain at night) Qty: 10 0RF
entacapone 200 mg Tablet
200 mg PO TID Qty: 90 0RF
aspirin 325 mg Tablet
325 mg PO DAILY Qty: 28 0RF
Continued
acetaminophen 325 mg Tablet
650 mg PO Q6HPRN PRN (Reason: mild pain/temp>100)
cyanocobalamin (vitamin B-12) 500 mcg Tablet
500 mcg PO DAILY
benzonatate 100 mg Capsule
100 mg PO Q8HPRN PRN (Reason: cough)
mirtazapine 15 mg Tablet
15 mg PO HS
ferrous sulfate 325 mg (65 mg iron) Tablet,Delayed Release (Dr/Ec)
325 mg PO MOWEFR
fkfrsdzpw-rkiqsgho-jlauuciepx 37.5-150-200 mg Tablet
1 tab PO TID
melatonin 5 mg Tablet
5 mg PO HS
multivitamin Tablet
1 tab PO DAILY
pantoprazole 20 mg Tablet,Delayed Release (Dr/Ec)
20 mg PO HS
gabapentin 100 mg Capsule
300 mg PO TID
loperamide 2 mg Capsule
2 mg PO Q6HPRN PRN (Reason: diarrhea) Qty: 10 0RF
calcium carbonate [Antacid (calcium carbonate)] 200 mg calcium (500 mg) Tablet,Chewable
200 mg PO Q4HPRN PRN (Reason: gastritis) Qty: 1 0RF
ondansetron HCl 4 mg Tablet
4 mg PO Q8HPRN PRN (Reason: Nausea)
guaifenesin [Mucinex] 600 mg Tablet Extended Release 12hr
600 mg PO BID
Refresh Optive 0.5-0.9 % Drops
1 drp BOTH EYES Q6HPRN PRN (Reason: DRY EYES)
Changed
Ensure Liquid
1 ea PO BID Qty: 0 0RF
Discontinued
calcium carbonate [Calcium 500] 500 mg calcium (1,250 mg) Tablet,Chewable
500 mg PO DAILY
Chloraseptic Sore Throat 6-10 mg Lozenge
1 michele PO Q4HPRN PRN (Reason: sore throat) Qty: 18 0RF
Discharge Orders:
Discharge Patient (As Directed); Ordered 03/12/24
Ordered By: Burt Hinds
Discharge Date and Time
Print Language: SLOVENIAN
[2024-03-10 14:30] LABS: Potassium 5.8 mmol/L (3.5-5.1)
[2024-03-10] MEDS: LOKELMA 10 GRAM PO (15:10)
[2024-03-10 15:39] VITALS: BP 153/79
[2024-03-10] MEDS: SENOKOT PO (20:35)
[2024-03-10] MEDS: REMERON 15 MG PO (20:35)
[2024-03-10] MEDS: PROTONIX 20 MG PO (20:35)
[2024-03-10 22:55] VITALS: BP 127/53
[2024-03-11] MEDS: TYLENOL 325 MG PO (03:48)
[2024-03-11 06:00] VITALS: BMI 18.3
[2024-03-11 06:23] LABS: Blood Urea Nitrogen 25 mg/dl (7-17); Calcium 8.4 mg/dl (8.4-10.2); Carbon Dioxide 19 mmol/L (22-30); Chloride 113 mmol/L (98-107); Estimated Creatinine Clearance 30 ml/min; Glucose 106 mg/dl (70-99); Potassium 5.8 mmol/L (3.5-5.1); Sodium 136 mmol/L (135-145); eGFR > 60.00
[2024-03-11 07:44] VITALS: BP 155/76
[2024-03-11] MEDS: ASPIRIN 325 MG PO (08:00)
[2024-03-11] MEDS: NEURONTIN 300 MG PO ×3 (08:00→22:14)
[2024-03-11] MEDS: SINEMET 25-100 1.5 TABLET PO ×3 (08:00→22:15)
[2024-03-11] MEDS: MUCINEX 600 MG PO ×2 (08:00→19:42)
[2024-03-11] MEDS: LOKELMA 10 GRAM PO ×2 (08:01→19:42)
[2024-03-11] MEDS: COMTAN 200 MG PO ×3 (08:01→22:15)
[2024-03-11] MEDS: TYLENOL 1000 MG PO ×3 (08:01→22:16)
--- NOTE | 2024-03-11 09:57 | W.PN.HOSP.TC ---
Today's Communication/Plan
-
Treat Hyperkalemia and metabolic acidosis
Assessment / Plan
Assessment / Plan
Physical exam:
General: No Apparent Distress and Appears Chronically Ill
HEENT: Normocephalic
Respiratory: no wheezes or Rhonchi, but Decreased Breath Sounds
Cardiac: Regular Rhythm
GI: Soft, Nontender and Nondistended
Skin: Warm
Neuro: Awake, Alert and Oriented
Psych: Calm
Assessment:
# Hyperkalemia, repeat K is 5.8 today
will give Lokelma BID today, mild IVF to improve renal clearance
recheck K in am
C/W Low potassium diet
No hyperglycemia, reviewed meds, no culprit, mild metabolic acidosis, will give sodium bicarbonate tab.
Left intertrochanteric hip fracture from fall (Traumatic) with underlying osteoporosis (pathological)
- s/p left hip gamma nail under the direction of Dr. Rogers 03/04
- continue ASA for DVT ppx
- pain control
- PT/OT - SNF recommended
- Maintain Aquacel dressings until 7-10 days post-op. Staple removal at 2 weeks post-op. If removed at SNF, follow up in the office at 4 weeks post-op.
Right Midclavicular Fracture
- X-ray: Severely comminuted fracture of the distal right clavicle.
- s/p fall of a few days ago.
- continue with immobilization in sling.
Parkinson's Disease
- Significant increased frequency of falls with multiple injuries of late.
- Continue current med regimen without changes.
- PT/OT - SNF recommended
- Combination of clavicle and hip fractures will make rehabilitation process challenging. Will need SNF most certainly.
acute blood loss anemia on chronic Iron Deficiency Anemia
- Hgb 9.3
- received 1 unit PRBC. Continue to monitor.
- completed IV Iron
LUE Nonocclusive thrombus within the left cephalic vein within the distal upper arm.
- near prior IV Site
- warm compresses
GERD
- Stable. Continue PPI.
Recent hospitalization 2 months prior for atypical PNA - finished Abx
Severe protein calorie malnutrition by history
Osteoporosis
�- Recent sacral insufficiency fractures - patient states she is recovering well.
DVT Prophylaxis: SCDs
Code Status: DNR
dc on hold due to high K
Will call son again.
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
Anticipated Discharge: Within 24 hours
Subjective/Interval History
-
Date of Service: March 11, 2024
No complaints
Objective Data
-
Labs:
Laboratory Results
03/11/24
05:05
Sodium 136
Potassium 5.8 H
Chloride 113 H
Carbon Dioxide 19 L
BUN 25 H
Creatinine 0.9
Glucose 106 H
Calcium 8.4
Vital Signs:
Vital Signs
Temp Pulse Resp BP Pulse Ox
97.3 F 70 18 155/76 94
03/11/24 07:44 03/11/24 07:44 03/11/24 07:44 03/11/24 07:44 03/11/24 08:31
I&O
03/10/24 03/11/24 03/12/24
06:59 06:59 06:59
Intake Total 1080 / 1080 240 / 240
Balance 1080 / 1080 240 / 240
--- NOTE | 2024-03-11 10:26 | PN.CDI ---
Addendum entered and electronically signed by Burt Hinds MD 03/11/24 10:35:
Severe protein calorie malnutrition ( reported in note also),
Please reach out to [phone] if questions.
Original Note:
CDI
- -
CDI:
Physician Documentation Request
Admit Date: 03/04/24 05:27
Dear Doctor Lizet,
Clinical Indicators:
Patient admitted with left intertrochanteric hip fracture.
03/04 BMI assessment: Underweight
BMI trend:
03/03/24
23:39 03/07/24
05:50 03/11/24
06:00
Body Mass Index (BMI) 17.9 18.2 18.3
If possible, please provide an associated diagnosis related to the abnormal BMI (</= 19.9), such as:
Underweight
BMI not significant
Other, please specify
Use of terms such as suspected, likely, concern for, or probable (associated with a specific diagnosis that is being evaluated, monitored, or treated as if it exists) are acceptable and can be coded in the inpatient setting, when documented at the
time of discharge.
Thank you,
ARLEN Mcintosh RN
CDI Specialist
available via tiger text
Please use your independent medical judgment in providing your response.
[2024-03-11] MEDS: SODIUM BICARBONATE 650 MG PO (11:06)
[2024-03-11] MEDS: NSS 500 IV ×3 (11:06→22:14)
[2024-03-11 12:20] VITALS: BP 110/60; PULSE 76; O2SAT 91
[2024-03-11 12:36] VITALS: BP 110/60; PULSE 76; O2SAT 91
--- NOTE | 2024-03-11 14:46 | CM ---
Spoke with son, Daquan, this AM. Updated on discharge plan of care: accepted to [facility] pending bed availability. Not medically cleared for discharge as yet, K 5.8.
[2024-03-11 15:12] VITALS: BP 115/61
[2024-03-11] MEDS: SENOKOT PO (22:16)
[2024-03-11] MEDS: REMERON 15 MG PO (22:16)
[2024-03-11] MEDS: PROTONIX 20 MG PO (22:17)
[2024-03-11 23:00] VITALS: BP 148/73
[2024-03-12] MEDS: DILAUDID 0.5 MG IV ×2 (05:10→23:49)
[2024-03-12] MEDS: NSS 500 IV ×2 (05:11→10:16)
[2024-03-12 06:00] VITALS: BMI 19.0
[2024-03-12 07:40] VITALS: BP 139/69
[2024-03-12] MEDS: MUCINEX 600 MG PO ×2 (08:00→21:14)
[2024-03-12] MEDS: NEURONTIN 300 MG PO ×3 (08:00→21:17)
[2024-03-12] MEDS: SINEMET 25-100 1.5 TABLET PO ×3 (08:01→21:15)
[2024-03-12] MEDS: TYLENOL 1000 MG PO ×3 (08:03→21:18)
[2024-03-12] MEDS: ZOFRAN 4 MG IV (08:04)
[2024-03-12] MEDS: COMTAN 200 MG PO ×3 (08:05→21:18)
[2024-03-12] MEDS: ASPIRIN 325 MG PO (08:05)
[2024-03-12 09:05] LABS: Blood Urea Nitrogen 20 mg/dl (7-17); Calcium 8.4 mg/dl (8.4-10.2); Carbon Dioxide 17 mmol/L (22-30); Chloride 115 mmol/L (98-107); Estimated Creatinine Clearance 36 ml/min; Glucose 94 mg/dl (70-99); Potassium 4.9 mmol/L (3.5-5.1); Sodium 136 mmol/L (135-145); eGFR > 60.00
[2024-03-12] MEDS: LOKELMA 10 GRAM PO ×2 (10:10→21:11)
[2024-03-12] MEDS: LOKELMA PO (10:20)
--- NOTE | 2024-03-12 11:14 | CM ---
Addendum entered by Ivy East 03/12/24 16:27:
updated clinical information faxed to [facility] for update to auth
Addendum entered by Ivy East 03/12/24 12:55:
Patient son updated and physician. NO available beds today. CM will call to update insurance auth
Original Note:
Per Taylor at [facility], no available beds today. First available one is tomorrow, Patient will need updated authorization. CM will update patient and physician.
--- NOTE | 2024-03-12 11:26 | W.PN.HOSP.TC ---
Today's Communication/Plan
-
dc planning
Assessment / Plan
Assessment / Plan
Physical exam:
General: No Apparent Distress and Appears Chronically Ill
HEENT: Normocephalic
Respiratory: no wheezes or Rhonchi, but Decreased Breath Sounds
Cardiac: Regular Rhythm
GI: Soft, Nontender and Nondistended
Skin: Warm
Neuro: Awake, Alert and Oriented
Psych: Calm
Assessment:
# Hyperkalemia, repeat K is 4.9
s/p Lokelma, IVF and sodium bicarbonate
resolved
c/w low K diet
recheck BMP in few days
Left intertrochanteric hip fracture from fall (Traumatic) with underlying osteoporosis (pathological)
- s/p left hip gamma nail under the direction of Dr. Rogers 03/04
- continue ASA for DVT ppx
- pain control
- PT/OT - SNF recommended
- Maintain Aquacel dressings until 7-10 days post-op. Staple removal at 2 weeks post-op. If removed at SNF, follow up in the office at 4 weeks post-op.
Right Midclavicular Fracture
- X-ray: Severely comminuted fracture of the distal right clavicle.
- s/p fall of a few days ago.
- continue with immobilization in sling.
Parkinson's Disease
- Significant increased frequency of falls with multiple injuries of late.
- Continue current med regimen without changes.
- PT/OT - SNF recommended
- Combination of clavicle and hip fractures will make rehabilitation process challenging. Will need SNF most certainly.
acute blood loss anemia on chronic Iron Deficiency Anemia
- Hgb 9.3
- received 1 unit PRBC. Continue to monitor.
- completed IV Iron
LUE Nonocclusive thrombus within the left cephalic vein within the distal upper arm. Swelling resolved. No pain in arm or tenderness.
- It was near prior IV Site
GERD
- Stable. Continue PPI.
Recent hospitalization 2 months prior for atypical PNA - finished Abx
Severe protein calorie malnutrition by history
Osteoporosis
�- Recent sacral insufficiency fractures - patient states she is recovering well.
DVT Prophylaxis: SCDs
Code Status: DNR
Total time spent to see the patient, examine the patient on the floor, review data and lab results, discuss treatment plan with patient, son Daquan, oil field caser, nursing staff around 59 minutes
Anticipated Discharge: Today
Subjective/Interval History
-
Date of Service: March 12, 2024
No complaints
Body aches at times
Objective Data
-
Labs:
Laboratory Results
03/12/24
07:00
Sodium 136
Potassium 4.9
Chloride 115 H
Carbon Dioxide 17 L
BUN 20 H
Creatinine 0.8
Glucose 94
Calcium 8.4
Vital Signs:
Vital Signs
Temp Pulse Resp BP Pulse Ox
98.1 F 73 16 139/69 93
03/12/24 07:40 03/12/24 07:40 03/12/24 07:40 03/12/24 07:40 03/12/24 07:40
I&O
03/11/24 03/12/24 03/13/24
06:59 06:59 06:59
Intake Total 240 / 240 2340 / 2340 360 / 360
Balance 240 / 240 2340 / 2340 360 / 360
[2024-03-12 15:13] VITALS: BP 140/61
[2024-03-12] MEDS: IMODIUM 2 MG PO (16:24)
[2024-03-12] MEDS: REMERON 15 MG PO (21:15)
[2024-03-12] MEDS: SENOKOT PO (21:16)
[2024-03-12] MEDS: PROTONIX 20 MG PO (21:17)
[2024-03-12 23:10] VITALS: BP 105/59
[2024-03-13 06:00] VITALS: BMI 18.6
[2024-03-13 06:52] VITALS: BP 139/72
[2024-03-13] MEDS: COMTAN 200 MG PO ×2 (08:28→16:03)
[2024-03-13] MEDS: ASPIRIN 325 MG PO (08:28)
[2024-03-13] MEDS: NEURONTIN 300 MG PO ×2 (08:29→16:03)
[2024-03-13] MEDS: SINEMET 25-100 1.5 TABLET PO ×2 (08:29→16:12)
[2024-03-13] MEDS: MUCINEX 600 MG PO (08:29)
[2024-03-13] MEDS: TYLENOL 1000 MG PO ×2 (08:30→16:03)
--- NOTE | 2024-03-13 09:32 | CM ---
i received a call from cristina at [facility] [phone].she states that patient will only need a new auth if she does not dc to [facility] today then tomorrow she will need a new auth.i called and left vmm with brant at [facility].
[2024-03-13] MEDS: ZOFRAN 4 MG IV (12:28)
[2024-03-13] MEDS: FLUSH (NSS) 2 FLUSH IV (12:29)
--- NOTE | 2024-03-13 12:31 | CM ---
Addendum entered by Sachin Chan 03/13/24 13:29:
Transport scheduled for 5:00 PM. Admissions, son and team notified.
Original Note:
Patient has been medically cleared for discharge to [facility] assisted and rehab services. Case Management received a call from Debora at [facility] [phone] stating that patient does not need auth if discharged today.
Will only need a new auth if she discharges after today. Transport to be scheduled. Patient, son (Daquan) and team notified.
NURSE TO NURSE REPORT # [phone]
FAX # [phone]
[2024-03-13 12:32] VITALS: BP 141/69; PULSE 74
--- NOTE | 2024-03-13 12:32 | PTCARENOTE ---
pt assisted out of bed to chair w/PT and OT. during session, Case management notified pt that she would be discharged today to SNF. pt immediately c/o feeling nauseous. pt offered Zofran. pt with mints and emesis basin sitting in chair. Zofran
given per DEC. pt offered amena abel-pt declined. will monitor.
[2024-03-13 15:01] VITALS: BP 141/75
== END 2024-03-13 17:28 | DRG 480 ==
LOC: 2 SOUTH 05:27
PROVIDERS: Internal Medicine; ADMITTING PHYSICIAN Hospitalist; ATTENDING PHYSICIAN Internal Medicine; EMERGENCY PHYSICIAN Emergency Medicine; OTHER PHYSICIAN Orthopaedic Surgery
PROC: 0QS706Z Reposition Left Upper Femur with Intramedullary Internal Fixation Device, Open Approach (ICD-10-PCS; 2024-03-04)
PROC: 30233N1 Transfusion of Nonautologous Red Blood Cells into Peripheral Vein, Percutaneous Approach (ICD-10-PCS; 2024-03-05)
DX: M80.052A Age-related osteoporosis with current pathological fracture, left femur, initial encounter for fracture (principal); E43 Unspecified severe protein-calorie malnutrition; Z68.1 Body mass index [BMI] 19.9 or less, adult; D62 Acute posthemorrhagic anemia; I82.612 Acute embolism and thrombosis of superficial veins of left upper extremity; E87.20 Acidosis, unspecified; M80.011A Age-related osteoporosis with current pathological fracture, right shoulder, initial encounter for fracture; D50.9 Iron deficiency anemia, unspecified; S20.211A Contusion of right front wall of thorax, initial encounter; R29.6 Repeated falls; E87.5 Hyperkalemia; K21.9 Gastro-esophageal reflux disease without esophagitis; F02.80 Dementia in other diseases classified elsewhere, unspecified severity, without behavioral disturbance, psychotic disturbance, mood disturbance, and anxiety; G20.A1 Parkinson's disease without dyskinesia, without mention of fluctuations; W01.0XXA Fall on same level from slipping, tripping and stumbling without subsequent striking against object, initial encounter; Y93.9 Activity, unspecified; Y92.129 Unspecified place in nursing home as the place of occurrence of the external cause; Z87.11 Personal history of peptic ulcer disease; Z88.5 Allergy status to narcotic agent; Z66 Do not resuscitate; Z87.01 Personal history of pneumonia (recurrent); Z87.310 Personal history of (healed) osteoporosis fracture
CPT/HCPCS: 70450; 71045; 72125; 73000; 73502; 76000; 80048; 80053; 83540; 83550; 84132; 85014; 85018; 85025; 85027; 85610; 85730; 86850; 86900; 86901; 86920; 87070; 87324; 87449; 93005; 93971; 96374; 96375; 96376; 97110; 97116; 97163; 97167; 97530; 97535; 99285; C1713; C1769; J2916; P9016

== ENCOUNTER → 2024-03-17 12:00 | Outpatient (REF) | payer MEDICARE, SELFPAY ==
[2024-03-17 12:57] LABS: Hematocrit 33.9 % (37.0-47.0); Hemoglobin 10.5 g/dL (12.0-16.0); Mean Corpuscular Volume 93.6 fL (81.0-99.0); Mean Platelet Volume 9.7 fL (7.4-10.4); Platelet Count 484 10^3/uL (130-400); Red Blood Cell Count 3.62 10^6/uL (4.20-5.40); Red Cell Dist. Width 19.9 % (11.5-14.5); White Blood Cell Count 11.2 10^3/uL (4.8-10.8)
[2024-03-17 13:39] LABS: ALT (SGPT) < 10 U/L (0-35); AST (SGOT) 21 U/L (14-36); Albumin 3.1 g/dl (3.5-5.0); Alkaline Phosphatase 165 U/L (38-126); Blood Urea Nitrogen 18 mg/dl (7-17); Calcium 8.8 mg/dl (8.4-10.2); Carbon Dioxide 22 mmol/L (22-30); Chloride 113 mmol/L (98-107); Glucose 83 mg/dl (70-99); Potassium 4.9 mmol/L (3.5-5.1); Sodium 140 mmol/L (135-145); Total Bilirubin 0.6 mg/dl (0.2-1.3); eGFR > 60.00
== END ==
LOC: OLABWHC 12:00
PROVIDERS: ATTENDING PHYSICIAN Internal Medicine
DX: E44.0 Moderate protein-calorie malnutrition (principal); D50.9 Iron deficiency anemia, unspecified
CPT/HCPCS: 36415; 80053; 85027

== ENCOUNTER → 2024-08-14 09:10 | Outpatient (REF) | payer MEDICARE, SELFPAY ==
[2024-08-14 10:24] LABS: Hematocrit 35.2 % (37.0-47.0); Hemoglobin 11.3 g/dL (12.0-16.0); Mean Corp Hgb Conc. 32.1 g/dL (33.0-37.0); Mean Corpuscular Hgb 30.8 pg (27.0-31.0); Mean Corpuscular Volume 95.9 fL (81.0-99.0); Platelet Count 297 10^3/uL (130-400); Red Blood Cell Count 3.67 10^6/uL (4.20-5.40); Red Cell Dist. Width 14.3 % (11.5-14.5); White Blood Cell Count 5.7 10^3/uL (4.8-10.8)
[2024-08-14 10:30] LABS: Blood Urea Nitrogen 15 mg/dl (7-17); Calcium 8.8 mg/dl (8.4-10.2); Carbon Dioxide 25 mmol/L (22-30); Chloride 111 mmol/L (98-107); Glucose 94 mg/dl (70-99); Sodium 141 mmol/L (135-145); eGFR > 60.00
== END ==
LOC: OLABWHC 09:10
PROVIDERS: ATTENDING PHYSICIAN Family Medicine
DX: D64.9 Anemia, unspecified (principal); D50.9 Iron deficiency anemia, unspecified; N18.9 Chronic kidney disease, unspecified
CPT/HCPCS: 36415; 80048; 85027

== ENCOUNTER → 2024-11-26 10:43 | Outpatient (REF) | payer MEDICARE, SELFPAY ==
[2024-11-26 11:32] LABS: Hematocrit 32.5 % (37.0-47.0); Hemoglobin 10.3 g/dL (12.0-16.0); Mean Corp Hgb Conc. 31.7 g/dL (33.0-37.0); Mean Corpuscular Hgb 30.9 pg (27.0-31.0); Mean Corpuscular Volume 97.6 fL (81.0-99.0); Mean Platelet Volume 9.5 fL (7.4-10.4); Platelet Count 252 10^3/uL (130-400); Red Blood Cell Count 3.33 10^6/uL (4.20-5.40); Red Cell Dist. Width 14.5 % (11.5-14.5); White Blood Cell Count 5.2 10^3/uL (4.8-10.8)
[2024-11-26 12:18] LABS: ALT (SGPT) < 10 U/L (0-35); AST (SGOT) 14 U/L (14-36); Albumin 2.6 g/dl (3.5-5.0); Alkaline Phosphatase 84 U/L (38-126); Blood Urea Nitrogen 13 mg/dl (7-17); Carbon Dioxide 27 mmol/L (22-30); Chloride 110 mmol/L (98-107); Glucose 79 mg/dl (70-99); Magnesium 2.1 mg/dl (1.6-2.3); Potassium 4.9 mmol/L (3.5-5.1); Sodium 135 mmol/L (135-145); Total Bilirubin 0.4 mg/dl (0.2-1.3); Total Protein 4.7 g/dl (6.3-8.2); eGFR > 60.00
[2024-11-26 13:08] LABS: Vitamin B12 > 1000 pg/ml (239-931)
== END ==
LOC: OLABWHC 10:43
PROVIDERS: ATTENDING PHYSICIAN Family Medicine
DX: D64.9 Anemia, unspecified (principal); D51.9 Vitamin B12 deficiency anemia, unspecified; G20.A1 Parkinson's disease without dyskinesia, without mention of fluctuations; N18.9 Chronic kidney disease, unspecified
CPT/HCPCS: 36415; 80053; 82607; 83735; 85027

== ENCOUNTER → 2024-11-27 16:02 | Outpatient (REF) | payer MEDICARE, SELFPAY | LOC: OLABWHC 16:02 | PROVIDERS: ATTENDING PHYSICIAN Registered Nurse; FAMILY PHYSICIAN Family Medicine | DX: R19.7 Diarrhea, unspecified (principal) | CPT/HCPCS: 87324; 87449 ==

== ENCOUNTER → 2024-12-01 10:13 | Outpatient (REF) | payer MEDICARE, SELFPAY ==
[2024-12-01 11:20] LABS: Iron 41 ug/dl (37-170)
[2024-12-01 11:29] LABS: Percent Saturation 19 % (20-50); Total Iron Binding Capacity 213 ug/dl (265-497)
[2024-12-01 11:33] LABS: Vitamin D, 25-OH*** 31.1 ng/mL (30-80)
[2024-12-01 11:52] LABS: Ferritin 86.5 ng/ml (11.1-264.0)
== END ==
LOC: OLABWHC 10:13
PROVIDERS: ATTENDING PHYSICIAN Family Medicine
DX: M81.0 Age-related osteoporosis without current pathological fracture (principal); D64.9 Anemia, unspecified; D50.9 Iron deficiency anemia, unspecified
CPT/HCPCS: 36415; 82306; 82728; 83540; 83550

== ENCOUNTER → 2025-06-30 11:12 | Outpatient (REF) | payer MEDICARE, SELFPAY ==
[2025-06-30 11:54] LABS: Hematocrit 31.8 % (37.0-47.0); Hemoglobin 10.0 g/dL (12.0-16.0); Mean Corp Hgb Conc. 31.4 g/dL (33.0-37.0); Mean Corpuscular Volume 96.4 fL (81.0-99.0); Platelet Count 301 10^3/uL (130-400); Red Cell Dist. Width 14.2 % (11.5-14.5)
[2025-06-30 12:13] LABS: ALT (SGPT) < 10 U/L (0-35); AST (SGOT) 18 U/L (14-36); Albumin 3.2 g/dl (3.5-5.0); Alkaline Phosphatase 88 U/L (38-126); Blood Urea Nitrogen 26 mg/dl (7-17); Calcium 8.2 mg/dl (8.4-10.2); Carbon Dioxide 25 mmol/L (22-30); Chloride 112 mmol/L (98-107); Glucose 85 mg/dl (70-99); Potassium 4.8 mmol/L (3.5-5.1); Sodium 139 mmol/L (135-145); Total Protein 5.6 g/dl (6.3-8.2); eGFR > 60.00
== END ==
LOC: OLABWHC 11:12
PROVIDERS: ATTENDING PHYSICIAN Family Medicine
DX: G20.A1 Parkinson's disease without dyskinesia, without mention of fluctuations (principal)
CPT/HCPCS: 36415; 80053; 85027

== ENCOUNTER → 2025-09-09 15:57 | Outpatient (REF) | payer MEDICARE, SELFPAY ==
[2025-09-09 17:32] LABS: Hematocrit 39.3 % (37.0-47.0); Hemoglobin 11.8 g/dL (12.0-16.0); Mean Corp Hgb Conc. 30.0 g/dL (33.0-37.0); Mean Corpuscular Volume 98.7 fL (81.0-99.0); Platelet Count 351 10^3/uL (130-400); Red Cell Dist. Width 14.5 % (11.5-14.5)
[2025-09-09 17:39] LABS: ALT (SGPT) < 10 U/L (0-35); AST (SGOT) 16 U/L (14-36); Albumin 3.5 g/dl (3.5-5.0); Alkaline Phosphatase 106 U/L (38-126); Blood Urea Nitrogen 21 mg/dl (7-17); Calcium 8.9 mg/dl (8.4-10.2); Carbon Dioxide 28 mmol/L (22-30); Chloride 108 mmol/L (98-107); Glucose 109 mg/dl (70-99); Potassium 4.9 mmol/L (3.5-5.1); Sodium 137 mmol/L (135-145); Total Protein 6.4 g/dl (6.3-8.2); eGFR > 60.00
[2025-09-09 18:11] LABS: TSH 2.48 uIU/ml (0.47-4.68)
== END ==
LOC: OLABWHC 15:57
PROVIDERS: ATTENDING PHYSICIAN Family Medicine
DX: R11.0 Nausea (principal); N18.9 Chronic kidney disease, unspecified; E21.5 Disorder of parathyroid gland, unspecified; D64.9 Anemia, unspecified; K21.9 Gastro-esophageal reflux disease without esophagitis
CPT/HCPCS: 36415; 80053; 84443; 85027